=== PATIENT | female | born 1990 | race Caucasian/White ===

== ENCOUNTER 2018-10-20 13:15 | Outpatient (CLI) | payer MEDICAID, SELFPAY ==
[2018-10-20 13:41] VITALS: BMI 26.2
[2018-10-20] MEDS: CLARIFY ORDER NOTE (13:52)
[2018-10-20] MEDS: Lactated Ringers 1,000 ML 999 ML IV (13:53)
[2018-10-20 14:02] LABS: Absolute Lymphocyte Count 1.86 X10^3/ul (0.83-4.51); Absolute Neutrophil Count 4.5 X10^3/uL (2.0-7.7); Basophil# 0.02 X10^3/uL; Basophil% 0.3 % (0-1); Eosinophil# 0.19 X10^3/uL; Eosinophils% 2.7 % (0-5); Hematocrit 30.8 % (37-47); Hemoglobin 10.6 g/dl (12.0-15.0); Lymphocyte # 1.86 X10^3/ul (4.0); Lymphocyte % 26.1 % (19-41); Mean Corp Hgb Conc 34.4 g/gl (32-36); Mean Corpuscular Hgb 32.6 pg (27.0-32.0); Mean Corpuscular Volume 94.8 fL (81-99); Mean Platelet Vol. 9.6 fl (6.2-12.0); Monocyte# 0.56 X10^3/uL; Monocyte% 7.8 % (0-10); Neutrophil # 4.47 X10^3/uL (2.7-7.7); Neutrophil % 62.5 % (47-70); Platelet Count 182 K/mm3 (150-450); RBC Distribution Width CV 13.3 % (11.6-14.6); RBC Distribution Width SD 46.4 fl (35.1-43.9); Red Blood Count 3.25 M/mm3 (4.2-5.4); White Blood Count 7.1 K/mm3 (4.4-11.0)
[2018-10-20 14:05] LABS: POSITIVE COUNT NO; POSITIVE DIFFERENTIAL NO; POSITIVE MORPHOLOGY NO
[2018-10-20] MEDS: proCHLORPERazine 10 MG/2 ML Vial IV (14:15)
[2018-10-20 14:20] LABS: ALB/GLOB Ratio 0.8 RATIO (0.9-2.4); AST(SGOT) 15 U/L (15-37); Alanine Aminotransfer ALT/SGPT 16 U/L (13-56); Albumin, Serum 2.7 g/dL (3.2-5.0); Alkaline Phosphatase 76 U/L (45-117); Anion Gap 5 (5-15); BUN 7 mg/dL (7-18); BUN/Creat Ratio 14.1 RATIO (10-20); Chloride 107 mmol/L (98-107); EST Glomerular Filtration Rate 159 mL/min (>60); Est Glom Filt Rate - Afr Amer 192 mL/min (>60); Estimated Creatinine Clearance 133.67 ml/min; Globulin 3.4 g/dL (2.2-4.2); Glucose 93 mg/dL (74-106); Protein, Total 6.1 g/dL (6.4-8.2); Sodium Level 138 mmol/L (136-145)
--- NOTE | 2018-10-23 13:27 | OB.TRI.NOTE ---
History of Present Illness Date of Service: 10/20/18 Was patient seen by the physician?: Yes Reason For Visit: N/V Date of Service: 10/20/18 Final EMIGDIO: 12/03/18 Gestational age: 33w5d History of Present Illness: 28-year-old 4 para 3 female at 33+ gestational weeks presented to the office today complaining decreased movement. She states she's had a cold for about 3 days with some congestion. She was seen in urgent care yesterday for this. She denies a productive cough and she's had no fever. However she does complain that she is feeling weak and tired and has had persistent nausea and vomiting since late last evening. She states her last emesis with an hour ago. They're nonbloody. She denies any diarrhea or constipation. She denies any blood in her stools or dark tarry stools. Her urine was dark and concentrated when she left this is sampled today. She has decreased appetite. She denies any sick contacts. her is complicated to date by opioid abuse disorder and she is on Subutex maintenance. she is abused multiple substances in the past including IV injection of substances. She continues to smoke cigarettes daily.She is also had Trichomonas this and bacteria that's been treated. Her past medical history significant for asthma. obstetrical history: She's had 3 full-term vaginal deliveries. Allergies No Known Allergies Allergy (Verified 10/20/18 13:48) Laboratory Studies: Laboratory Tests 10/20/18 10/20/18 Range/Units 13:50 13:50 WBC 7.1 (4.4-11.0) K/mm3 RBC 3.25 L (4.2-5.4) M/mm3 Hgb 10.6 L (12.0-15.0) g/dl Hct 30.8 L (37-47) % MCV 94.8 (81-99) fL MCH 32.6 H (27.0-32.0) pg MCHC 34.4 (32-36) g/gl RDW 13.3 (11.6-14.6) % RDW Differential 46.4 H (35.1-43.9) fl Plt Count 182 (150-450) K/mm3 MPV 9.6 (6.2-12.0) fl Immature Gran % (Auto) 0.600 (0.0-0.9) % Neut % (Auto) 62.5 (47-70) % Lymph % (Auto) 26.1 (19-41) % [place] % (Auto) 7.8 (0-10) % Eos % (Auto) 2.7 (0-5) % Baso % (Auto) 0.3 (0-1) % Absolute Neuts (auto) 4.5 (2.0-7.7) X10^3/uL Absolute Lymphs (auto) 1.86 (0.83-4.51) X10^3/ul Total Counted Not Reportable Sodium 138 (136-145) mmol/L Potassium 4.0 (3.5-5.1) mmol/L Chloride 107 (98-107) mmol/L Carbon Dioxide 26.0 (21.0-32.0) mmol/L Anion Gap 5 (5-15) BUN 7 (7-18) mg/dL Creatinine 0.50 L (0.55-1.02) mg/dL Estim Creat Clear Calc 133.67 ml/min Est GFR (MDRD) Af Amer 192 (>60) mL/min Est GFR (MDRD) Non-Af 159 (>60) mL/min BUN/Creatinine Ratio 14.1 (10-20) RATIO Glucose 93 (74-106) mg/dL Calcium 8.0 L (8.5-10.1) mg/dL Total Bilirubin 0.20 (0.20-1.00) mg/dL AST 15 (15-37) U/L ALT 16 (13-56) U/L Alkaline Phosphatase 76 (45-117) U/L Total Protein 6.1 L (6.4-8.2) g/dL Albumin 2.7 L (3.2-5.0) g/dL Globulin 3.4 (2.2-4.2) g/dL Albumin/Globulin Ratio 0.8 L (0.9-2.4) RATIO Review of Systems Constitutional: Reports: Anorexia, Malaise, Weakness. Denies: Chills, Fever, Night Sweats Eyes: Denies: Blurred vision, Vision Change HEENT: Reports: Sinus Drainage. Denies: Ear Pain, Sore Throat Cardiovascular: Denies: Chest Pain, Edema Respiratory: Reports: Cough. Denies: Shortness of Breath, Wheezing Genitourinary: Denies: Dysuria Physical Exam General: Lethargic, - - awake, alert, appears tired Abdomen: Soft, Non Tender, Non-Distended, Gravid, Appropriate for Gestational Age Extremities:: No edema Estimated gestational size: Appropriate for gestational size NST - FHR Rate Baby A Baseline: normal Variability:: Moderate Accelerations:: 15 x 15 Decelerations:: None NST Reactive:: Yes, Appropriate for gestational age FHR Category:: Category I Uterine Activity:: no uterine contractions Impression/Plan 28-year-old 4 para 3 at 33-5/7 weeks gestation with complaint of nausea and vomiting with dehydration. Laboratory studies were reviewed. After IV fluids, patient had no further emesis. She was discharged home to be a bland diet for the next 24-48 hours, she should return if persistent nausea and vomiting again. This is likely based more than viral gastroenteritis that she's not had any diarrhea. she also complained of decreased movement. Nonstress test is reactive. She is on Subutex maintenance therapy, she will continue her follow-up with her physician regarding this. She is to follow-up in our office in 1 week or as needed. She is to do daily kick counts. She should call the office if she gets a fever, worsening of any of her symptoms or she has any other concerns. Patient is comfortable with this plan.
== END 2018-10-20 15:30 | disposition home or self-care (01) ==
LOC: WPOUT 13:29 → WP 13:30
PROVIDERS: Referring Provider Obstetrics & Gynecology; Visit Provider Obstetrics & Gynecology
DX: O21.2 Late vomiting of pregnancy (principal); O26.893 Other specified pregnancy related conditions, third trimester; E86.0 Dehydration; J45.909 Unspecified asthma, uncomplicated; O99.323 Drug use complicating pregnancy, third trimester; F11.10 Opioid abuse, uncomplicated; O99.333 Smoking (tobacco) complicating pregnancy, third trimester; F17.210 Nicotine dependence, cigarettes, uncomplicated; Z3A.33 33 weeks gestation of pregnancy
CPT/HCPCS: 96361; 96374; 36415; 59025; 59050; 80053; 85025; 99218; J7120; G0378

== ENCOUNTER 2018-11-04 21:30 | Outpatient (CLI) | payer MEDICAID, SELFPAY ==
[2018-11-04 21:52] VITALS: BMI 26.2
[2018-11-04 22:31] LABS: Bacteria 0 SEEN /hpf (None Seen); Mucous, Urine 0 SEEN /hpf (<or=2+); Red Blood Cells-Urine 0 SEEN /hpf (0-5)
[2018-11-04 22:40] LABS: Color, Urine Yellow (Yellow); Glucose, Dipstick Normal (Normal); Ketone-Dipstick 15 mg/dl (Negative); Leukocyte Esterase-Dipstick 25 /ul (Negative); Nitrite-Dipstick Negative (Negative); Occult Blood-Urine Negative /ul (Negative); Protein-Dipstick Negative (Negative); Specific Gravity, Urine 1.005 (1.002-1.030); Urine Bilirubin Dipstick Negative (Negative); Urine Clarity Clear (Clear); Urine Urobilinogen Normal (Normal)
[2018-11-04 22:51] LABS: Absolute Neutrophil Count 7.3 X10^3/uL (2.0-7.7); Basophil# 0.01 X10^3/uL; Basophil% 0.1 % (0-1); Eosinophil# 0.22 X10^3/uL; Hemoglobin 11.8 g/dl (12.0-15.0); Lymphocyte % 22.6 % (19-41); Mean Corp Hgb Conc 34.7 g/gl (32-36); Mean Corpuscular Hgb 32.7 pg (27.0-32.0); Mean Corpuscular Volume 94.2 fL (81-99); Mean Platelet Vol. 9.6 fl (6.2-12.0); Monocyte# 1.01 X10^3/uL; Monocyte% 9.1 % (0-10); Neutrophil # 7.25 X10^3/uL (2.7-7.7); Neutrophil % 65.6 % (47-70); POSITIVE COUNT NO; POSITIVE DIFFERENTIAL NO; POSITIVE MORPHOLOGY NO; Platelet Count 194 K/mm3 (150-450); RBC Distribution Width CV 13.3 % (11.6-14.6); RBC Distribution Width SD 45.6 fl (35.1-43.9); Red Blood Count 3.61 M/mm3 (4.2-5.4); White Blood Count 11.1 K/mm3 (4.4-11.0)
[2018-11-04] MEDS: Lactated Ringers 1,000 ML 999 ML IV (22:51)
[2018-11-04] MEDS: Ondansetron 4 MG/2 ML Vial IV (22:51)
[2018-11-04 22:56] LABS: Squamous Epithelial Cells - UA 5-10 SEEN /hpf (5-10); White Blood Cells 0-5 SEEN /hpf (0-5)
[2018-11-04 23:06] LABS: ALB/GLOB Ratio 0.8 RATIO (0.9-2.4); AST(SGOT) 15 U/L (15-37); Alanine Aminotransfer ALT/SGPT 15 U/L (13-56); Albumin, Serum 2.9 g/dL (3.2-5.0); Alkaline Phosphatase 93 U/L (45-117); Anion Gap 5 (5-15); BUN 8 mg/dL (7-18); BUN/Creat Ratio 17.1 RATIO (10-20); Calcium,Total 8.6 mg/dL (8.5-10.1); Chloride 108 mmol/L (98-107); Creatinine, Serum 0.47 mg/dL (0.55-1.02); EST Glomerular Filtration Rate 170 mL/min (>60); Est Glom Filt Rate - Afr Amer 205 mL/min (>60); Globulin 3.7 g/dL (2.2-4.2); Glucose 80 mg/dL (74-106); Potassium 3.7 mmol/L (3.5-5.1); Protein, Total 6.6 g/dL (6.4-8.2); Sodium Level 138 mmol/L (136-145)
[2018-11-04 23:33] VITALS: BP 96/51; PULSE 85; RESP 18; TEMP 36.1
[2018-11-04] MEDS: Acetaminophen 500 MG Tablet 1000 MG PO (23:42)
--- NOTE | 2018-11-09 12:15 | OB.TRI.PN_ITS ---
Progress Notes Date of Service: 11/04/18 Progress Note: 28 year old female at 35w6d gestational age presented to L&D with complaint of uterine contractions. No vaginal bleeding or LOF. O: NST reactive. 135, moderate variability, accels A: Abdominal pain P: 1) NST reactive 2) Irregular contractions, no cervical change or progression. D/C home. PTL precautions reviewed 3) Follow up in office as scheduled. Laboratory Studies: Laboratory Tests 11/04/18 11/04/18 11/04/18 Range/Units 22:40 22:40 22:25 WBC 11.1 H (4.4-11.0) K/mm3 RBC 3.61 L (4.2-5.4) M/mm3 Hgb 11.8 L (12.0-15.0) g/dl Hct 34.0 L (37-47) % MCV 94.2 (81-99) fL MCH 32.7 H (27.0-32.0) pg MCHC 34.7 (32-36) g/gl RDW 13.3 (11.6-14.6) % RDW Differential 45.6 H (35.1-43.9) fl Plt Count 194 (150-450) K/mm3 MPV 9.6 (6.2-12.0) fl Immature Gran % (Auto) 0.600 (0.0-0.9) % Neut % (Auto) 65.6 (47-70) % Lymph % (Auto) 22.6 (19-41) % [place] % (Auto) 9.1 (0-10) % Eos % (Auto) 2.0 (0-5) % Baso % (Auto) 0.1 (0-1) % Absolute Neuts (auto) 7.3 (2.0-7.7) X10^3/uL Absolute Lymphs (auto) 2.50 (0.83-4.51) X10^3/ul Total Counted Not Reportable Sodium 138 (136-145) mmol/L Potassium 3.7 (3.5-5.1) mmol/L Chloride 108 H (98-107) mmol/L Carbon Dioxide 25.0 (21.0-32.0) mmol/L Anion Gap 5 (5-15) BUN 8 (7-18) mg/dL Creatinine 0.47 L (0.55-1.02) mg/dL Estim Creat Clear Calc 142.20 ml/min Est GFR (MDRD) Af Amer 205 (>60) mL/min Est GFR (MDRD) Non-Af 170 (>60) mL/min BUN/Creatinine Ratio 17.1 (10-20) RATIO Glucose 80 (74-106) mg/dL Calcium 8.6 (8.5-10.1) mg/dL Total Bilirubin 0.20 (0.20-1.00) mg/dL AST 15 (15-37) U/L ALT 15 (13-56) U/L Alkaline Phosphatase 93 (45-117) U/L Total Protein 6.6 (6.4-8.2) g/dL Albumin 2.9 L (3.2-5.0) g/dL Globulin 3.7 (2.2-4.2) g/dL Albumin/Globulin Ratio 0.8 L (0.9-2.4) RATIO Urine Color Yellow (Yellow) Urine Clarity Clear (Clear) Urine pH 7.0 (5.0 - 8.0) Ur Specific [place] 1.005 (1.002-1.030) Urine Protein Negative (Negative) mg/dl Urine Glucose (UA) Normal (Normal) mg/dl Urine Ketones 15 H (Negative) mg/dl Urine Occult Blood Negative (Negative) /ul Urine Nitrite Negative (Negative) Urine Bilirubin Negative (Negative) mg/dL Urine Urobilinogen Normal (Normal) mg/dl Ur Leukocyte Esterase 25 H (Negative) /ul Urine RBC 0 SEEN (0-5) /hpf Urine WBC 0-5 SEEN (0-5) /hpf Ur Squamous Epith Cells 5-10 SEEN (5-10) /hpf Urine Bacteria 0 SEEN (None Seen) /hpf Urine Mucus 0 SEEN (<or=2+) /hpf
== END 2018-11-04 23:50 | disposition home or self-care (01) ==
LOC: WPOUT 21:51 → WP 21:52
PROVIDERS: Referring Provider Advanced Practice Midwife; Visit Provider Advanced Practice Midwife
DX: O26.893 Other specified pregnancy related conditions, third trimester (principal); R10.9 Unspecified abdominal pain; Z3A.35 35 weeks gestation of pregnancy
CPT/HCPCS: 96361; 96374; 36415; 59025; 59050; 80053; 81001; 85025; 87086; 87088; 99218; J7120; G0378; J2405

== ENCOUNTER 2018-11-26 06:45 | Inpatient (IN) | payer MEDICAID, SELFPAY ==
[2018-11-26 07:28] VITALS: BMI 27.5
[2018-11-26] MEDS: Lactated Ringers 1,000 ML 50 ML IV ×3 (07:55→14:34)
[2018-11-26] MEDS: Oxytocin 30 units/NS 500 ml 30 UNITS/500 ML IV.SOLN IV (08:22)
[2018-11-26 08:31] LABS: Absolute Lymphocyte Count 2.05 X10^3/uL (0.83-4.51); Absolute Neutrophil Count 5.2 X10^3/uL (2.0-7.7); Basophil# 0.02 X10^3/uL; Basophil% 0.2 % (0-1); Eosinophil# 0.26 X10^3/uL; Eosinophils% 3.1 % (0-5); Hemoglobin 12.3 g/dL (12.0-15.0); Lymphocyte # 2.05 X10^3/ul (4.0); Lymphocyte % 24.6 % (19-41); Mean Corp Hgb Conc 34.2 g/dL (32-36); Mean Corpuscular Hgb 32.7 pg (27.0-32.0); Mean Corpuscular Volume 95.7 fL (81-99); Mean Platelet Vol. 10.5 fl (6.2-12.0); Monocyte# 0.77 X10^3/uL; Monocyte% 9.2 % (0-10); NRBC Flagged by Analyzer 0 % (0-5); Neutrophil % 62.4 % (47-70); Platelet Count 174 K/mm3 (150-450); RBC Distribution Width CV 13.5 % (11.6-14.6); RBC Distribution Width SD 46.8 fl (35.1-43.9); Red Blood Count 3.76 M/mm3 (4.2-5.4); White Blood Count 8.3 K/mm3 (4.4-11.0)
--- NOTE | 2018-11-26 08:33 | PCM.HP.OB ---
History History of this : This is a 28 year-old, G [], P [], at weeks gestational age. Medical History: Medical History (Last Updated 11/26/18 @ 08:35 by Disha Fan) Asthma J45.909 Chlamydia A74.9 Polysubstance abuse F19.10 Allergies adhesive tape Allergy (Verified 11/04/18 22:00) Rash latex Allergy (Verified 11/04/18 21:58) Rash Home Medications: Home Medications Buprenorphine HCl/Naloxone HCl [Suboxone 8 mg-2 mg Sl Film] 8 mg PO DAILY 10/20/18 Docusate Sodium [Stool Softener] 100 mg PO DAILY 10/20/18 Ferrous Sulfate 325 mg PO DAILY 10/20/18 Pnv No.95/Ferrous Fum/Folic AC [ Caplet] 1 each PO DAILY 10/20/18 Smoking Status: Current every day smoker Substance Use Type: Heroin - on subutex Heart Tracin with mod variability, accels TOCO Analysis: Irregular History Past Pregnancies: Past Pregnancies Delivery Date Name GA/Weeks Outcome Route Weight Infant Gender Labor Length Anesthesia Delivery Location Provider FOB Labs: see [facility] H&P Physical Exam General: Alert, Oriented x3 Abdomen: Soft, Non Tender, Non-Distended, Gravid Neurological: Cranial nerves II-XII grossly intact STUDENT MINISTRIES DIRECTOR: Normal external genitalia Estimated gestational size: Appropriate for gestational size Cervix Dilation (cm): 3 Station: -1 Effacement (%): 60 Assessment/Plan This is a 28 year-old female at 39 weeks for induction Maternal substance abuse - on subutex Induction - on pitocin GBS negative GC/chlam & trich negative 11/03/18 Pain - plan for epidural Social work consult
[2018-11-26 08:38] LABS: Amphetamine Urine VISTA NEGATIVE (<1000 ng/mL); Barbiturate Urine VISTA NEGATIVE (< 200 ng/mL); Benzodiazepine Urine VISTA NEGATIVE (< 200 ng/mL); Cocaine Urine VISTA NEGATIVE (< 300 ng/mL); Ecstacy Urine VISTA NEGATIVE (< 500 ng/mL); Methadone Urine VISTA NEGATIVE (< 300 ng/mL); PCP Urine VISTA NEGATIVE (< 25 ng/mL); THC Urine VISTA NEGATIVE (< 50 ng/mL); Vista UDS pH Range 5
[2018-11-26] MEDS: fentaNYL-bupivacaine (epidural) 100 ML BAG EPIDURAL ×2 (10:20→14:53)
[2018-11-26 11:53] LABS: BUP Internal Control LINE = VALID (VALID); Buprenorphine Drug Screen Positive (<10 ng/mL)
--- NOTE | 2018-11-26 12:08 | PCM.PN.BLA ---
Progress Note S: Patient comfortable with epidural O: cvx - 3/70/-2 AROM clear fluid. IUPC placed fhts 125 with mod variability, accels tocos Q3 minutes A&P: continue pitocin induction
--- NOTE | 2018-11-26 16:30 | CASEMGMT ---
Social Work Labor and Delivery This telegraphic typewriter operator chief received verbal notification from nursing staff regarding patient/mother of baby (MOB) presentation to the hospital. This telegraphic typewriter operator chief had also received handoff report from [facility] Mike tension worker, prior to delivery, with handoff report of possible social issues for MOB, and concern whether MOB may be able to take baby to [facility] after (based on reports the hide worker received from [facility] staff). This telegraphic typewriter operator chief received call from Ita Hutchison, a nurse for [facility] and [facility] program. Per Anisa, MOB has had some compliance issues since coming to [facility] in September, with an example being that MOB left the house even after being told that could not have a pass to do so. MOB reportedly came back then and apologized, but this is a clear rule that MOB broke. MOB was given another chance however and allowed to continue to live at [facility] for the duration of . Concern voiced about whether MOB will be able to care for baby, and that MOB really needs to be able to care for baby independently at the [facility]. MOB has reportedly exhibited immaturity, irritability and uses words that can be mean. Per Anisa, MOB can return to [facility] but the concern is whether MOB care for baby on own. [facility] would like to be updated as able on how things are going for MOB and baby. Plan: See MOB tomorrow, 11-27-2018, for assessment. -JANNET Lee, SCIENTIFIC INFORMATICS PROJECT LEADER
[2018-11-26] MEDS: Oxytocin 30 units/NS 500 ml 30 UNITS/500 ML IV.SOLN 334 UNITS IV (18:39)
--- NOTE | 2018-11-26 18:58 | PCM.OPRPT ---
Vaginal Delivery Maternal Presentation: Active Labor Amniotic Membrane Rupture Type: Artificial Amniotic Fluid Description: Clear Final EMIGDIO: 12/03/18 Gestational age: 39 Weeks and 0 Days Date of Procedure: 11/26/18 Pre-Operative Diagnosis: Maternal substance abuse, on subutex Post-Operative Diagnosis: Same Surgery/ Procedure Performed: Spontaneous Vaginal Delivery Type of Anesthesia: Epidural Description of Procedure: Patient prepped & draped when c/c/+2. She pushed & delivered the head. head gently guided to allow delivery of anterior & posterior shoulders. No excess traction placed on head. Body delivered & placed on maternal abdomen. 3VC clamped & cut in delayed fashion. Placenta delivered with gentle traction and good uterine tone obtained. Presentation: MAXWELL Placental Delivery Description: Expressed Placenta Disposition: [facility] Cord Vessel Description: 3 Vessels Cord Entanglement: None Estimated Blood Loss: 350ml Infant A gender: Female (1 minute): 8 (5 minute): 9 Episiotomy Description: None Laceration: None Medications given after delivery: IV Pitocin Complications: None
[2018-11-26] MEDS: Oxytocin 30 units/NS 500 ml 30 UNITS/500 ML IV.SOLN 167 UNITS IV (19:10)
[2018-11-26] MEDS: Acetaminophen 500 MG Tablet 1000 MG PO (22:00)
[2018-11-26] MEDS: 0.9% Saline Lock 10 ML Syringe IV (22:01)
[2018-11-26] MEDS: Ondansetron 4 MG/2 ML Vial IV (22:01)
[2018-11-27 00:30] VITALS: BP 94/54; PULSE 62; RESP 16; TEMP 37.1
[2018-11-27] MEDS: Ibuprofen 600 MG Tablet PO ×4 (00:48→20:48)
[2018-11-27 04:00] VITALS: BP 109/49; PULSE 62; RESP 18; TEMP 36.8
[2018-11-27] MEDS: Acetaminophen 500 MG Tablet 1000 MG PO ×2 (06:55→23:29)
--- NOTE | 2018-11-27 07:10 | PN.OBGYN_ITS ---
Subjective: No complaints other than fatigue. - Physical Exam General: Alert, Oriented x3 Abdomen: Soft, Non Tender, Non-Distended, Gravid - ff mid & below umb Extremities: No Calf Tenderness Neurological: Cranial nerves II-XII grossly intact Vital Signs Temp Pulse Resp BP 98.3 F 62 18 109/49 L 11/27/18 04:00 11/27/18 04:00 11/27/18 04:00 11/27/18 04:00 Weight: 150 lb 5.684 oz Body Mass Index (BMI) 27.5 Intake and Output for Last 24 Hours 11/25/18 11/26/18 11/27/18 23:59 23:59 23:59 Intake Total 2398 / 2398 Output Total 500 / 500 Balance 2398 / 2398 -500 / -500 Laboratory Tests Past 24 Hrs 11/26/18 11/26/18 11/26/18 07:45 07:45 07:55 WBC 8.3 RBC 3.76 L Hgb 12.3 Hct 36.0 L MCV 95.7 MCH 32.7 H MCHC 34.2 RDW Std Deviation 46.8 H RDW Coeff of [place] 13.5 Plt Count 174 MPV 10.5 Immature Gran % (Auto) 0.500 Neut % (Auto) 62.4 Lymph % (Auto) 24.6 [place] % (Auto) 9.2 Eos % (Auto) 3.1 Baso % (Auto) 0.2 Absolute Neuts (auto) 5.2 Absolute Lymphs (auto) 2.05 Absolute Nucleated RBC 0.00 Nucleated RBC % 0 Urine Opiates Screen NEGATIVE Ur Buprenorphine Scrn Positive H Urine Methadone Screen NEGATIVE Ur Barbiturates Screen NEGATIVE Ur Phencyclidine Scrn NEGATIVE Ur Amphetamines Screen NEGATIVE U Methamphetamin-MDMA NEGATIVE U Benzodiazepines Scrn NEGATIVE Urine Cocaine Screen NEGATIVE U Cannabinoids Screen NEGATIVE Ur Drug Screen Comment Blood Type Antibody Screen Screen Baby's Blood Type Baby's DULCE 11/26/18 11/26/18 11/26/18 07:55 07:55 22:50 WBC RBC Hgb Hct MCV MCH MCHC RDW Std Deviation RDW Coeff of [place] Plt Count MPV Immature Gran % (Auto) Neut % (Auto) Lymph % (Auto) [place] % (Auto) Eos % (Auto) Baso % (Auto) Absolute Neuts (auto) Absolute Lymphs (auto) Absolute Nucleated RBC Nucleated RBC % Urine Opiates Screen Ur Buprenorphine Scrn Urine Methadone Screen Ur Barbiturates Screen Ur Phencyclidine Scrn Ur Amphetamines Screen U Methamphetamin-MDMA U Benzodiazepines Scrn Urine Cocaine Screen U Cannabinoids Screen Ur Drug Screen Comment Blood Type A NEGATIVE Antibody Screen TNP NEGATIVE Screen NEGATIVE Baby's Blood Type O POSITIVE Baby's DULCE NEGATIVE Medical Necessity - Tobacco Use Smoking Status: Current every day smoker Assessment/Plan PPD #1 Routine care Tobacco use - nicotine patch Substance abuse - on subutex PPBC - plan for nexplanon
[2018-11-27 08:07] VITALS: BP 104/48; PULSE 64; RESP 16; TEMP 37; O2SAT 99
--- NOTE | 2018-11-27 08:10 | NURSING ---
This RN entered room at approx 0745. Pt was on phone and stated They wake me up every two minutes for bullshit things here Pt then told person she was talking to that she hadn't slept all night, and someone has to come hold my baby. Rn then stated importance of pt sleeping. Pt states I am not laying her in that crib when she is shaking,- No jitteriness observed by this RN.- and I am not sending her to that [facility] nursery. This RN reviewed Baby safety and reminded pt she could not sleep with baby in the bed. Pt became more agitated, stated I can see how this day is going to go. Attempts made to calm pt without success. This rn sat down at bedside, talked in calm manner. Pt stated You're harassing me. Pt then put highway construction inspector light and yelling I want another fucking nurse, get her out of here. Ashley, automation/controls manager of special care nursery and multiple RN to room after hearing pt yelling. Attempting to calm pt. At this point this RN left room. Security notified.
[2018-11-27] MEDS: Docusate Sodium 100 MG Capsule PO (08:40)
[2018-11-27] MEDS: BUPRENORPHINE HCL 8 MG TAB.SUBL SL (08:41)
[2018-11-27] MEDS: Prenatal Vits Tablet 1 TABLET PO (08:41)
[2018-11-27 13:00] VITALS: BP 109/70; PULSE 73; RESP 16; TEMP 36.7; O2SAT 99
--- NOTE | 2018-11-27 13:00 | CASEMGMT ---
Social Work Assessment Labor and Delivery Unit Date of Referral: 11/26/2018 Time of Referral: 1200 Referred By: RENETTA Underwood Date of Intervention: 11/27/2018 Time of Intervention: 1300 Reason for Referral: maternal substance use; on Subutex; living at [facility]; non custody of older children. History obtained from: mother of baby (JES) Naty Briones, medical records; with MOB?s permission, MOB?s foster mother Lucinda Kyle present. Household composition: Currently living at [facility] treatment since September 14, 2018. MOB voices intent to return to this treatment facility with baby. Patient's parent/guardian status: MOB is 28 year old single female. MOB reports paternity is between 2 men and does not plan to involve possible fathers for at least a year, so that MOB can work on own recovery. JES now has 4 children. The oldest 3 have been legally adopted. Minor children include: Moo (Sandhya) Jeramie, age 8, adopted by Katerine Bobo. Yan (Felipe) Kyle, age 6, adopted by Bill Wright. [facility] Kyle, age 4, adopted by the Jose Luis. baby girl to be named Oneil Wright, born on [birth year]2018. Medical History: JES is G4, P3 to 4 after delivering Oneil. MOB with late care starting at 29 weeks gestation. MOB found out about at [facility] where MOB sought treatment in July 2018 for an overdose of heroin laced with fentanyl. JES then went to detox in September and started PNC once in residential treatment. First PNC appointment 09-21-2018. Medical record indicates MOB has history of asthma and hemorrhage. PNC record indicates first ultrasound identified as a twin and then later identified as a stafford . MOB plans to get Nexplanon arm implant for control. Baby Oneil born weighing 6 pounds 7 ounce. Apgars 8 and 9 at 1 and 5 minutes of life. Educational Status: Completed through the 11th grade and dropped out in August, 2 months before set to graduate. MOB reports to be able to read, write, and understand what is read. Financial Status: Food and medical through [facility]. Supplies: MOB reports to have pack-n-play, crib, car seat, clothing, diapers, wipes, and swaddler. MOB planning to breast feed baby. Childcare/Caregiver(s): MOB is planning to be primary caregiver and then look for day care when baby is 8 weeks old. Transportation: Relies on bus passes, Lucinda, cousin Paige, and staff from [facility]. Programs/Agencies Involved: [facility] for food and medical, [place], [facility] for counseling/MAT/residential treatment, and [facility]. [facility] and also used the [facility] program. Children Services/Legal Issues: No current legal issues discussed or reported. MOB reports past history with [facility] for older children. MOB reports the oldest 2 children went into care of family in 2012, when JES just kind of stopped coming around. In 2014 children services became involved at time of ?s (now named Twila) due to being positive for cocaine a . As a minor, JES was in foster care and lived with Lucinda on and off from the age of 15. Behavioral Health Issues: Mental Health History: MOB reports history of anxiety but reports it is ?normal anxiety? when this bond writer was describing signs and symptoms of mood and anxiety issues. MOB denies history of depression, anxiety, or bipolar disorder. Denies any history of suicidal ideation, plan, intent, or attempts; denies similarly regarding homicide and harm to others. Substance Use History: Chart indicates maternal history of alcohol use, up to a 1/5 of liquor a day prior to seeking detox in September 2018. Chart indicates MOB with use of heroin for only a few months, and that MOB used mostly because friends were using. MOB did use fentanyl at least once, in July when MOB overdosed. MOB states had to have 9 doses of Narcan, and that MOB did not know heroin was laced. MOB reports drug of choice has been cocaine. Chart indicated cocaine use has been for years, with MOB both smoking and using IV. MOB reports has used some marijuana during this but not much. Denies use of other illicit drugs. MOB reports sober date as 09.11.2018 when MOB went in for detox. MOB started on Subutex when in detox at [facility] from 09-11 to 09-14-2018. Family History: not discussed. Drug Screens: maternal screen on 09/11/2018 positive for cocaine and Negative on 11/26/2018 with the exception of Subutex. Baby?s urine also negative except for Subutex. Meconium is pending. Baby receiving ABI scoring and so far scores are ranging 1-3. Family/Social Stressors: Maternal substance use, active during but did decide to seek out treatment for the first time ever during this . Late care. MOB voices worry about whether will be given the chance to take baby back to [facility]. Support Systems: Lucinda, MOB?s foster mother who has also adopted 2 of MOB?s older children. Lucinda has identified that if for some reason MOB is not able to take baby home, then would be prepared to care for this baby too. Paige Wright is a cousin and a good support. MOB has counselor Chiquita at the [facility]. Depression/Shaken Baby/Safe Sleeping: MOB able to give appropriate responses on shaken baby. Educated to safe sleeping. Educated to depression and anxiety, risk factors present, and importance of MOB accepting help and support if needed. ASSESSMENT: MOB willing to meet with this bond writer and indicated that it is okay for Lucinda to be present. MOB talkative and open about all subjects, even spontaneously informing this bond writer in front of Lucinad that MOB was prostituting self for drugs during active phase of addiction. MOB was pleasant with this bond writer, maintained polite and respectful manner, did not cuss. MOB held good eye contact, tearful at times and cried openly at one point, apologizing and making statements that this bond writer will now think MOB to be ?crazy? because MOB had cried. MOB anxious and affect congruent to mood. MOB did show irritability at one point when topic discussed/broached about courtesy room availability, as evidenced by MOB staring off, facial features tensing and tone becoming more abrupt. MOB circumstantial at times and often turned focus on telling this bond writer how much MOB has done in treatment and that MOB is getting ready to move to transitional housing/sober living, that has just anther month and a half at the residential home; MOB reports to get along with everyone. MOB admits to having some difficulty at the beginning at [facility], that did walk off one time but came back and apologize for behaviors. MOB with limited insight and judgement regarding the topic of mood and anxiety issues, as MOB interjected that does not have this problem, that feeling good, not seeming to hear that MOB is at risk due to history and stressors, and wanting to focus on MOB's perception that MOB is feeling good, recovery is going good and that ready to take the baby home. MOB reports her children are her life, that really wants to be able to care for the as MOB does not plan to have anymore babies. MOB held the baby for the duration of social work visit. MOB was gentle with baby, had baby to breast a couple of times. Addressed with MOB, MOB?s outburst today with the RN earlier today. MOB voiced her perception as to why MOB reacted in such a way. Listened to MOB?s concerns, emotional support and supportive encouragement given. Discussed with MOB, as to MOB being the person to have control over own emotions and reactions but that staff is here to support MOB if knows what may be helpful. MOB voiced that should not have acted as did but is not going to apologize as did nothing wrong to the RN. This bond writer addressed with MOB need to call children services, which MOB voiced to understand but also hope that MOB will be allowed to keep the baby. Answered MOB?s questions as able. Observed Lucinda try to allow MOB to answer questions, but did interject when engaged by healthcare social worker or by MOB. Lucinda presented as supportive and calming presence to MOB, helped MOB with some reality orientation when MOB started to catastrophize thinking patterns. Lucinda also reframed some of the education that healthcare social worker discussed about courtesy rooms and MOB being able to stay based on availability. Lucinda supported this bond writer?s efforts to try to get MOB to voice plan for self should MOB become irritable again and need to cool off. Going to meetings discussed, remaining engaged with treatment at [facility]. MOB voiced that as long as baby is in the hospital, that will not be leaving the baby. MOB made inference that the baby could be hurt by someone if not around. Addressed with MOB that baby will at [facility] for a minimum of 7 days for ABI monitoring. MOB voices understanding and agreement. Broached that should ABI scores escalate then baby may be moved to [facility] for further care and treatment. Release to [facility] and [facility] signed today for continuity of care. PLAN: Social Work to follow, and plan to call [facility]. Collaborate with [facility] and [facility] as needed or indicated. MOB voices agreement with plan. -TIERA Lee, SURGICAL ELASTIC KNITTER HAND FRAME
--- NOTE | 2018-11-27 14:00 | CASEMGMT ---
Social Work Labor and Delivery Called [facility] ([facility]) and spoke with Milagro Pope. Referral given due to substance exposed . Brief maternal and infant histories provided including concerns received from [place], MOB?s other children being adopted out, MOB's actions and reactions at hospital with nursing today, risk factors present for this family. Also reported MOB entering treatment on own and of seemingly positive support system present from foster mother. [facility] to open case for investigation and agency will be making contact today or Friday. Received call from Anisa at [facility]. Updated that MOB had the baby and looking at a weekend discharge for MOB this weekend sometime. Discussed that MOB can be in a courtesy room, but that MOB did have an outburst today with nursing. Discussed that if MOB would continue to have such outbursts the the courtesy room would likely not be able to be offered. Discussed the matter for MOB?s Subutex. [facility] will dispense 2 days at a time to MOB, so MOB will have to be checking in with the [facility] on a regular basis. Anisa asked to be called by staff when MOB is to be discharged, just to ensure that all can be on the same page for continuity of care of MOB and baby. Met with MOB who was alone with baby. MOB holding the baby. Updated MOB that call to [facility] has been made. Updated that [facility] will be making contact with MOB either today or Friday but this play writer is not sure. Updated to conversation with Anisa at [facility], of expectation to get Subutex for 2 days at a time once MOB is discharged as a patient. Encouraged MOB to be in contact with [facility] too. MOB voices agreement to this plan. MOB pleasant and cooperative with this play writer. Plan: Continue to follow and assist, collaborate with community agencies for after care needs for MOB and baby. -JANNET Lee, MARKETING AUTOMATION ANALYST
--- NOTE | 2018-11-27 15:00 | CASEMGMT ---
Social Work Labor and Delivery Laisha Muller from [facility] ([facility]) to the unit to see mother of baby (MOB). Laisha's contact information is [phone] extension [phone]. This typewriter assembler met with MOB and [facility], as MOB voiced to this typewriter assembler preference for this typewriter assembler to be present and help MOB with answering questions and explaining self. This typewriter assembler just observed interview and interjected at the end when MOB became tearful due to not having an answer today about what [facility] is going to do. Reframed to MOB that [facility] has a job to do, and part of that is looking into all avenues and talking to care providers so that [facility] can make an informed decision about interventions to be taken with this family. Plan: Social Work to follow and assist, continue collaboration with [facility] and [facility] staff. [facility] plans to come back to see MOB on Friday, check on how things are going. -JANNET Lee, SPORTS PHOTOGRAPHER
[2018-11-27 16:16] VITALS: BP 126/81; PULSE 61; RESP 16; TEMP 36.6; O2SAT 99
--- NOTE | 2018-11-27 17:00 | CASEMGMT ---
Social Work Labor and Delivery Met with transitional studies instructor Dori Mcduffie and staffing mgr Corina Higgins for collaboration on plan for MOB and baby moving forward. Updated that talked to MOB this date about need for appropriate behaviors, about importance of self-care and what MOB can do to care for self if feeling frustrated. Discussed that MOB has voiced when feeling overwhelmed that likes to have space for a few minutes to calm down and breath, before having to continue talking. MOB also voiced liking to know what plans are, what to expect and to be part of the decision making process when able. Updated RN?s that [facility] when MOB goes to hotel status, as said agency will be dispensing Subutex 2 days at a time. Provided the RN?s contact information for Anisa, not to be given to MOB. RN?s discussed that MOB can be offered a courtesy room but if MOB acts out as did today then courtesy room will be removed as per discussion with unit management. This telegraphic typewriter operator suggested 2 staff be present for discussion with MOB when rules are presented, so there is no potnetial misunderstanding with MOB later on as to what MOB hears staff provide for education. This telegraphic typewriter operator met with MOB and updated that this telegraphic typewriter operator talked with nursing about MOB liking to have space to breath when feeling overwhelmed. Discussed with MOB about expectation for the courtesy room, explaining to MOB that it is of great importance that MOB use coping skills and stress management should MOB start to feel irritable, as another outburst like today will result in not being able to have a courtesy room, as such outbursts impact the unit as a whole and can create safety issues for others on the unit. MOB voiced understanding and expressed thanks fro being told of expectations. MOB voiced thanks for time social media editor has taken today. Plan: Social work to follow and assist as needed. Continue collaboration with [facility] and [facility] plans to see MOB and baby again on Friday12-01-2018 for updates. Baby to be monitored for ABI for 7 days, MOB will go to hotel status during that time and nursing staff will review rules more in depth at that time. -JANNET Lee, RENTAL BOATS CARETAKER
[2018-11-27 21:00] VITALS: BP 116/76; PULSE 62; RESP 16; TEMP 36.6
[2018-11-28 03:45] VITALS: BP 103/60; PULSE 87; RESP 18; TEMP 37.6
[2018-11-28] MEDS: Ibuprofen 600 MG Tablet PO ×2 (04:00→18:11)
[2018-11-28] MEDS: Acetaminophen 500 MG Tablet 1000 MG PO (08:41)
[2018-11-28 10:00] VITALS: BP 122/86; PULSE 76; RESP 16; TEMP 36.6
[2018-11-28] MEDS: BUPRENORPHINE HCL 8 MG TAB.SUBL SL (11:11)
[2018-11-28 12:47] VITALS: BP 130/71; PULSE 74; RESP 16; TEMP 36.6
--- NOTE | 2018-11-28 12:49 | PCM.PN.OB ---
Subjective: Doing well per patient and nursing staff. Ambulating and taking PO without difficulty. . Denies any headache, visual changes, chest pain, SOB, or other concerns. Baby ABI 4 this afternoon. Appropriate with infant care. Discharge to hotel status today. Requesting Nexplanon insertion. Objective: Reviewed risks, benefits, MOA, and insertion procedure of Nexplanon with patient. Right handed. No contraindications. Patient identified by name and date of . Left upper arm raised above head. Site cleansed and prepped with betadine. 2ml 1% Lidocaine instilled into upper arm at insertion site. Nexplanon inserted into left upper arm without difficulty. Patient tolerated well. Steri strip and pressure dressing applied. To remove pressure dressing in 24hr. - Physical Exam General: Alert, Oriented x3, Cooperative, - - Patient with flight of ideas from one topic to another but pleasant HEENT: Atraumatic, Normocephalic Neck: Trachea Midline Lungs: Clear to auscultation, Normal air movement, No rhonchi, No wheeze Cardiovascular: Regular rate, Regular Rhythm, No murmurs Abdomen: Bowel Sounds Present, - - Fundus firm 2 below U. Extremities: No edema, - - Roney's negative Psych/Mental Status: Normal Affect, Appropriate Vital Signs Temp Pulse Resp BP Pulse Ox 99.7 F H 87 18 103/60 99 11/28/18 03:45 11/28/18 03:45 11/28/18 03:45 11/28/18 03:45 11/27/18 16:16 Oxygen Delivery Method Room Air Weight: 150 lb 5.684 oz Body Mass Index (BMI) 27.5 Intake and Output for Last 24 Hours 11/26/18 11/27/18 11/28/18 23:59 23:59 23:59 Intake Total 2398 / 2398 Output Total 500 / 500 Balance 2398 / 2398 -500 / -500 Medical Necessity - Tobacco Use Smoking Status: Current every day smoker Assessment/Plan A:PPD #2 Nexplanon insertion, Left upper arm P: 1) Reviewed discharge instructions. Discharge to Hotel status as baby with ABI and requiring further stay. 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 They will bring medication to hospital. 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 3) Nexplanon inserted today, patient tolerated well. 4) To follow up in 2 weeks and 6 weeks . 5) Is not using Nicotine patch, advised smoking cessation 6) [facility]
[2018-11-28] MEDS: Etonogestrel 68 MG IMPLANT SQ (14:47)
[2018-11-28] MEDS: Prenatal Vits Tablet 1 TABLET PO (17:17)
[2018-11-28] MEDS: Montelukast 10 MG Tablet PO (17:17)
[2018-11-28 18:00] VITALS: BP 130/71; PULSE 74; RESP 16; TEMP 36.6
--- NOTE | 2018-11-29 17:41 | DCINST_ITS ---
Discharge Diet: No Restrictions Discharge Activity: Return to Normal Activity, May not drive while taking narcotic pain medications., May Shower, May Take a Tub Bath May resume sexual activity in: 4-6 weeks Additional Activity Instructions:: Nothing in the vagina for 4-6 weeks. You may return to work/school in 6 weeks. Call your doctor if your incision/area has: Continuous Slow Oozing, Sudden Increased Bleeding, Increased Pain/ Swelling, Increased Redness, Foul Smelling Discharge Call your doctor if you observe: Fever of 101 or Higher, Inability to urinate, Inability to have a bowel movement, Using more than one pad per hour, Shortness of breath, Chest pain, Increased palpitations (irregular heartbeat), Calf discomfort Instructions: After a Vaginal , at Home Additional Instructions: If you experience any of the following, contact your healthcare provider. * Bleeding that soaks a pad every hour for 2 hours * Fever 100.4 or higher * Unrelieved incision or abdominal pain * Swelling, redness, discharge or bleeding from your incision or episiotomy site * Your incision begins to separate * Problems urinating (including inability to urinate or burning while urinating). * Visual changes * Severe headache * Flu-like symptoms * Pain or redness in one of both of your breasts * Pain, warmth, tenderness or swelling in your legs, especially the calf area * Frequent nausea and vomiting * Symptoms of depression or anxiety If you experience any of the following, call 911 or go to the nearest Emergency Room. * Chest pain * Problems breathing * Seizure activity * Partial or complete paralysis of a body part, slurred speech, weakness or drooping of the face, or a sudden inability to walk or hold your balance Allergies/Adverse Reactions: Allergies adhesive tape Allergy (Verified 11/04/18 22:00) Rash latex Allergy (Verified 11/04/18 21:58) Rash Medications to take at Discharge Buprenorphine HCl/Naloxone HCl [Suboxone 8 mg-2 mg Sl Film] 8 mg PO DAILY 10/20/18 Ferrous Sulfate 325 mg PO DAILY 10/20/18 Pnv No.95/Ferrous Fum/Folic AC [ Caplet] 1 each PO DAILY 10/20/18 Buprenorphine HCl 8 mg SL DAILY tab.subl 11/28/18 Ibuprofen [Motrin] 600 mg PO Q6H PRN PRN tab 07/20/19 Montelukast [Singulair] 10 mg PO DAILY@1700 tab 11/28/18 Please Follow Up With: Disha Fan When: Call to make an appointment with your doctor in 2 weeks and 6 weeks. Primary Care Physician: Care Physician,No Primary [Primary Care Provider] - Test Results: Test results from this visit will be discussed in further detail at your follow- up appointment, if applicable.
== END 2018-11-28 19:00 | disposition home or self-care (01) | DRG 560 ==
PROVIDERS: Admitting Provider Obstetrics & Gynecology; Referring Provider Obstetrics & Gynecology; Visit Provider Obstetrics & Gynecology
DX: O99.324 Drug use complicating childbirth (principal); F19.10 Other psychoactive substance abuse, uncomplicated; O99.334 Smoking (tobacco) complicating childbirth; Z3A.39 39 weeks gestation of pregnancy; Z37.0 Single live birth
CPT/HCPCS: 59050; 80307; 85025; 85461; 86850; 86900; 90384; 99218; J7120; A4216; G0378; J2405; J2790

== ENCOUNTER 2019-01-26 15:22 | Emergency (ER) | payer MEDICAID, SELFPAY ==
[2018-12-18 13:52] VITALS: BMI 27.5
[2019-01-26] VITALS (11 sets, daily range): BP systolic 98–143; BP diastolic 63–84; PULSE 62–121; RESP 16–23; TEMP 36.9; O2SAT 95–100; BMI 27.4
--- NOTE | 2019-01-26 15:39 | ED.VIS.HA ---
History of Present Illness Chief Complaint: Headache Informant: Patient Onset: Today Context: Sudden, Activity - sleeping; woke her up Timing: Continuous - and pain Quality: Negative for: Similar Prior Headaches Current Severity: Severe Maximum Severity: Severe Worsened by: light Relieved by: nothing Associated Symptoms: Nausea, Vomiting, Blurred Vision, Photophobia. Negative for: Fever, Numbness Injury: - - denies any injury or recent neck strain Narrative: Patient states she woke up this past evening/night with a severe occipital headache that is now global. She is never had a headache like this before. She delivered a baby about 8 weeks ago she states was uncomplicated. She denies having any preeclampsia or other issues with blood pressure this . She denies any recent head injury. She states she is having pain all over, and has had a cough that has become productive, started 5 days ago, now with green sputum, when she woke up with a headache she also woke up short of breath. No chest pain except for soreness related to lots of coughing, she states she cannot stop coughing now. She denies any fevers that she knows of. No focal neurologic symptoms in her arms or legs. No neck stiffness or pain. No sore throat or earache. States she feels off balance but denies any spinning. - Past Medical History (1) Anxiety Status: Chronic Past Medical History - Allergies and Home Meds Allergies/Adverse Reactions: Allergies adhesive tape Allergy (Verified 12/18/18 13:43) Rash latex Allergy (Verified 12/18/18 13:43) Rash Primary Care Physician: Jacklyn Polk MD [Primary Care Provider] - 3-5 Days if not improving Smoking Status: Current every day smoker Drugs: None Review of Systems General: Denies: Chills, Fever, Sweats Eyes: Reports: Blurred Vision - bilaterally. Denies: Diplopia ENT: Denies: Bilateral ear pain, Rhinorrhea, Sore throat Cardiovascular: Reports: Chest pain - Soreness from coughing. Denies: Palpitations Respiratory: Reports: Dyspnea, Cough, Sputum Gastrointestinal: Reports: Nausea, Vomiting. Denies: Abdominal pain, Diarrhea, Melena, Hematochezia Genitourinary: Denies: Dysuria, Hematuria, Frequency Musculoskeletal: Reports: Myalgias. Denies: Neck pain, Back pain Skin: Denies: Rash, Wounds Neurological: Reports: Headache. Denies: Weakness, Parasthesia, Numbness Psych: Reports: Anxiety. Denies: Suicidal thoughts Physical Exam Vital Signs/Narrative: Vital Signs Temp Pulse Resp BP Pulse Ox 01/26/19 15:22 98.5 F 121 H 18 143/63 H 100 Inital Vital Signs reviewed: Yes General: Well nourished, Well developed Head: NC, AT Eyes: Perrl - Pupils are approximately 3 mm and equal, EOMI, - - Significantly photophobic, which does limit the details of the exam. In general, patient cooperativeness is limited. ENT: Moist mucous membranes, TM's clear, Nasal congestion - While crying. Clear.. Negative for: Sinus tenderness Neck: Supple, No Lymphadenopathy, Nontender, No Meningismus Cardiovascular: Regular rate, Regular rhythm, No murmurs, Normal S1, Normal S2, Tachycardia Respiratory: No distress, CTA bilaterally Abdomen: Soft, Nontender, Nondistended, Normal bowel sounds Back: Nontender, Normal Inspection Extremities: Nontender, No edema Skin: Normal color, No rash, No Trauma Neuro: Alert, Oriented x3, Cranial nerves II-XII grossly intact, Normal Strength, Normal Sensation, Normal DTR Psychological: Tearful - NIH Stroke Scale 1a Level of Consciousness: 0 1b LOC Questions (Score 2 if aphasic/stupor): 0 1c LOC Commands (Only score 1st attempt): 0 2 Best Gaze (If aphasic, use reflexive mvmts.): 0 3 Visual: 0 4 Facial Palsy: 0 5 Motor Arm Right (UN = amputation/fusion): 0 5 Motor Arm Left: 0 6 Motor Leg Right: 0 6 Motor Leg Left: 0 7 Limb ataxia (Only + if out of proportion): UN - Patient refuses 8 Sensory (Aphasia/stupor=0 or 1, coma=2): 0 9 Best Language: 0 10 Dysarthria (mute, coma=2, intubated=UN): 0 11 Extinction and Inattention (only scored if +): 0 - Refuses to participate in this part of the exam Total Score: 0 Diagnostic/Tx/Re-eval Impressions Brain CT 01/26/19 15:55 IMPRESSION: Normal unenhanced CT scan of the brain. Electronically Signed: Mac Banerjee DO at 16:27 EDT Tel , Service support , Chest X-Ray 01/26/19 15:56 IMPRESSION: Normal x-ray examination of the chest. Electronically Signed: Mac Banerjee DO at 16:28 EDT Tel , Service support , 01/26/19 15:55 Brain/Head without Contrast [CT] Stat 01/26/19 15:56 Chest PA and Lateral [RAD] Stat Laboratory Results 01/26/19 01/26/19 15:45 15:45 WBC 15.9 H RBC 3.95 L Hgb 12.0 Hct 35.4 L MCV 89.6 MCH 30.4 MCHC 33.9 RDW Std Deviation 37.4 RDW Coeff of Lambert 11.6 Plt Count 221 MPV 9.6 Immature Gran % (Auto) 0.600 Neut % (Auto) 76.2 H Lymph % (Auto) 9.2 L Callaway % (Auto) 6.5 Eos % (Auto) 7.2 H Baso % (Auto) 0.3 Absolute Neuts (auto) 12.1 H Absolute Lymphs (auto) 1.47 Nucleated RBC % 0 Sodium 138 Potassium 3.9 Chloride 107 Carbon Dioxide 25.0 Anion Gap 6 BUN 15 Creatinine 0.86 Estim Creat Clear Calc 77.71 Est GFR (MDRD) Af Amer 102 Est GFR (MDRD) Non-Af 84 BUN/Creatinine Ratio 17.5 Glucose 110 H Calcium 8.8 Total Bilirubin 0.50 AST 10 L ALT 16 Alkaline Phosphatase 70 Total Protein 7.3 Albumin 3.6 Globulin 3.7 Albumin/Globulin Ratio 1.0 - EKG Initial EKG Interpretation: Sinus Rhythm, No Acute Injury Pattern - normal EKG Prior: No Prior - Medical Decision Making Work-up is unremarkable except for a nonspecific leukocytosis. Because of the patient's respiratory complaints, although her lungs are clear and her oxygen levels are normal I obtained a chest x-ray, which is normal. This is consistent with viral illness, she is not objectively dyspneic, or subjectively dyspneic at this time. Her headache was treated initially with Reglan prior to the CT results, although she appeared less anxious and in no distress, she said her headache was no better so I treated her with another dose of Reglan in addition to Toradol after the CT returned negative for any bleed or acute problem. On multiple reevaluation she was sleeping comfortably, she would arise and turn her head without any difficulty, saying that she still had a headache but she was obviously feeling improved compared to before. She tolerated oral fluids. She was additionally given IV dihydroergotamine, which she states helped a lot. I feel she is stable for discharge home with a ride. She has blood pressures that are under control and does not meet any criteria for preeclampsia especially 8 weeks out from delivery. ED Disposition - Plan for ED Patient: Disposition: Home or Assisted Living Diagnosis: Cephalgia, URI (upper respiratory infection) Instructions: HEADACHE, Unspecified, URI, Viral, No Abx (Adult) Prescriptions: Metoclopramide [Reglan] 10 mg PO Q6H PRN #10 tab PRN Reason: nausea/headache Prescription Printed Referrals: Jacklyn Polk MD [Primary Care Provider] - 3-5 Days if not improving
[2019-01-26] MEDS: 0.9% Normal Saline 1,000 ML 999 ML IV (15:44)
[2019-01-26] MEDS: Metoclopramide 10 MG/2 ML Vial 5 MG IV ×2 (15:45→17:02)
--- NOTE | 2019-01-26 15:55 | CT_ITS ---
STUDY: CT BRAIN WITHOUT CONTRAST REASON FOR EXAM: Female, 28 years old. Nausea and vomiting since last evening RADIATION DOSAGE (If Supplied By Facility): CTDIvol = ( 44.99 ) mGy, DLP = ( 779.24 ) mGycm TECHNIQUE: Transaxial CT imaging of the brain was performed without administration of intravenous contrast material. Individualized dose optimization techniques were used for this CT. COMPARISON: No relevant priors. FINDINGS: Normal soft tissue structures. Normal calvarium. Normal size ventricles and extra-axial spaces for the patient's age. Normal white matter tracts of the cerebral hemispheres. Normal basal ganglia and thalami. Normal brainstem. Normal cerebellum. There is no intracranial hemorrhage. There are no findings of an acute ischemic infarction. Normal visualized paranasal sinuses. CT/Brain/Head without Contrast IMPRESSION: Normal unenhanced CT scan of the brain. Electronically Signed: Mac Banerjee DO at 16:27 EDT Tel , Service support ,
--- NOTE | 2019-01-26 15:56 | RAD_ITS ---
STUDY: X-RAY CHEST REASON FOR EXAM: Female, 28 years old. Cough and dizziness TECHNIQUE: PA and lateral views of the chest. COMPARISON: None. FINDINGS: The lungs are clear and expanded. There is no demonstrated pleural abnormality. Normal size heart. Normal mediastinum and pearl. Normal visualized pulmonary arteries. Normal visualized aortic arch and descending thoracic aorta. Normal visualized thoracic spine. Normal visualized ribs, clavicles, and shoulders. There is no demonstrated abnormality of the visualized soft tissue structures of the upper abdomen. RAD/Chest PA and Lateral IMPRESSION: Normal x-ray examination of the chest. Electronically Signed: Mac Banerjee DO at 16:28 EDT Tel , Service support ,
[2019-01-26 16:05] LABS: Absolute Lymphocyte Count 1.47 X10^3/uL (0.83-4.51); Absolute Neutrophil Count 12.1 X10^3/uL (2.0-7.7); Basophil# 0.05 X10^3/uL; Basophil% 0.3 % (0-1); Eosinophil# 1.14 X10^3/uL; Eosinophils% 7.2 % (0-5); Hematocrit 35.4 % (37-47); Lymphocyte # 1.47 X10^3/ul (4.0); Lymphocyte % 9.2 % (19-41); Mean Corp Hgb Conc 33.9 g/dL (32-36); Mean Corpuscular Hgb 30.4 pg (27.0-32.0); Mean Corpuscular Volume 89.6 fL (81-99); Mean Platelet Vol. 9.6 fl (6.2-12.0); Monocyte# 1.03 X10^3/uL; Monocyte% 6.5 % (0-10); NRBC Flagged by Analyzer 0 % (0-5); Neutrophil # 12.12 X10^3/uL (2.7-7.7); Neutrophil % 76.2 % (47-70); Platelet Count 221 K/mm3 (150-450); RBC Distribution Width CV 11.6 % (11.6-14.6); RBC Distribution Width SD 37.4 fl (35.1-43.9); Red Blood Count 3.95 M/mm3 (4.2-5.4); White Blood Count 15.9 K/mm3 (4.4-11.0)
[2019-01-26 16:19] LABS: AST(SGOT) 10 U/L (15-37); Alanine Aminotransfer ALT/SGPT 16 U/L (13-56); Albumin, Serum 3.6 g/dL (3.2-5.0); Alkaline Phosphatase 70 U/L (45-117); Anion Gap 6 (5-15); BUN 15 mg/dL (7-18); BUN/Creat Ratio 17.5 RATIO (10-20); Calcium,Total 8.8 mg/dL (8.5-10.1); Chloride 107 mmol/L (98-107); Creatinine, Serum 0.86 mg/dL (0.55-1.02); EST Glomerular Filtration Rate 84 mL/min (>60); Est Glom Filt Rate - Afr Amer 102 mL/min (>60); Estimated Creatinine Clearance 77.71 ml/min; Globulin 3.7 g/dL (2.2-4.2); Glucose 110 mg/dL (74-106); Potassium 3.9 mmol/L (3.5-5.1); Protein, Total 7.3 g/dL (6.4-8.2); Sodium Level 138 mmol/L (136-145)
[2019-01-26] MEDS: Ketorolac 30 MG/ML Syringe IV (17:02)
--- NOTE | 2019-01-26 17:03 | ED.RN ---
pt breathing even and unlabored. resting w eyes closed. responds to gental touch. sleeps through voiced and mild nise in room
[2019-01-26] MEDS: Dihydroergotamine 1 MG/ML Ampul IV (20:33)
--- NOTE | 2019-01-26 22:27 | NURSING ---
pt calling for a ride
== END 2019-01-26 22:28 | disposition home or self-care (01) ==
PROVIDERS: Emergency Provider Emergency Medicine; Family Provider Internal Medicine; PCP Internal Medicine
DX: R51 Headache (principal); J06.9 Acute upper respiratory infection, unspecified; F17.200 Nicotine dependence, unspecified, uncomplicated
CPT/HCPCS: 70450; 71046; 80053; 85025; 96361; 96374; 96375; 96376; 99283; J7030; A4216; J1110

== ENCOUNTER 2019-08-30 12:18 | Emergency (ER) | payer OTHER, SELFPAY ==
[2019-06-24 14:56] VITALS: BMI 25.9
[2019-08-30 12:20] VITALS: BP 131/91; PULSE 82; RESP 17; TEMP 36.7; O2SAT 99; BMI 23.6
--- NOTE | 2019-08-30 12:32 | ED.VIS.GEN ---
History of Present Illness Chief Complaint: Substance Abuse Informant: Patient Narrative: Presents with withdrawal symptoms she has not had her Suboxone in the past 5 days. She has some nausea, anxiety and decreased p.o. intake. She feels like she cannot go to work this afternoon and she really wants to and needs to be at work. She did not realize that she had a canceled appointment for her Suboxone due to coronavirus and now it is over the phone appointments, she can get in to see her Suboxone prescriber virtually either tomorrow or the next day. She does not want admission or any other changes she just wants to feel better so she can be able to go to work today. Past Medical History - Allergies and Home Meds Allergies/Adverse Reactions: Allergies adhesive tape Allergy (Verified 08/30/19 12:19) Rash latex Allergy (Verified 08/30/19 12:19) Rash Primary Care Physician: Jacklyn Polk MD [Primary Care Provider] - Past Medical History: - - Opiate addiction Smoking Status: Current every day smoker Review of Systems All systems negative except as indicated General: Denies: Fever Eyes: Denies: Visual changes - bilaterally ENT: Denies: Sore throat Cardiovascular: Denies: Chest pain Respiratory: Denies: Dyspnea Gastrointestinal: Reports: Nausea. Denies: Vomiting Musculoskeletal: Denies: Myalgias, Arthralgias Neurological: Denies: Weakness Psych: Reports: Anxiety. Denies: Suicidal thoughts Endocrine: Denies: Polyuria, Polydipsia Physical Exam Vital Signs/Narrative: Vital Signs Temp Pulse Resp BP Pulse Ox 08/30/19 12:20 98.1 F 82 17 131/91 H 99 General: Well nourished, Well developed, - - Slightly anxious appearing Head: Normocephalic Eyes: Perrl, EOMI ENT: - - Mildly dry mucous membranes Neck: Supple Cardiovascular: Regular rate, Regular rhythm Respiratory: No distress Abdomen: Soft, Nontender Back: Nontender Extremities: Nontender, No edema. Negative for: Tenderness Skin: Normal color Neurological: Alert, Normal Strength, Normal Sensation Diagnostic/Tx/Re-eval - Medical Decision Making Patient will be given clonidine, Phenergan and Vistaril. She requested IV fluids which will be given otherwise I will discharge her with reassurance and antiemetics she is to call her addiction doctor tomorrow. ED Disposition - Plan for ED Patient: Disposition: Home or Assisted Living Diagnosis: Acute drug withdrawal syndrome Instructions: ED Withdrawal Narcotic Prescriptions: proMETHazine tablet [Phenergan tablet] 50 mg PO Q4H PRN PRN #15 tab PRN Reason: Nausea Transmission Status: Pending to [facility] hydrOXYzine pamoate capsule [Vistaril] 50 mg PO TID PRN PRN #30 cap PRN Reason: Anxiety Transmission Status: Pending to [facility] Referrals: Jacklyn Polk MD [Primary Care Provider] - 3-5 Days
[2019-08-30] MEDS: 0.9% Normal Saline 1,000 ML 1000 ML IV (13:20)
[2019-08-30] MEDS: proMETHazine 25 MG/ML Syringe 12.5 MG IV (13:21)
[2019-08-30] MEDS: hydrOXYzine 50 MG/ML Vial IM (13:22)
[2019-08-30] MEDS: cloNIDine HCl 0.1 MG Tablet 0.2 MG PO (13:24)
== END 2019-08-30 14:27 | disposition home or self-care (01) ==
LOC: ED 14:15
PROVIDERS: Emergency Provider Emergency Medicine; PCP Internal Medicine
DX: F11.23 Opioid dependence with withdrawal (principal); F17.200 Nicotine dependence, unspecified, uncomplicated
CPT/HCPCS: 96361; 96372; 96374; 99283; J7030; A4216

== ENCOUNTER 2019-10-11 21:38 | Emergency (ER) | payer OTHER, SELFPAY ==
[2019-10-11 21:39] VITALS: BP 123/81; PULSE 88; RESP 16; TEMP 36.7; O2SAT 96; BMI 24.8
[2019-10-11 22:34] LABS: Absolute Lymphocyte Count 1.43 X10^3/uL (0.83-4.51); Absolute Neutrophil Count 7.5 X10^3/uL (2.0-7.7); Basophil# 0.05 X10^3/uL; Basophil% 0.5 % (0-1); Hematocrit 41.7 % (37-47); Hemoglobin 13.7 g/dL (12.0-15.0); Lymphocyte # 1.43 X10^3/ul (4.0); Lymphocyte % 14.9 % (19-41); Mean Corp Hgb Conc 32.9 g/dL (32-36); Mean Corpuscular Hgb 30.6 pg (27.0-32.0); Mean Corpuscular Volume 93.3 fL (81-99); Mean Platelet Vol. 10.2 fl (6.2-12.0); Monocyte# 0.52 X10^3/uL; Monocyte% 5.4 % (0-10); NRBC Flagged by Analyzer 0 % (0-5); Neutrophil # 7.49 X10^3/uL (2.7-7.7); Platelet Count 272 K/mm3 (150-450); RBC Distribution Width CV 12.3 % (11.6-14.6); RBC Distribution Width SD 42.9 fl (35.1-43.9); Red Blood Count 4.47 M/mm3 (4.2-5.4); White Blood Count 9.6 K/mm3 (4.4-11.0)
[2019-10-11 22:35] LABS: Bacteria 0 SEEN /hpf (None Seen); Mucous, Urine 0 SEEN /hpf (<or=2+); Red Blood Cells-Urine 0 SEEN /hpf (0-5)
[2019-10-11 22:38] LABS: Color, Urine Yellow (Yellow); Glucose, Dipstick Normal (Normal); Ketone-Dipstick 5 mg/dl (Negative); Leukocyte Esterase-Dipstick 100 /ul (Negative); Nitrite-Dipstick Negative (Negative); Occult Blood-Urine 25 /ul (Negative); Protein-Dipstick 15 mg/dl (Negative); Urine Bilirubin Dipstick Negative (Negative); Urine Clarity Turbid (Clear); Urine Urobilinogen 1 mg/dl (Normal)
[2019-10-11 22:44] LABS: Anion Gap 6 (5-15); BUN 11 mg/dL (7-18); Calcium,Total 8.9 mg/dL (8.5-10.1); Chloride 109 mmol/L (98-107); Creatinine, Serum 0.69 mg/dL (0.55-1.02); EST Glomerular Filtration Rate 108 mL/min (>60); Est Glom Filt Rate - Afr Amer 131 mL/min (>60); Glucose 117 mg/dL (74-106); Potassium 3.7 mmol/L (3.5-5.1); Sodium Level 141 mmol/L (136-145)
[2019-10-11 22:52] LABS: Squamous Epithelial Cells - UA 10-25 SEEN /hpf (5-10); White Blood Cells 5-10 SEEN /hpf (0-5)
[2019-10-11 22:54] LABS: Amorphous Sediment 4+
[2019-10-11 23:00] LABS: Internal QC Validated? YES +Cl - CLEAR BKGD
[2019-10-11 23:01] LABS: Pregnancy, Urine Positive Negative
--- NOTE | 2019-10-11 23:01 | US_ITS ---
STUDY: FIRST TRIMESTER OBSTETRICAL ULTRASOUND REASON FOR EXAM: Female, 29 years old bilateral pelvic pain with burning x2 days. No LMP 5 para 4 LMP: TECHNIQUE: Transvaginal TECHNICAL QUALITY: Adequate. PRIOR ULTRASOUND: None. FINDINGS: There is visualization of a single gestational sac in a normal intrauterine position. The mean sac diameter (MSD) measures 0.68 cm, indicating an estimated gestational age (EGA) of 5 weeks, 2 days. The gestational sac shape is within normal limits. There is a visualized yolk sac. The yolk sac measures 0.4 cm. The placenta is non-visualized. There is visualization of an embryo measuring 0.24 cm with cardiac activity 104 bpm, consistent with a gestational age of 5 weeks 6 days.. The estimated gestation age (EGA) by US is 5 weeks, 2 days. The estimated date of delivery (EMIGDIO) by US is 06/08/2020. The uterus measures 8.5 x 7 x 5 cm. There is no demonstrated uterine fibroid. The cervix is closed. The right ovary measures 4 x 2.7 x 2 cm. There is a 2 cm right ovarian cyst. There is no visualized right adnexal mass or complex lesion. The left ovary measures 2.3 x 1.7 x 0.9 cm. There is no left ovarian cyst. There is no visualized left adnexal mass or complex lesion. There is minimal fluid in the cul de sac. There is color flow to both ovaries. US/Transvaginal w/Preg US IMPRESSION: Early intrauterine 5 weeks 4 day gestation with an EMIGDIO of 06/08/2020. No adnexal masses, large pelvic fluid or ovarian torsion. Electronically Signed: Rosa Burks MD at 23:57 EDT , Service support ,
[2019-10-11 23:42] LABS: hCG Titer Quant., Serum 3386 mIU/mL (1-3)
[2019-10-12 00:11] VITALS: RESP 16
--- NOTE | 2019-10-12 00:41 | ED.VIS.GEN ---
History of Present Illness Chief Complaint: General Illness Detail of Chief Complaint: Pelvic pain, possibly Informant: Patient Onset: Days Context: Gradual Onset Current Severity: Mild Maximum Severity: Moderate Narrative: Patient complains of pelvic pain and dysuria. She took a home test a couple days ago that was positive. She stopped taking her Suboxone 5 days ago because she did not want to take it if she was . She feels like she is going through withdrawal. She does report having a fever of 103 last weekend. She denies vomiting or diarrhea. - Past Medical History (1) Asthma Status: Chronic (2) Anxiety Status: Chronic (3) Migraine Status: Chronic Past Medical History - Allergies and Home Meds Allergies/Adverse Reactions: Allergies adhesive tape Allergy (Verified 10/11/19 21:43) Rash latex Allergy (Verified 10/11/19 21:43) Rash Primary Care Physician: Disha Fan MD [STAFF PHYSICIAN] - As soon as possible Prior records reviewed: Yes Smoking Status: Current every day smoker Review of Systems General: Reports: Fever. Denies: Chills Eyes: Denies: Visual changes - bilaterally ENT: Denies: Bilateral ear pain Cardiovascular: Denies: Chest pain Respiratory: Denies: Dyspnea, Cough Gastrointestinal: Reports: Abdominal pain. Denies: Nausea, Vomiting, Diarrhea Genitourinary: Reports: Dysuria, Frequency Musculoskeletal: Denies: Back pain, Extremity Pain Skin: Denies: Rash Hematologic: Denies: Easy bruising, Easy bleeding Allergy: Denies: Uticaria Physical Exam Vital Signs/Narrative: Vital Signs Temp Pulse Resp BP Pulse Ox 10/12/19 00:11 16 10/11/19 21:39 98.1 F 88 16 123/81 H 96 Inital Vital Signs reviewed: Yes General: Well nourished, Well developed Head: Normocephalic ENT: Moist mucous membranes Neck: Supple Cardiovascular: Regular rate, Regular rhythm Respiratory: No distress, CTA bilaterally Abdomen: Soft, Normal bowel sounds, Tender - Mild suprapubic tenderness.. Negative for: Guarding, Rebound tenderness Extremities: Nontender Skin: Normal color Neurological: Alert, Oriented x3 Psychological: Normal affect Diagnostic/Tx/Re-eval Impressions Obstetrics Ultrasound 10/11/19 23:01 IMPRESSION: Early intrauterine 5 weeks 4 day gestation with an EMIGDIO of 06/08/2020. No adnexal masses, large pelvic fluid or ovarian torsion. Electronically Signed: Rosa Burks MD at 23:57 EDT , Service support , 10/11/19 23:01 Transvaginal w/Preg US [US] Stat Laboratory Results 10/11/19 10/11/19 10/11/19 21:45 21:45 22:01 WBC 9.6 RBC 4.47 Hgb 13.7 Hct 41.7 MCV 93.3 MCH 30.6 MCHC 32.9 RDW Std Deviation 42.9 RDW Coeff of Lambert 12.3 Plt Count 272 MPV 10.2 Immature Gran % (Auto) 0.200 Neut % (Auto) 78.0 H Lymph % (Auto) 14.9 L Turner % (Auto) 5.4 Eos % (Auto) 1.0 Baso % (Auto) 0.5 Absolute Neuts (auto) 7.5 Absolute Lymphs (auto) 1.43 Nucleated RBC % 0 Sodium Potassium Chloride Carbon Dioxide Anion Gap BUN Creatinine Estim Creat Clear Calc Est GFR (MDRD) Af Amer Est GFR (MDRD) Non-Af BUN/Creatinine Ratio Glucose Calcium HCG, Quant Urine Color Yellow Urine Clarity Turbid Urine pH 5.0 Ur Specific Carlotta 1.030 Urine Protein 15 H Urine Glucose (UA) Normal Urine Ketones 5 H Urine Occult Blood 25 H Urine Nitrite Negative Urine Bilirubin Negative Urine Urobilinogen 1 H Ur Leukocyte Esterase 100 H Urine RBC 0 SEEN Urine WBC 5-10 SEEN Ur Squamous Epith Cells 10-25 SEEN Amorphous Sediment 4+ Urine Bacteria 0 SEEN Urine Mucus 0 SEEN Urine Test Positive H Blood Type 10/11/19 10/11/19 10/11/19 22:01 22:01 23:10 WBC RBC Hgb Hct MCV MCH MCHC RDW Std Deviation RDW Coeff of Lambert Plt Count MPV Immature Gran % (Auto) Neut % (Auto) Lymph % (Auto) Turner % (Auto) Eos % (Auto) Baso % (Auto) Absolute Neuts (auto) Absolute Lymphs (auto) Nucleated RBC % Sodium 141 Potassium 3.7 Chloride 109 H Carbon Dioxide 26.0 Anion Gap 6 BUN 11 Creatinine 0.69 Estim Creat Clear Calc 96.00 Est GFR (MDRD) Af Amer 131 Est GFR (MDRD) Non-Af 108 BUN/Creatinine Ratio 16.0 Glucose 117 H Calcium 8.9 HCG, Quant 3386 H Urine Color Urine Clarity Urine pH Ur Specific Carlotta Urine Protein Urine Glucose (UA) Urine Ketones Urine Occult Blood Urine Nitrite Urine Bilirubin Urine Urobilinogen Ur Leukocyte Esterase Urine RBC Urine WBC Ur Squamous Epith Cells Amorphous Sediment Urine Bacteria Urine Mucus Urine Test Blood Type A NEGATIVE - Medical Decision Making Test results are discussed with the patient. She feels like she is withdrawing from her Suboxone, but is not showing any outward signs. She was eating snacks while she was here. She was advised that she can take Tylenol as needed for pain. Urine was sent for a culture but did not show obvious signs of urinary infection. She will follow-up with Dr. Anita Fan, her [employer]. ED Disposition - Plan for ED Patient: Disposition: Home or Assisted Living Diagnosis: Pelvic pain, Instructions: ED ECTOPIC RULE OUT Referrals: Disha Fan MD [STAFF PHYSICIAN] - As soon as possible
[2019-10-12 00:50] VITALS: BP 118/66; PULSE 84; RESP 17; O2SAT 98
== END 2019-10-12 00:51 | disposition home or self-care (01) ==
PROVIDERS: Emergency Provider Emergency Medicine; PCP Internal Medicine
DX: O26.891 Other specified pregnancy related conditions, first trimester (principal); R10.2 Pelvic and perineal pain; O99.331 Smoking (tobacco) complicating pregnancy, first trimester; F17.200 Nicotine dependence, unspecified, uncomplicated; Z3A.01 Less than 8 weeks gestation of pregnancy
CPT/HCPCS: 76817; 80048; 81001; 81025; 84702; 85025; 86900; 86901; 87086; 87088; 87186; 99284; A4216

== ENCOUNTER 2019-11-04 14:20 | Emergency (ER) | payer OTHER, SELFPAY ==
[2019-11-04 14:21] VITALS: BP 119/93; PULSE 94; RESP 16; TEMP 36.6; O2SAT 100; BMI 25.6
[2019-11-04 15:50] LABS: Bacteria 0 SEEN /hpf (None Seen); Mucous, Urine 0 SEEN /hpf (<or=2+)
[2019-11-04 15:55] LABS: Color, Urine Yellow (Yellow); Glucose, Dipstick Normal (Normal); Ketone-Dipstick Negative (Negative); Leukocyte Esterase-Dipstick Negative /ul (Negative); Nitrite-Dipstick Negative (Negative); Occult Blood-Urine Negative /ul (Negative); Protein-Dipstick Negative (Negative); Specific Gravity, Urine 1.015 (1.002-1.030); Urine Bilirubin Dipstick Negative (Negative); Urine Clarity Sl. Cloudy (Clear); Urine Urobilinogen Normal (Normal)
[2019-11-04 15:57] LABS: Absolute Lymphocyte Count 2.26 X10^3/uL (0.83-4.51); Absolute Neutrophil Count 7.9 X10^3/uL (2.0-7.7); Basophil# 0.03 X10^3/uL; Basophil% 0.3 % (0-1); Eosinophil# 0.14 X10^3/uL; Eosinophils% 1.3 % (0-5); Hematocrit 38.5 % (37-47); Hemoglobin 13.2 g/dL (12.0-15.0); Lymphocyte # 2.26 X10^3/ul (4.0); Lymphocyte % 20.3 % (19-41); Mean Corp Hgb Conc 34.3 g/dL (32-36); Mean Corpuscular Hgb 31.8 pg (27.0-32.0); Mean Corpuscular Volume 92.8 fL (81-99); Mean Platelet Vol. 9.7 fl (6.2-12.0); Monocyte% 7.2 % (0-10); NRBC Flagged by Analyzer 0 % (0-5); Neutrophil # 7.88 X10^3/uL (2.7-7.7); Neutrophil % 70.5 % (47-70); Platelet Count 265 K/mm3 (150-450); RBC Distribution Width CV 12.3 % (11.6-14.6); RBC Distribution Width SD 41.5 fl (35.1-43.9); Red Blood Count 4.15 M/mm3 (4.2-5.4); White Blood Count 11.2 K/mm3 (4.4-11.0)
[2019-11-04] MEDS: Ondansetron 4 MG/2 ML Vial IV (16:03)
[2019-11-04] MEDS: 0.9% Normal Saline 1,000 ML 1000 ML IV (16:03)
[2019-11-04 16:08] LABS: Anion Gap 8 (5-15); BUN 7 mg/dL (7-18); BUN/Creat Ratio 14.1 RATIO (10-20); Calcium,Total 8.9 mg/dL (8.5-10.1); Chloride 107 mmol/L (98-107); EST Glomerular Filtration Rate 157 mL/min (>60); Est Glom Filt Rate - Afr Amer 191 mL/min (>60); Estimated Creatinine Clearance 132.49 ml/min; Glucose 80 mg/dL (74-106); Potassium 3.7 mmol/L (3.5-5.1); Sodium Level 140 mmol/L (136-145)
[2019-11-04 16:13] LABS: Squamous Epithelial Cells - UA 0-5 SEEN /hpf (5-10)
[2019-11-04 16:14] LABS: Amorphous Sediment 2+; White Blood Cells 0-5 SEEN /hpf (0-5)
--- NOTE | 2019-11-04 16:15 | RAD_ITS ---
STUDY: X-RAY CHEST REASON FOR EXAM: Female, 29 years old. Congestion. Shortness of breath. TECHNIQUE: Frontal view of the chest COMPARISON: 01/26/2019 FINDINGS: The lungs are clear. There are no pleural effusions. There is no pneumothorax. The heart is normal in size. The visualized osseous structures are within normal limits. RAD/Chest 1 View (Portable) IMPRESSION: No acute thoracic pathology. Electronically Signed: Fransisco Cooper, at 16:41 EDT Tel , Service support ,
[2019-11-04 16:16] LABS: Red Blood Cells-Urine 0 SEEN /hpf (0-5)
--- NOTE | 2019-11-04 16:55 | ED.VISSUMM ---
- ER Visit Summary Date of Service: 11/04/19 Chief Complaint: Cough History of Present Illness: The patient is a [address] Polk and Dr. Fan. She is a G5, P4 at 9 weeks of . States that she was exposed to a coworker last week who had coronavirus. She reports that she is had a cough for the past week as well. She denies any fever. She has had chills. She reports she has had mild shortness of breath. She has not been wheezing. Her cough is nonproductive. She reports that she is been nauseated and vomited 8 times today. She reports that she had diarrhea 5 times a day for the past week. She complains of diffuse myalgias and a headache that is 6 out of 10 in severity. Physical Examination: Vitals: Stable. Afebrile. General: Well-nourished and well-developed. Head: Normocephalic atraumatic. Neck: Supple, no lymphadenopathy. No JVD. Nontender. Cardiovascular: Regular rate and rhythm. No murmurs. Respiratory: No respiratory distress. Clear to auscultation bilaterally. Abdominal: Soft, nontender, nondistended, normal bowel sounds. No guarding, rebound, or peritoneal signs. Back: Nontender. Extremities: Nontender, no edema. Skin: Normal color, no rash. Neurologic: Alert and oriented ?3. Cranial nerves II through XII are intact. Normal strength and sensation. Psych: Normal affect. Test Results: CBC shows a white count of 11.2 and 7 neutrophils 71. Chem-7 shows a creatinine 0.5. UA is normal. Chest x-ray shows no acute disease. Emergency Department Course and Treatment: A COVID test was sent. It is still pending. The patient is resting comfortably does not hypoxic. We were unable to obtain heart tones. Treatment Plan: Discussed the patient that she may have COVID. She is instructed to quarantine herself for the next week. She was instructed on symptomatic care. Follow-up with her primary care physician in 10 to 14 days if not improving. Follow-up with Dr. Fan as previously scheduled. Return to the emergency department for any worsening symptoms. Disposition: To home in improved and stable condition. Impression: 1. URI. 2. Vomiting/diarrhea. 3. Possible COVID-19 infection. 4. First trimester . This note was generated with [employer] dictation software. It may contain incorrect words, spelling, and punctuation that were not noted in review of the chart prior to signing ED Disposition - Plan for ED Patient: Disposition: Home or Assisted Living Instructions: ED Upper Resp Infec No Abx Tx Prescriptions: Ondansetron [Zofran Odt] 4 mg PO Q8H PRN PRN #10 tab PRN Reason: Nausea Prescription Printed Referrals: Jacklyn Polk MD [Primary Care Provider] - 10-14 Days if not better
[2019-11-04 17:07] VITALS: BP 124/71; PULSE 100; RESP 16; TEMP 36.3; O2SAT 99
== END 2019-11-04 17:08 | disposition home or self-care (01) ==
LOC: ED 15:45
PROVIDERS: Emergency Provider Emergency Medicine; PCP Internal Medicine
DX: O99.511 Diseases of the respiratory system complicating pregnancy, first trimester (principal); J06.9 Acute upper respiratory infection, unspecified; O21.9 Vomiting of pregnancy, unspecified; O99.89 Other specified diseases and conditions complicating pregnancy, childbirth and the puerperium; R19.7 Diarrhea, unspecified; O99.331 Smoking (tobacco) complicating pregnancy, first trimester; Z3A.09 9 weeks gestation of pregnancy; Z20.828 Contact with and (suspected) exposure to other viral communicable diseases
CPT/HCPCS: 71045; 80048; 81001; 85025; 87635; 96361; 96374; 99284; J7030; J2405; U0003

== ENCOUNTER 2019-12-30 10:27 | Emergency (ER) | payer MEDICAID, SELFPAY ==
[2019-12-30 10:28] VITALS: BP 121/77; PULSE 121; PULSE 125; RESP 22; RESP 24; TEMP 36.2; O2SAT 97; O2SAT 98; BMI 25.3
[2019-12-30 10:33] VITALS: BP 121/77; PULSE 112; RESP 22; TEMP 36.2; O2SAT 96
--- NOTE | 2019-12-30 10:54 | CT_ITS ---
STUDY: CTA CHEST REASON FOR EXAM: Female, 29 years old. COUGH/SOB X 1 WK, PT 17 WKS , ABD SHIELDED RADIATION DOSAGE (If Supplied By Facility): CTDIvol = ( 10.33 ) mGy, DLP = ( 288.12 ) mGycm TECHNIQUE: The examination was performed with the intravenous administration of 100ml isovue 370. Post-processing of the angiographic images was performed, with multiplanar reformation and 3D reconstruction. Individualized dose optimization techniques were used for this CT. COMPARISON: None. FINDINGS: Normal enhancement of the main pulmonary artery and right and left pulmonary arteries. Normal enhancement of the bilateral peripheral pulmonary arteries. There is no demonstrated pulmonary embolism. Normal thoracic aorta and visualized great vessels. There is no demonstrated aortic dissection. Normal heart and pericardium. Normal mediastinum. Normal hilar regions. Normal visualized trachea and bronchi. The lungs are well expanded. Normal pulmonary parenchyma. Normal pleura. Normal chest wall structures. Normal osseous structures. Normal visualized upper abdomen. CT/CTA Chest W/WO Contrast IMPRESSION: Normal CTA chest examination, without a demonstrated pulmonary embolism or arterial dissection. Electronically Signed: Luis Munoz, at 13:11 EDT Tel , Service support ,
--- NOTE | 2019-12-30 10:55 | EKG12_ITS ---
Test Reason : Blood Pressure : / mmHG Vent. Rate : 082 BPM Atrial Rate : 082 BPM P-R Int : 144 ms QRS Dur : 086 ms QT Int : 346 ms P-R-T Axes : 060 083 017 degrees QTc Int : 404 ms Normal sinus rhythm Septal infarct , age undetermined Abnormal ECG Confirmed by YESENIA GAMA, INÉS ([id number]), rewrite editor ZOIE ANNE ([id number]) on 01/07/2020 11:13:44 A M Referred By: GANESH Confirmed By:BONI PATTERSON MD
--- NOTE | 2019-12-30 10:57 | NURSING ---
NO OLD EKGS
[2019-12-30 11:41] VITALS: PULSE 88; RESP 20
[2019-12-30] MEDS: Albuterol 2.5 MG/3 ML VIAL.NEB. INHALATION (11:41)
--- NOTE | 2019-12-30 11:55 | ED.DCSUM_ITS ---
- ER Visit Summary Date of Service: 12/30/19 Chief Complaint: Cough, shortness of breath History of Present Illness: The patient is a 29 F presenting with cough, shortness of breath. Patient states this started approximately 2 weeks ago. She has had a productive cough. She denies fever. She has a history of asthma but states she has not been wheezing. She is 17 weeks . She is G5, P4. She denies any vaginal bleeding or abdominal pain. She did recently have a car ride to [place]. No other PE/DVT risk factors. Physical Examination: Vitals are stable. Patient is afebrile. Alert no acute distress. HEENT exam is unremarkable. TM normal bilaterally Neck is supple. Lungs are clear and equal bilaterally. No wheezing Heart is regular rate and rhythm. Abdomen is soft nontender nondistended. Extremities are unremarkable. Skin is warm and dry. Remainder of exam is unremarkable. Emergency Department Course and Treatment: EKG is sinus rhythm rate of 82 with no acute ischemic changes. CTA chest was obtained and shows Normal CTA chest examination, without a demonstrated pulmonary embolism or arterial dissection. 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 Her CTA results came back normal. I called her and discussed this over the phone with her. 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 Advised return to ED for any worsening complaints. Disposition: Discharge home Impression: Cough This note was generated with [employer] dictation software. It may contain incorrect words, spelling, and punctuation that were not noted in review of the chart prior to signing ED Disposition - Plan for ED Patient: Referrals: Jacklyn Polk MD [Primary Care Provider] -
--- NOTE | 2019-12-30 12:48 | ED.RN ---
PT STATES SHE HAS TO GO PICK A CHILD UP AND NEEDS TO LEAVE. DR. ADKINS AWARE. DR. ADKINS DISCUSSED WITH PATIENT. PATIENT LEFT PRIOR TO NURSE ENTERING ROOM.
== END 2019-12-30 12:55 | disposition home or self-care (01) ==
LOC: ED 11:21
PROVIDERS: Emergency Provider Emergency Medicine; PCP Internal Medicine
DX: O99.512 Diseases of the respiratory system complicating pregnancy, second trimester (principal); R05 Cough; O99.332 Smoking (tobacco) complicating pregnancy, second trimester; Z3A.17 17 weeks gestation of pregnancy
CPT/HCPCS: 71275; 93005; 94640; 99283; Q9967; A4216

== ENCOUNTER 2020-05-07 13:03 | Emergency (ER) | payer MEDICAID, SELFPAY ==
[2020-04-25 16:00] VITALS: BMI 29.0
[2020-05-07 13:05] VITALS: BP 111/81; PULSE 114; RESP 20; TEMP 36.4; O2SAT 98; BMI 32.2
--- NOTE | 2020-05-07 13:30 | ED.DCSUM_ITS ---
History of Present Illness Chief Complaint: Shortness of Breath Informant: Patient Narrative: 29-year-old female currently 35 weeks gestation presenting with fatigue, myalgias, cough, mild shortness of breath. She states this is about day 8 or day 9 of her symptoms. She has not been tested for Covid recently. Patient is unsure if she had a fever. She denies change in taste or smell. Patient was to see her CONTENT PRODUCER today however given her symptoms they sent her to the urgent care. Urgent care sent her to the emergency room because they said they could not help her. It sounds like the concern was her heart rate being a little bit elevated. She denies chest pain except for a painful cough. She also has sneezing. She states she has a history of asthma but has not been wheezing. - Past Medical History (1) Anxiety Status: Chronic (2) Asthma Status: Chronic (3) Migraine Status: Chronic Past Medical History - Allergies and Home Meds Allergies/Adverse Reactions: Allergies adhesive tape Allergy (Verified 05/07/20 13:08) Rash latex Allergy (Verified 05/07/20 13:08) Rash Primary Care Physician: Jacklyn Polk MD [Primary Care Provider] - Prior records reviewed: Yes Past Medical History: - - Reviewed in problem list Lives: Spouse/ Significant Other Smoking Status: Light Smoker (<10/day) Alcohol: None Drugs: None Review of Systems General: Reports: Chills, Fever, Malaise. Denies: Sweats Eyes: Denies: Visual changes - bilaterally, Diplopia ENT: Reports: Rhinorrhea, Sore throat Cardiovascular: Denies: Chest pain, Palpitations Respiratory: Reports: Dyspnea, Cough, Dyspnea on exertion. Denies: Sputum Gastrointestinal: Denies: Abdominal pain, Nausea, Vomiting Genitourinary: Reports: - - No vaginal discharge, loss of blood or fluid.. Denies: Dysuria, Hematuria Musculoskeletal: Reports: Myalgias. Denies: Arthralgias, Neck pain Skin: Denies: Rash, Abscess Neurological: Denies: Headache, Weakness, Parasthesia Physical Exam Vital Signs/Narrative: Vital Signs Temp Pulse Resp BP Pulse Ox 05/07/20 13:05 97.6 F L 114 H 20 H 111/81 H 98 General: Well nourished, No Acute Distress Head: Normocephalic, Atraumatic Eyes: Perrl, EOMI ENT: Moist mucous membranes, Nasal congestion Cardiovascular: Regular rhythm, Tachycardia. Negative for: No murmurs Respiratory: No distress, CTA bilaterally. Negative for: Chest nontender, Wheezing, Diminished Abdomen: Nontender, - - Gravid Extremities: Nontender, No edema. Negative for: Calf Tenderness Skin: Normal color, No rash. Negative for: Cyanosis Neurological: Alert, Oriented x3 Psychological: Normal affect, Normal Mood Diagnostic/Tx/Re-eval - Medical Decision Making 29-year-old female presenting at 35 weeks gestation with concern for Covid?19. Patient has painful cough, and myalgias, fatigue. Patient was offered chest x- ray and Covid?19 test. We also did discuss differential of possibility of blood clot given she may have Covid?19 as well as she is 35 weeks in gestation. Patient was offered lab work with the possibility of needing a CTA given possibility of PE. She declines this as she is concerned for doing this in . She request just the Covid?19 testing. Patient will be tested, but given that she does not need to be admitted she will have the PCR send out. She was given strict return precautions if she has any worsening of shortness of breath or having chest pain that is not just a painful cough. Today she is slightly tachycardic however she is not having what sounds like cardiac chest pain. Her lungs are clear to auscultation. She is not tachypneic. Patient was given quarantine information for home. Impression: 1. Upper respiratory tract infection 2. Tachycardia ED Disposition - Plan for ED Patient: Disposition: Home or Assisted Living Instructions: Coronavirus Disease 2019 (COVID-19): Overview, Coronavirus Disease 2019 (COVID-19): Caring for Yourself or Others, Preventing the Spread of Infection Understanding Isolation Procedures Referrals: Jacklyn Polk MD [Primary Care Provider] -
[2020-05-07 13:47] VITALS: BP 111/81; PULSE 114; RESP 20; TEMP 36.4; O2SAT 98
[2020-05-07 13:51] VITALS: O2SAT 96
== END 2020-05-07 13:51 | disposition home or self-care (01) ==
LOC: ED 13:43
PROVIDERS: Emergency Provider Student in an Organized Health Care Education/Training Program; PCP Internal Medicine
DX: O99.513 Diseases of the respiratory system complicating pregnancy, third trimester (principal); J06.9 Acute upper respiratory infection, unspecified; R00.0 Tachycardia, unspecified; O99.333 Smoking (tobacco) complicating pregnancy, third trimester; F17.200 Nicotine dependence, unspecified, uncomplicated; Z3A.35 35 weeks gestation of pregnancy
CPT/HCPCS: 87635; 99282; U0003

== ENCOUNTER → 2020-05-30 09:24 | Outpatient (CLI) | payer MEDICAID, SELFPAY ==
[2020-05-07 13:05] VITALS: BMI 32.2
== END ==
PROVIDERS: PCP Internal Medicine; Referring Provider Obstetrics & Gynecology; Visit Provider Obstetrics & Gynecology
DX: Z03.818 Encounter for observation for suspected exposure to other biological agents ruled out (principal)
CPT/HCPCS: 87635; C9803; U0003

== ENCOUNTER 2020-05-31 12:10 | Inpatient (IN) | payer MEDICAID, SELFPAY ==
[2020-05-31] VITALS (30 sets, daily range): BP systolic 86–127; BP diastolic 42–72; PULSE 61–229; RESP 16; TEMP 36.4–37.2; O2SAT 82–100; BMI 33.5
[2020-05-31] MEDS: Lactated Ringers 1,000 ML 200 ML IV (12:25)
[2020-05-31 12:29] LABS: ROM Internal Control Test YES-OK TO RESULT pt. (Internal QC); ROM Patient Test Negative (Negative)
[2020-05-31 12:40] LABS: Amphetamine Urine VISTA NEGATIVE (<1000 ng/mL); Barbiturate Urine VISTA NEGATIVE (< 200 ng/mL); Benzodiazepine Urine VISTA NEGATIVE (< 200 ng/mL); Cocaine Urine VISTA NEGATIVE (< 300 ng/mL); Ecstacy Urine VISTA NEGATIVE (< 500 ng/mL); Methadone Urine VISTA NEGATIVE (< 300 ng/mL); PCP Urine VISTA NEGATIVE (< 25 ng/mL); THC Urine VISTA NEGATIVE (< 50 ng/mL); Vista UDS pH Range 5
[2020-05-31] MEDS: Lactated Ringers 500 ML 999 ML IV (12:43)
[2020-05-31 12:51] LABS: Absolute Lymphocyte Count 2.15 X10^3/uL (0.83-4.51); Absolute Neutrophil Count 9.4 X10^3/uL (2.0-7.7); Basophil# 0.06 X10^3/uL; Basophil% 0.5 % (0-1); Eosinophil# 0.27 X10^3/uL; Eosinophils% 2.1 % (0-5); Hematocrit 35.3 % (37-47); Hemoglobin 12.6 g/dL (12.0-15.0); Lymphocyte # 2.15 X10^3/ul (4.0); Lymphocyte % 16.6 % (19-41); Mean Corp Hgb Conc 35.7 g/dL (32-36); Mean Corpuscular Hgb 33.9 pg (27.0-32.0); Mean Corpuscular Volume 94.9 fL (81-99); Monocyte# 0.94 X10^3/uL; Monocyte% 7.2 % (0-10); NRBC Flagged by Analyzer 0 % (0-5); Neutrophil # 9.36 X10^3/uL (2.7-7.7); Neutrophil % 72.1 % (47-70); Platelet Count 241 K/mm3 (150-450); RBC Distribution Width CV 13.3 % (11.6-14.6); RBC Distribution Width SD 46.5 fl (35.1-43.9); Red Blood Count 3.72 M/mm3 (4.2-5.4)
[2020-05-31 12:56] LABS: BUP Internal Control LINE = VALID (VALID); Buprenorphine Drug Screen Negative (<10 ng/mL)
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
[2020-05-31 13:41] LABS: Alcohol, Blood (Medical)-Serum < 3.0 mg/dL
[2020-05-31] MEDS: fentaNYL-bupivacaine (epidural) 100 ML BAG EPIDURAL (14:08)
[2020-05-31] MEDS: Oxytocin 30 units/NS 500 ml 30 UNITS/500 ML IV.SOLN 334 UNITS IV (15:03)
--- NOTE | 2020-05-31 15:09 | PCM.OPRPT ---
Problem List (1) Thin meconium stained amniotic fluid Status: Acute (2) Vaginal delivery Status: Acute Vaginal Delivery Maternal Presentation: Active Labor Amniotic Membrane Rupture Type: Artificial Amniotic Fluid Description: Moderate meconium Final EMIGDIO: 06/09/20 Gestational age: 38 Weeks and 5 Days Date of Procedure: 05/31/20 Pre-Operative Diagnosis: Active Labor Post-Operative Diagnosis: Vaginal Delivery, Meconium Stained fluid Surgery/ Procedure Performed: Spontaneous Vaginal Delivery Type of Anesthesia: Epidural Description of Procedure: Progressed to complete. Epidural for pain management and comfortable. and respiratory called to delivery for meconium stained fluid. of viable male infant over intact perineum with time 1458. APGARS 6,9,9. Infant head delivered and patient with limited pushing effort. Head flat and pushing efforts resumed and infant shoulder forthcoming. Delivered and placed on maternal abdomen. Mouth and nares suctioned. Cord clamped and cut, no respiratory effort and poor tone. taken to warm with awaiting nursery staff and corporate representative. PPV initiated. Pitocin started for active 3rd stage management. Placenta delivered with expression, intact, 3 vessel cord. Perineum inspected and intact. Fundus firm. Vaginal sweep completed by me. EBL 500ml. Mom and baby stable. notified of delivery. Presentation: Vertex Placental Delivery Description: Spontaneous Placenta Disposition: [facility] Cord Vessel Description: 3 Vessels Cord Gases drawn per routine: ABG, VBG Cord Entanglement: None Estimated Blood Loss: 500 ml Infant A gender: Male (1 minute): 6 (5 minute): 9 - 10 minutes-9 Episiotomy Description: None Laceration: None Medications given after delivery: IV Pitocin
[2020-05-31] MEDS: 0.9% Saline Lock 10 ML Syringe IV (17:42)
--- NOTE | 2020-05-31 19:15 | NURSING ---
nursing and joel mccord voices concerns about mom caring for baby due to difficulty with coping mechanisms. Pt voices and showed several times during placement of epidural and delivery that her anxiety kicks in when multiple things are happening around her. Joel mccord ask nursing to make a note to Propeller Engineer about pt coping mechanism when it comes to caring for her baby after discharge and at home.
[2020-05-31] MEDS: Acetaminophen 500 MG Tablet 1000 MG PO (19:41)
[2020-05-31] MEDS: Prenatal Vits Tablet 1 TABLET PO (22:22)
[2020-05-31] MEDS: lamoTRIgine 100 MG Tablet 50 MG PO (22:22)
[2020-05-31] MEDS: Citalopram 10 MG Tablet PO (22:23)
[2020-05-31] MEDS: Loratadine 10 MG Tablet PO (22:42)
[2020-05-31] MEDS: Ibuprofen 600 MG Tablet PO (22:42)
[2020-06-01 00:15] VITALS: BP 110/64; PULSE 62; RESP 16; TEMP 36.6; O2SAT 96
[2020-06-01 05:15] VITALS: BP 114/61; PULSE 84; RESP 16; TEMP 36.1; O2SAT 96
[2020-06-01 05:35] LABS: Hematocrit 33.9 % (37-47); Hemoglobin 11.8 g/dL (12.0-15.0); Mean Corp Hgb Conc 34.8 g/dL (32-36); Mean Corpuscular Hgb 33.7 pg (27.0-32.0); Mean Corpuscular Volume 96.9 fL (81-99); Mean Platelet Vol. 10.1 fl (6.2-12.0); Platelet Count 233 K/mm3 (150-450); RBC Distribution Width CV 13.1 % (11.6-14.6); RBC Distribution Width SD 45.7 fl (35.1-43.9); White Blood Count 14.8 K/mm3 (4.4-11.0)
[2020-06-01] MEDS: Acetaminophen 500 MG Tablet 1000 MG PO ×2 (06:27→20:49)
[2020-06-01 08:50] VITALS: BP 128/83; PULSE 68; RESP 18; TEMP 36.1; O2SAT 98
[2020-06-01] MEDS: Ibuprofen 600 MG Tablet PO ×2 (09:01→17:27)
--- NOTE | 2020-06-01 09:01 | PN.OBGYN_ITS ---
Patient Problems: Active and Suspected Problems (Last Reviewed 04/25/20 @ 16:00 by Sheila Hood) Drug use affecting (Acute) Active labor at term (Acute) Positive GBS test (Acute) Chlamydia infection affecting (Acute) Anemia affecting (Acute) History of asthma (Acute) History of pre-eclampsia (Acute) History of hemorrhage (Acute) Tobacco use during (Acute) Thin meconium stained amniotic fluid (Acute) Vaginal delivery (Acute) Subjective: Patient is anxious abort social work visit today - Physical Exam Vitals/I&O's: Vital Signs Temp Pulse Resp BP Pulse Ox 96.9 F L 68 18 128/83 H 98 06/01/20 08:50 06/01/20 08:50 06/01/20 08:50 06/01/20 08:50 06/01/20 08:50 Oxygen Delivery Method Room Air Weight: 183 lb 3.266 oz Body Mass Index (BMI) 33.5 Intake and Output for Last 24 Hours 05/30/20 05/31/20 06/01/20 23:59 23:59 23:59 Intake Total 2095.95 / 2095.95 Output Total 850 / 850 Balance 1245.95 / 1245.95 General: Alert, Oriented x3 Abdomen: Soft - ff mid & below umb, Non Tender, Non-Distended Extremities: No Calf Tenderness Neurological: Cranial nerves II-XII grossly intact Microbiology Past 72 Hours 05/31/20 13:05 Mucosa - Nose SARS-CoV-2 Antigen (Rapid) - Final Laboratory Results 05/31/20 11:55: Urine Opiates Screen NEGATIVE, Urine Methadone Screen NEGATIVE, Ur Barbiturates Screen NEGATIVE, Ur Phencyclidine Scrn NEGATIVE, Ur Amphetamines Screen NEGATIVE, U Methamphetamin-MDMA NEGATIVE, U Benzodiazepines Scrn NEGATIVE, Urine Cocaine Screen NEGATIVE, U Cannabinoids Screen NEGATIVE, Ur Drug Screen Comment 05/31/20 11:55: Vag Amniotic Fld Detect Negative 05/31/20 11:55: Miscellaneous Test Pending 05/31/20 11:55: Ur Buprenorphine Scrn Negative, Ur Drug Screen Comment 05/31/20 12:25: Ethyl Alcohol < 3.0 05/31/20 12:25: WBC 13.0 H, RBC 3.72 L, Hgb 12.6, Hct 35.3 L, MCV 94.9, MCH 33.9 H, MCHC 35.7, RDW Std Deviation 46.5 H, RDW Coeff of Lambert 13.3, Plt Count 241, MPV 10.0, Immature Gran % (Auto) 1.500 H, Neut % (Auto) 72.1 H, Lymph % (Auto) 16.6 L, [place] % (Auto) 7.2, Eos % (Auto) 2.1, Baso % (Auto) 0.5, Absolute Neuts (auto) 9.4 H, Absolute Lymphs (auto) 2.15, Nucleated RBC % 0 05/31/20 12:25: Blood Type A NEGATIVE, Antibody Screen NEGATIVE 05/31/20 18:48: Screen NEGATIVE, Baby's Blood Type O POSITIVE, Baby's DULCE NEGATIVE 06/01/20 05:20: WBC 14.8 H, RBC 3.50 L, Hgb 11.8 L, Hct 33.9 L, MCV 96.9, MCH 33.7 H, MCHC 34.8, RDW Std Deviation 45.7 H, RDW Coeff of Lambert 13.1, Plt Count 233, MPV 10.1 Current Medications Acetaminophen (Acetaminophen 500 Mg Tablet) 1,000 mg PO Q8H PRN PRN PRN Reason: Pain Score 1-10 Last Admin: 06/01/20 06:27 Dose: 1,000 mg Documented by: Bisacodyl (Bisacodyl 10 Mg Suppository) 10 mg RECTAL UD PRN PRN Reason: If no BM Citalopram Hydrobromide (Citalopram 10 Mg Tablet) 10 mg PO QHS [facility] Last Admin: 05/31/20 22:23 Dose: 10 mg Documented by: Dibucaine (Dibucaine 30 Gm Tube) 1 applic TOPICAL TID PRN PRN; Protocol PRN Reason: Discomfort Hydrocortisone (Hydrocortisone 2.5% Crm) 1 applic TOPICAL TID PRN PRN; Protocol PRN Reason: Discomfort Ibuprofen (Ibuprofen 600 Mg Tablet) 600 mg PO Q6H PRN PRN PRN Reason: Pain Score 1-10 Last Admin: 05/31/20 22:42 Dose: 600 mg Documented by: Lamotrigine ([facility] 100 Mg Tablet) [facility] Last Admin: 05/31/20 22:22 Dose: 50 mg Documented by: Loratadine (Loratadine 10 Mg Tablet) 10 mg PO QHS [facility] Last Admin: 05/31/20 22:42 Dose: 10 mg Documented by: Methylergonovine Maleate (Methylergonovine 0.2 Mg/Ml Ampul) 0.2 mg IM X1 PRN PRN Reason: Excess bleeding/uterine atony Ondansetron HCl (Ondansetron 4 Mg/2 Ml Vial) 4 mg IV Q4H PRN PRN PRN Reason: Nausea Multivit/Folic Acid/Iron ( Vits Tablet) 1 tablet PO QHS [facility] Last Admin: 05/31/20 22:22 Dose: 1 tablet Documented by: Senna/Docusate Sodium (Senna/Docusate Sodium 1 Tablet) 1 - 2 tablet PO DAILY PRN PRN PRN Reason: Constipation Simethicone (Simethicone 80 Mg Tablet) 80 mg PO PCHS PRN PRN Reason: Indigestion/Stomach pain Sodium Chloride (0.9% Saline Lock 10 Ml Syringe) 5 - 15 ml IV UD PRN PRN Reason: SALINE FLUSH Last Admin: 05/31/20 17:42 Dose: 10 ml Documented by: Medical Necessity - Tobacco Use Smoking Status: Current every day smoker Assessment/Plan All Active Problems (Last Reviewed 04/25/20 @ 16:00 by Sheila Hood) Drug use affecting (Acute) Active labor at term (Acute) Positive GBS test (Acute) Chlamydia infection affecting (Acute) Anemia affecting (Acute) History of asthma (Acute) History of pre-eclampsia (Acute) History of hemorrhage (Acute) Tobacco use during (Acute) Thin meconium stained amniotic fluid (Acute) Vaginal delivery (Acute) Upper respiratory infection (Acute) PPD#1 Routine care H/o drug use - social work consult today Mood - continue celexa
--- NOTE | 2020-06-01 11:24 | NURSING ---
At 0740, this RN and Ana RN, received report. Pt was holding baby. At 0850, this RN and Ana RN entered room for assessment and informed pt of importance of assessment for her and her baby including the ABI score. Pt states, Are you fucking kidding me right now. I just got him to sleep and I haven't slept all night. Now I will have to feed him again and do the whole thing over. This RN apologized and reiterated importance of assessment and wanted to support her, understanding that she was tired. Pt then jumped out of bed and grabbed the baby from the crib and carried that baby to the bathroom to flush the toilet, stating I didn't even want to flush the toilet because I didn't want to wake him. Pt then returned to bed while holding the appropriately swaddled baby. Dr. Fan then entered the room to also assess the pt. Patient became tearful while talking to Dr. Fan and asked when the social insurance adviser would be in to talk with her because she wanted her support person present to support her. We discussed that we would make sure her support person was there while social insurance adviser talking with her. Emotional support given by physician and RNs. Pt then appeared to relax and remained tearful. Pt rambling about how she was trying to be honest this time around because she wasn't honest last time and she was here forever and ended up relapsing last time but tried not to this time. Pt stating multiple times, I just don't want to lose my baby this time. Pt states, this is my last one. Pt encouraged to breastfeed baby. Pt put baby to breast while this RN in room. Pt looking at baby and smiling. Edith shoddy mill worker informed of pt request for a support person prior to visit, Edith agreeable. Informed pt of plan, pt then stated, No, it's ok if Edith talked to me without my support person, because I know her. I just want my support when CSB is here. At 1045 this RN and Ana entered room. Pt had called and requested nurses to take baby for a brief time while she left the unit. Pt was holding baby at that time. Pt states, I just don't want to put him down. Pt states her support person has a sick child at this time and requesting a different support person, [id number], since she will be here for 5-7 days and I don't think I can do it with little sleep. Pt informed that the hospital is not allowing support person changes at this time due to Covid but that this RN would talk with management regarding the situation. Dominique Coker, assistant merchandise manager, informed of situation and pt request. Instructed to talk with Edith shoddy mill worker. Edith informed of situation and pt request. Edith states she will talk with pt and informed RN. At 1120 this RN and Ana RN in room after pt called and states she had returned to room and ready for her baby. Informed pt of plan with Edith to talk with her regarding support situation. Pt verbalized understanding. Pt smiling and talking to baby when RNs returned baby to pt. Informed that baby did not cry and remained quiet alert while in nursery in crib. This RN encouraged pt to rest while baby is quiet in the crib. Pt agreeable to plan.
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
[2020-06-01 14:00] VITALS: BP 113/75; PULSE 84; RESP 18; TEMP 36.2; O2SAT 98
--- NOTE | 2020-06-01 14:45 | CASEMGMT ---
Social Work Labor and Delivery Unit Called [facility] ([facility]) and spoke with Laisha Muller in the intake department, , extension [phone]. Referral for substance exposed in utero, maternal and drug screen results as well as mother of baby (MOB) endorsement of substance use in . Brief maternal and infant histories provided, including other risk factors such as maternal mental health history. Coarse of hospital stay thus far for MOB and baby reviewed as well. [facility] to call this typewriter ribbon winder on 06.02.2020 with status of referral. Spoke with MOB again who wanted this typewriter ribbon winder to speak with disaster recovery manager Surekha Reid through [facility]. MOB handed this typewriter ribbon winder a phone and Surekha reported that working on arranging an alternate support person to come and be with MOB. Surekha asked for a release to [facility] be signed and faxed to said agency. Provided Surekha with this typewriter ribbon winder's number to call with information. MOB signed releases to [facility] and to [facility]. Faxed release to [facility] at [phone]. Plan: Continue to follow and assist as needs arise. Support to MOB as indicated. Collaboration with [facility] on safe disposition for baby. -JANNET Lee, PARTS ROOM CLERK
[2020-06-01 17:20] VITALS: BP 121/61; PULSE 62; RESP 18; TEMP 36.2; O2SAT 96
[2020-06-01 20:10] VITALS: BP 128/72; PULSE 65; RESP 16; TEMP 36.4; O2SAT 95
[2020-06-01] MEDS: Prenatal Vits Tablet 1 TABLET PO (22:26)
[2020-06-01] MEDS: lamoTRIgine 100 MG Tablet 50 MG PO (22:27)
[2020-06-01] MEDS: Loratadine 10 MG Tablet PO (22:27)
[2020-06-01] MEDS: Citalopram 10 MG Tablet PO (22:27)
[2020-06-02 02:30] VITALS: BP 100/57; PULSE 69; RESP 18; TEMP 36.3; O2SAT 97
[2020-06-02] MEDS: Ibuprofen 600 MG Tablet PO (03:17)
--- NOTE | 2020-06-02 07:24 | NURSING ---
Patient required frequent reassurance by this RN throughout the night, especially when feeding her formula. At one point in the night, patient was tearful and said that she feels like she's given up because she gave her formula. Provider reassurance to mother. Vanessa, support person, present throughout the night. Vanessa was helpful and encouraged Naty to sleep. Patient went outside multiple times to smoke.
--- NOTE | 2020-06-02 08:24 | PCM.PN.OB ---
Patient Problems: Active and Suspected Problems (Last Reviewed 04/25/20 @ 16:00 by Sheila Hood) Drug use affecting (Acute) Active labor at term (Acute) Positive GBS test (Acute) Chlamydia infection affecting (Acute) Anemia affecting (Acute) History of asthma (Acute) History of pre-eclampsia (Acute) History of hemorrhage (Acute) Tobacco use during (Acute) Thin meconium stained amniotic fluid (Acute) Vaginal delivery (Acute) Subjective: Patient seen at bedside. Skin to skin with . Feeling good. Breast feeding but upset because had to give infant bottle last night due to him crying. Lochia normal. Ambulating and voiding without difficulty. Pain controlled. Infant ABI scoring last night was 9 but 3 this AM. Patient seen by social work and is awaiting CSB. - Physical Exam Vitals/I&O's: Vital Signs Temp Pulse Resp BP Pulse Ox 97.4 F L 69 18 100/57 L 97 06/02/20 02:30 06/02/20 02:30 06/02/20 02:30 06/02/20 02:30 06/02/20 02:30 Oxygen Delivery Method Room Air Weight: 183 lb 3.266 oz Body Mass Index (BMI) 33.5 Intake and Output for Last 24 Hours 05/31/20 06/01/20 06/02/20 23:59 23:59 23:59 Intake Total 2095.95 / 2095.95 Output Total 850 / 850 Balance 1245.95 / 1245.95 General: Alert, Oriented x3, Cooperative, No apparent distress HEENT: Normocephalic Lungs: Normal air movement Cardiovascular: Regular rate Abdomen: Soft, Non Tender Extremities: Capillary Refill Less than 3 Seconds Neurological: Cranial nerves II-XII grossly intact Psych/Mental Status: Normal Affect, Appropriate Microbiology Past 72 Hours 05/31/20 13:05 Mucosa - Nose SARS-CoV-2 Antigen (Rapid) - Final Current Medications Acetaminophen (Acetaminophen 500 Mg Tablet) 1,000 mg PO Q8H PRN PRN PRN Reason: Pain Score 1-10 Last Admin: 06/01/20 20:49 Dose: 1,000 mg Documented by: Bisacodyl (Bisacodyl 10 Mg Suppository) 10 mg RECTAL UD PRN PRN Reason: If no BM Citalopram Hydrobromide ([facility] 10 Mg Tablet) [facility] Last Admin: 06/01/20 22:27 Dose: 10 mg Documented by: Dibucaine (Dibucaine 30 Gm Tube) 1 applic TOPICAL TID PRN PRN; Protocol PRN Reason: Discomfort Hydrocortisone (Hydrocortisone 2.5% Crm) 1 applic TOPICAL TID PRN PRN; Protocol PRN Reason: Discomfort Ibuprofen (Ibuprofen 600 Mg Tablet) 600 mg PO Q6H PRN PRN PRN Reason: Pain Score 1-10 Last Admin: 06/02/20 03:17 Dose: 600 mg Documented by: Lamotrigine (Lamotrigine 100 Mg Tablet) [facility] Last Admin: 06/01/20 22:27 Dose: 50 mg Documented by: Loratadine (Loratadine 10 Mg Tablet) [facility] Last Admin: 06/01/20 22:27 Dose: 10 mg Documented by: Methylergonovine Maleate (Methylergonovine 0.2 Mg/Ml Ampul) 0.2 mg IM X1 PRN PRN Reason: Excess bleeding/uterine atony Ondansetron HCl (Ondansetron 4 Mg/2 Ml Vial) 4 mg IV Q4H PRN PRN PRN Reason: Nausea Multivit/Folic Acid/Iron ( Vits Tablet) [facility] Last Admin: 06/01/20 22:26 Dose: 1 tablet Documented by: Senna/Docusate Sodium (Senna/Docusate Sodium 1 Tablet) 1 - 2 tablet PO DAILY PRN PRN PRN Reason: Constipation Simethicone (Simethicone 80 Mg Tablet) 80 mg PO HS PRN PRN Reason: Indigestion/Stomach pain Sodium Chloride (0.9% Saline Lock 10 Ml Syringe) 5 - 15 ml IV UD PRN PRN Reason: SALINE FLUSH Last Admin: 05/31/20 17:42 Dose: 10 ml Documented by: Medical Necessity - Tobacco Use Smoking Status: Current every day smoker Assessment/Plan All Active Problems (Last Reviewed 04/25/20 @ 16:00 by Sheila Hood) Drug use affecting (Acute) Active labor at term (Acute) Positive GBS test (Acute) Chlamydia infection affecting (Acute) Anemia affecting (Acute) History of asthma (Acute) History of pre-eclampsia (Acute) History of hemorrhage (Acute) Tobacco use during (Acute) Thin meconium stained amniotic fluid (Acute) Vaginal delivery (Acute) Upper respiratory infection (Acute) PPD #2 intact Routine care support Discharge home/ hotel status while infant ABI Patient to follow up in office
--- NOTE | 2020-06-02 08:29 | DCINST_ITS ---
Discharge Diet: No Restrictions May resume sexual activity in: 6-8 weeks Weight Bearing Status: Weight bearing as tolerated Additional Instructions: If you experience any of the following, contact your healthcare provider. * Bleeding that soaks a pad every hour for 2 hours * Fever 100.4 or higher * Unrelieved incision or abdominal pain * Swelling, redness, discharge or bleeding from your incision or episiotomy site * Your incision begins to separate * Problems urinating (including inability to urinate or burning while urinating). * Visual changes * Severe headache * Flu-like symptoms * Pain or redness in one of both of your breasts * Pain, warmth, tenderness or swelling in your legs, especially the calf area * Frequent nausea and vomiting * Symptoms of depression or anxiety If you experience any of the following, call 911 or go to the nearest Emergency Room. * Chest pain * Problems breathing * Seizure activity * Partial or complete paralysis of a body part, slurred speech, weakness or drooping of the face, or a sudden inability to walk or hold your balance Allergies/Adverse Reactions: Allergies adhesive tape Allergy (Mild, Verified 05/31/20 11:49) Rash latex Allergy (Mild, Verified 05/31/20 11:49) Rash shellfish derived Allergy (Verified 05/31/20 11:50) Anaphylaxis Medications to take at Discharge albuterol sulfate 90 mcg/actuation aerosol inhaler 1 - 2 puff INHALATION Q6H PRN #8.5 g 03/01/20 cetirizine 10 mg tablet 10 mg PO DAILY PRN #90 tab 03/01/20 famotidine 20 mg tablet 20 mg PO DAILY PRN #30 tab 04/25/20 hydrocortisone 2.5 % topical cream 1 applic TOPICAL BID PRN #30 g 04/25/20 Citalopram [Celexa] 10 mg PO DAILY 05/31/20 Lamictal 100 mg PO DAILY 05/31/20 When: 2 weeks virtual visit/ 6 weeks in office Primary Care Physician: Jacklyn Polk MD [Primary Care Provider] - Test Results: Test results from this visit will be discussed in further detail at your follow- up appointment, if applicable. Proposed Discharge Date: 06/02/20
[2020-06-02 08:30] VITALS: BP 114/78; PULSE 72; RESP 18; TEMP 36.3; O2SAT 96
[2020-06-02] MEDS: Acetaminophen 500 MG Tablet 1000 MG PO (08:41)
[2020-06-02 16:30] VITALS: BP 115/70; PULSE 65; RESP 16; TEMP 36.4
== END 2020-06-02 17:10 | disposition home or self-care (01) | DRG 560 ==
LOC: WPOUT 12:15 → WP 12:15
PROVIDERS: Admitting Provider Advanced Practice Midwife; PCP Internal Medicine; Referring Provider Advanced Practice Midwife; Visit Provider Advanced Practice Midwife
DX: O77.0 Labor and delivery complicated by meconium in amniotic fluid (principal); O98.82 Other maternal infectious and parasitic diseases complicating childbirth; B95.1 Streptococcus, group B, as the cause of diseases classified elsewhere; O99.334 Smoking (tobacco) complicating childbirth; F17.200 Nicotine dependence, unspecified, uncomplicated; O99.02 Anemia complicating childbirth; D64.9 Anemia, unspecified; F19.90 Other psychoactive substance use, unspecified, uncomplicated; O99.324 Drug use complicating childbirth; Z3A.38 38 weeks gestation of pregnancy; Z37.0 Single live birth
CPT/HCPCS: 59025; 59050; 80307; 82077; 84112; 85025; 85027; 85461; 86850; 86900; 86901; 87426; 87635; 90384; 99218; C9803; J7120; A4216; G0378; J2790; U0003

== ENCOUNTER 2020-08-03 06:02 | Day surgery (SDC) | payer MEDICAID, SELFPAY ==
[2020-05-31 11:39] VITALS: BMI 33.5
--- NOTE | 2020-07-31 13:38 | HP.PCM_ITS ---
- Problem List (1) Request for sterilization Status: Acute History and Physical Date of Admission: 08/03/20 DATE OF SERVICE: July 26, 2020 ? PROBLEM:?desires sterilization ? DIAGNOSIS:?desires sterilization ? SUBJECTIVE:?Patient is multiparous. She states she is 100% certain that she does not desire more children in the future.? ? PAST SURGICAL HISTORY:? PAST SURGICAL HISTORYExpand by Default History reviewed. No pertinent surgical history. ? PAST MEDICAL HISTORY:? PAST MEDICAL HISTORYExpand by Default PAST MEDICAL HISTORY Diagnosis Date ? Anemia ? ? Asthma ? ? Chlamydia 12/2019 ? Drug use affecting 09/21/2018 ? 03/17/20-Denies any use since 02/21 and in Outpatient treatment through [facility]. States she wants to remain sober. Corina Conteh APRN.CNM ?Pt with history of polysubstance abuse, does not have custody of her other children Most recently tested positive for subutex, cocaine 02/22 and did admit then to use on 02/21 Now in [facility] Aware she will have CSB case with this baby State ? History of hemorrhage, currently 09/21/2018 ? 01/04/20-No hemabate at delivery, history of asthma. Corina Conteh APRN.ALANNA ? History of pre-eclampsia in prior , currently ? ? Polysubstance abuse (HCC) ? ? hemorrhage ? ? Rh negative state in antepartum period ? ? Smoker ? ? SOCIAL HISTORY:? SOCIAL HISTORYExpand by Default Social History ? Tobacco Use ? Smoking status: Current Every Day Smoker ? ? Packs/day: 0.50 ? ? Types: Cigarettes ? Smokeless tobacco: Never Used Substance Use Topics ? Alcohol use: Not Currently ? ? Comment: sober since 09/11/2018 ? Drug use: Not Currently ? ? Types: Marijuana, Cocaine, Heroin, IV ? ALLERGIESExpand by Default ALLERGIES Allergen Reactions ? Shellfish Derived ?? Swelling, Shortness of Breath ? Latex ? Other: See Comments ? ? Mother has told patient she gets red and puffy when she is exposed to Latex ? ? Seasonal Allergies ? Other: See Comments ? Tylenol [Acetaminop* Rash, Shortness of Breath ? Current Outpatient Medications on File Prior to Visit l Medication Sig ? gabapentin (NEURONTIN) 300 mg capsule Take by mouth twice daily. Patient unsure of dosing ? Lactobacillus acidophilus (FLORAJEN) 460 mg (20 billion cell) cap Take 1 capsule by mouth once daily. ? medroxyPROGESTERone (DEPO-PROVERA) 150 mg/mL Inject 1 mL intramuscularly every 12 weeks. ? fluticasone (FLONASE) 50 mcg/actuation nasal spray use 2 (TWO) sprays IN EACH NOSTRIL DAILY ? hydrocortisone 2.5 % cream Apply to affected area twice daily. ? Food Supplement, Lactose-Free (ENSURE CLEAR) liqd Take 237 mL by mouth three times daily with meals. ? lamotrigine (LAMICTAL ORAL) Take by mouth. ? citalopram hydrobromide (CELEXA) 10 mg tablet Take 10 mg by mouth once daily. ? Jldspmks-Yf-Fwu-Fe-FA ( VITAMIN) tab Take 1 tablet by mouth once daily. ? MEDICATION, NON-DATABASE HAIR GLOW (hair vitamin) Current Facility-Administered Medications on File Prior to Visit Medication ? albuterol HFA 90 mcg/actuation 2 Puff (PROVENTIL HFA, VENTOLIN HFA) ? OBJECTIVE: ? VITALS:? BP 100/66 ? Pulse 64 ? Resp 16 ? Ht 5' 2 (1.575 m) ? Wt 178 lb 3.2 oz (80.8 kg) ? LMP ?(LMP Unknown) ? BMI 32.59 kg/m? ? HEENT: ?Normocephalic, atraumatic, Mucus membranes moist without lesions. ? NECK: ???Soft and Supple. ?No adenopathy , thyromegaly or bruits. ? SKIN: No lesions. ? CHEST: Clear to auscultation. ?No wheezes or rales. ?Good air exchange. ? HEART: Regular rate and rhythm ?No S3 or S4. ?No gallops or rubs. ? BACK: Nontender with no CVA tenderness. ? ABDOMEN: Soft, non-tender, non-distended, no masses, no hepatosplenomegaly. ? LOWER EXTREMITIES: There was no pitting edema, no palpable cords and no skin changes. ? ? ? ASSESSMENT:?Request for sterilization ? PLAN:?Discussed laparoscopic bilateral salpingectomy. She understands this is permanent and irreversible, and there is risk of regret. She is 100% certain that she desires permanent sterilization. She understands all other options for control.?The rationale for the proposed surgery was discussed in addition to risks, benefits, and alternatives. ?General pre- and post-operative care was reviewed. ?Questions were answered. ?After discussion, the patient indicated a desire to proceed with the planned surgery. ? Neelima Jacobsen,?DO
[2020-08-03] VITALS (7 sets, daily range): BP systolic 103–114; BP diastolic 71–103; PULSE 64–80; RESP 14–16; TEMP 36.3–36.5; O2SAT 96–100; BMI 32.5
--- NOTE | 2020-08-03 | FALS_PTH ---
PATIENT: JOSI REVELES LOC: [facility] [place] U#:[id number] AGE/SX: 29/F ROOM: RE08/03/[address]: Dr. Neelima Jacobsen DO : 1990 BED: DIS: 08/03/2020 SPEC #: [id number] RECD: 08/03/20 10:50 STATUS: CONNIE REQ #: [id number] JULIET: 08/03/20 00:[address]: Neelima aJcobsen DEPT: SURGICAL PATHOLOGY RECD BY: Benny Nam ENTERED: 08/03/20 10:50 SP TYPE: FALL TUBES OTHR DR: Dr. Jacklyn Polk MD Tissues: Fallopian tube Procedures: Surgery Specimen Level II Surgery Specimen Level IV HEADER OPERATION: Laparoscopic salpingectomy PRE-OP DIAGNOSIS: Sterilization TISSUE SUBMITTED: Bilateral fallopian tubes MICROSCOPIC DIAGNOSIS Right and left fallopian tubes, bilateral salpingectomies: Complete segments of fallopian tubes. Benign paratubal cyst. AM:garrett 08/04/2020 MICROSCOPIC DESCRIPTION Slides are reviewed. GROSS DESCRIPTION Received in fixative is one container labeled with the patient's name and designated bilateral fallopian tubes. The specimen consists of bilateral fallopian tubes including fimbrial ends measuring 8.5 cm in length and 0.4 cm in diameter and 6 cm in length and 0.4 cm in diameter. A detached fragment of cyst is also noted measuring 0.7 x 0.5 x 0.2 cm. The fallopian tubes are not identified as right or left. Sections reveal unremarkable cut surfaces. Respiratory Supervisor sections are submitted in two cassettes with each cassette containing one fallopian tube. Cassette 1 also contains the detached cyst. / SJ:garrett 08/03/20 TC:5 CPT: 43969, 54205
[2020-08-03 06:32] LABS: Internal QC Validated? YES +Cl - CLEAR BKGD; Pregnancy, Urine Negative Negative
[2020-08-03 06:54] LABS: Hematocrit 41.7 % (37-47); Hemoglobin 14.3 g/dL (12.0-15.0); Mean Corp Hgb Conc 34.3 g/dL (32-36); Mean Corpuscular Hgb 32.3 pg (27.0-32.0); Mean Corpuscular Volume 94.1 fL (81-99); Mean Platelet Vol. 9.4 fl (6.2-12.0); Platelet Count 292 K/mm3 (150-450); RBC Distribution Width CV 11.6 % (11.6-14.6); RBC Distribution Width SD 39.5 fl (35.1-43.9); Red Blood Count 4.43 M/mm3 (4.2-5.4)
[2020-08-03] MEDS: Lactated Ringers 1,000 ML 100 ML IV (07:03)
--- NOTE | 2020-08-03 07:27 | OP.PCM_ITS ---
Problem List (1) Request for sterilization Status: Acute Report of Operation Date of Procedure: 08/03/20 Pre-Operative Diagnosis: Desires sterilization, multiparous patient Post-Operative Diagnosis: As above Surgery/Procedure Performed:: Laparoscopic bilateral salpingectomy Description of Surgical Findings:: Normal appearing pelvis. Normal uterus, bilateral tubes, bilateral ovaries. M oderate descent of uterus and cervix. 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 She assisted with holding the camera and assisting with the salpingectomy. She also assisted with closure of the port sites. Type of Anesthesia:: General Special Medications: None Specimen's removed: Bilateral fallopian tubes Drains: None Estimated Blood Loss (mL): < 50 cc Fluids Replaced: 600 cc Description of Procedure: Start time: 727 Stop time: 818 She was taken to the operating room where general anesthesia was induced. She was prepped and draped in dorsal lithotomy position using yellowfin stirrups. A weighted speculum was placed in the vagina to expose the cervix. The anterior lip of the cervix was grasped with a single-tooth tenaculum. A Rain cannula was placed in the cervix for uterine manipulation. Gloves were changed and attention was turned to the abdominal portion of the procedure. Local was infiltrated at all port sites. An incision was made infraumbilically to accommodate a 5 mm port, and this was placed using direct visualization with the laparoscope. Once confirmed intraperitoneal, CO2 insufflation was initiated. The pelvis was inspected and findings were noted as above. A left lateral 5 mm port was placed. A right lateral 5 mm port was placed. The right fallopian tube was elevated out of the pelvis and followed out to the fimbriated end. Using the LigaSure device the mesosalpinx was serially clamped, cauterized, and cut until I reached the level of the cornua of the uterus. At the cornua of the uterus the fallopian tube was transected. The right fallopian tube was removed from the pelvis and sent to pathology for review. The same was performed on the left side to remove the left fallopian tube in its entirety. The fallopian tube was also sent to pathology for review. Good hemostasis was noted. All ports were removed. Using 4-0 Monocryl the port sites were closed and glue was placed over the port sites. From below all instruments were removed from the vagina and a vaginal sweep was performed. Instrument, sponge, needle counts were correct. Patient was taken recovery in stable condition. Grafts/Implants Used: None - Complications None - Admit VTE Documentation VTE Present on Admission: No VTE Mechan Device Prophylaxis: SCD's VTE Pharm Prophylaxis ordered?: No
--- NOTE | 2020-08-03 07:28 | PCM.DC ---
- Discharge Diagnoses Current Active Problems: Current Active and Chronic Problems (Last Reviewed 04/25/20 @ 16:00 by Sheila Hood) Request for sterilization (Acute) You will use the following diet at home:: No restrictions Your food should be the consistency of: Regular Discharge Activity: May Drive - once you feel strong enough to slam on a brake and turn a steering wheel sharply, May Shower May shower in (days): 1 May resume sexual activity in: 1 week - nothing in the vagina for 1 week Weight Bearing Status: Weight bearing as tolerated Lifting Restrictions: Nothing greater than 20 lbs for 2 weeks Call your doctor if your incision/area has: Sudden Increased Bleeding, Increased Pain/ Swelling, Increased Redness, Foul Smelling Discharge, Swelling at the incision site Call your doctor if you observe: Fever of 101 or Higher, Inability to urinate, Inability to have a bowel movement, Using more than one pad per hour, Shortness of breath, Dizziness, Fainting spells, Swelling in the ankles, Chest pain, Increased palpitations (irregular heartbeat), Calf discomfort, Uncontrolled pain Suture Line Care: Avoid Pulling/Pushing, Avoid Pinching/Bending Cleanse incision/area with: Soap & Water Allergies/Adverse Reactions: Allergies adhesive tape Allergy (Mild, Verified 08/03/20 06:38) Rash latex Allergy (Mild, Verified 08/03/20 06:38) Rash shellfish derived Allergy (Verified 08/03/20 06:38) Anaphylaxis Medications to take at Discharge cetirizine 10 mg tablet 10 mg PO DAILY PRN #90 tab 03/01/20 hydrocortisone 2.5 % topical cream 1 applic TOPICAL BID PRN #30 g 04/25/20 Citalopram [Celexa] 10 mg PO DAILY 05/31/20 Albuterol Sulfate [Albuterol Sulfate HFA] 1 - 2 puff INHALATION Q6H PRN 07/27/20 Gabapentin [Neurontin] 300 mg PO BIDCM 07/27/20 Vraylar 1.5 mg PO DAILY 08/03/20 Orders to be completed after discharge: Type & Screen - PAT ONLY Time Frame: 08/03/20, Facility: [facility], Location: Laboratory Primary Care Physician: Jacklyn Polk MD [Primary Care Provider] - Test Results: Test results from this visit will be discussed in further detail at your follow-up appointment, if applicable. Please Follow Up With: Neelima Jacobsen DO When: 1 week
[2020-08-03] MEDS: Bupivacaine Mpf 0.5% 30 ML VIAL (07:50)
== END 2020-08-03 10:00 | disposition home or self-care (01) ==
LOC: SDC 06:04 → AC 06:04
PROVIDERS: PCP Internal Medicine; Referring Provider Obstetrics & Gynecology; Visit Provider Obstetrics & Gynecology
PROC: (CPT 58661; principal; 2020-08-03 07:15)
DX: Z30.2 Encounter for sterilization (principal); N83.8 Other noninflammatory disorders of ovary, fallopian tube and broad ligament; J45.909 Unspecified asthma, uncomplicated; F17.210 Nicotine dependence, cigarettes, uncomplicated; K21.9 Gastro-esophageal reflux disease without esophagitis; D64.9 Anemia, unspecified; F41.9 Anxiety disorder, unspecified; F43.10 Post-traumatic stress disorder, unspecified; Z79.51 Long term (current) use of inhaled steroids; Z79.899 Other long term (current) drug therapy; Z20.822 Contact with and (suspected) exposure to COVID-19
CPT/HCPCS: 00840; 58661; 81025; 85027; 86850; 86870; 86900; 86901; 87426; 88302; 88305; C9803; J7120; J2405

== ENCOUNTER 2021-09-12 15:01 | Emergency (ER) | payer MEDICAID, SELFPAY ==
[2021-09-12 15:02] VITALS: BP 105/81; PULSE 122; RESP 20; TEMP 36.4; O2SAT 95; BMI 27.8
--- NOTE | 2021-09-12 15:08 | EKG12_ITS ---
Test Reason : OD Blood Pressure : / mmHG Vent. Rate : 109 BPM Atrial Rate : 109 BPM P-R Int : 136 ms QRS Dur : 086 ms QT Int : 312 ms P-R-T Axes : 036 077 053 degrees QTc Int : 420 ms Sinus tachycardia Septal infarct , age undetermined Abnormal ECG Confirmed by YESENIA GAMA, INÉS ([id number]), dictionary editor ZOIE ANNE ([id number]) on 09/14/2021 8:15:12 AM Referred By: GUICHO Confirmed By:BONI PATTERSON MD
--- NOTE | 2021-09-12 15:08 | EX.ED.DYSGE1 ---
HPI History of Present Illness Chief Complaint: Overdose Informant: patient and EMS Onset/Context/Timing Onset: Today (JPTA) Narrative Narrative: Patient is amnestic to all events. According to EMS, a bystander in her home found her unconscious in the shower with a needle half in her arm. They dragged her out of the shower, and eventually called EMS, they gave her Narcan 2 mg and she woke up immediately. She states she is having a lot of pain in her left rib cage and upper back, and it hurts to breathe. She states she did not do any drugs and I do not want to go to detention. She provides very little details and history saying that she does not remember. She is demanding water to drink. EMS states that according to what they saw and heard from bystanders, she may have aspirated. Details of this are unknown. [facility] Medical History Asthma Astigmatism Chlamydia Diarrhea H/O chronic bronchitis History of alcohol abuse History of drug abuse Migraines Polysubstance abuse Post viral syndrome Suspected COVID-19 virus infection URI (upper respiratory infection) Home Medications cetirizine 10 mg tablet 10 mg PO DAILY PRN #90 tab 03/01/20 [Rx Last Taken 05/30/20 21:00] citalopram 10 mg PO DAILY 05/31/20 [History Last Taken Unknown] gabapentin 300 mg PO BIDCM 07/27/20 [History Last Taken Unknown] Vraylar 1.5 mg PO DAILY 08/03/20 [History Last Taken Unknown] hydrocortisone 2.5 % topical cream 1 applic TOPICAL BID PRN #30 g 08/17/20 [Rx Last Taken Unknown] montelukast 10 mg tablet 10 mg PO QHS #90 tablet 08/17/20 [Rx Last Taken Unknown] omeprazole 20 mg capsule,delayed release 20 mg PO DAILY #90 cap 08/17/20 [Rx Last Taken Unknown] albuterol sulfate 90 mcg/actuation aerosol inhaler 2 puff INHALATION Q6H PRN #8.5 g 12/13/20 [Rx Last Taken Unknown] ibuprofen 800 mg tablet 800 mg PO TID PRN #60 tab 12/13/20 [Rx Last Taken Unknown] fluticasone 100 mcg-salmeterol 50 mcg/dose blistr powdr for inhalation 1 inh INHALATION BID #60 ea 01/25/21 [Rx Last Taken Unknown] Allergy/AdvReac Type Severity Reaction Status Date / Time adhesive tape Allergy Mild Rash Verified 09/12/21 15:14 latex Allergy Mild Rash Verified 09/12/21 15:14 shellfish derived Allergy Anaphylaxis Verified 09/12/21 15:14 Family History (Updated 05/31/20 @ 12:28 by Zahraacrow Nathan) Father Colon cancer Alcoholism Depression Asthma Seizures Grandmother Cervical cancer Diabetes Surgical History History of tubal ligation No history of previous surgery Social History number of children: 4 Smoking Status: Current every day smoker tobacco type: cigarettes alcohol intake: never substance use type: does not use seatbelt use: always do you feel safe at home: Yes ROS ROS ED Constitutional Constitutional ED: Denies chills or fever(s) Eyes Eyes: Denies change in vision or diplopia ENT ENT ED: Denies rhinorrhea or sore throat Cardiovascular Cardiovascular: Denies chest pain or palpitations Respiratory/Chest Respiratory/Chest: Reports cough; Denies dyspnea Gastrointestinal Gastrointestinal: Denies abdominal pain, diarrhea, nausea or vomiting Genitourinary Genitourinary ED: Denies dysuria or hematuria Musculoskeletal Musculoskeletal: Denies back pain or neck pain Integumentary Denies abscess or rash Neurologic Neurologic: Denies headache(s), paresthesias or weakness Psychiatric Psychiatric: Denies anxiety or suicidal thoughts EXAM Physical Exam Const Vital Signs: 09/12/21 15:02 09/12/21 15:38 09/12/21 15:48 Temperature 97.5 F L Temperature Source Temporal Pulse Rate 122 H 128 H Respiratory Rate 20 H 28 H Blood Pressure 105/81 H 119/107 H Blood Pressure Mean 89 111 Pulse Ox 95 92 95 Oxygen Delivery Method Room Air Room Air Room Air 09/12/21 16:13 09/12/21 17:10 Temperature Temperature Source Pulse Rate Respiratory Rate Blood Pressure Blood Pressure Mean Pulse Ox 94 91 Oxygen Delivery Method Room Air Room Air Positive well nourished and well developed General Appearance ED: well developed and NAD HEENT Reports moist mucous membranes HEENT Narrative: Swollen contused lower lip, no lacerations including mucosal surface. Tongue normal. No trismus. No facial tenderness or signs of trauma otherwise. normocephalic and atraumatic Eyes PERRL and EOMs intact bilaterally Neck full ROM and supple Chest Wall inspection of chest normal Chest Narrative: Tender throughout the left posterior lateral rib cage, no crepitance, obvious signs of trauma, or flail. Symmetric chest rise with breathing. Resp normal respiratory effort and clear to auscultation bilaterally Resp Narrative: Equal breath sounds present bilaterally. Limited exam because patient will not stop talking during the exam and moving around. Cardio regular rate, regular rhythm and no murmurs GI non-tender and non-distended Auscultation: normoactive bowel sounds Palpation: soft Back/Spine no CVA tenderness General Back: other FROM Extremity normal to inspection General Extremety ED: Negative for edema, pulses abnormal or tenderness General Extremity: Negative for edema or pulses abnormal Neuro oriented x3, CN's II-XII intact bilaterally and no sensory deficits noted Sensorium / Orientation: awake and alert Motor Exam: strength 5/5 throughout Psych Appearance: grossly normal Activity / Motor Behavior: psychomotor agitation and avoids eye contact Mood & Affect: anxious and tearful Skin no rashes or lesions noted and no wounds MDM MDM MDM Narrative Medical decision making narrative: In order to try to calm the patient down to facilitate examining her, I allowed her to have some sips of water. She started coughing immediately because she was choking it. At this point, I took the water away from her and said that I am not sure if it safe, and she became very upset and yelling at us. Obtained left rib series with a PA chest, 4 views of my interpretation negative for anything acute. Radiology in agreement. Patient settled down, she remained stable, she did have a wet sounding nonproductive cough without any dyspnea, her oxygen saturations were anywhere between 90-95% on room air. She did not become dyspneic. She was monitored for about 2.5 hours. She wanted to go home. We discussed the possibility of aspiration, and the fact that she could get worse later if she indeed aspirated. She understands this and refuses to stay longer and wants to go home, states she will return if she gets dyspneic. She is tired, but did not have any lapses in her level of consciousness over the past 2.5 hours, and in my opinion she is unlikely to require Narcan again tonight unless she overdoses again. She is currently living with a man who came to pick her up and is clinically sober. Radiography Diagnostic Testing: Clinical Impression(s) from Imaging Studies Ribs w/Chest X-Ray 09/12/21 15:30 IMPRESSION: RIBS: Normal x-ray examination of the ribs. CHEST: Normal x-ray examination of the chest. Electronically Signed: Miller Farr MD at 15:45 EDT , Rhythm Strip Rhythm Strip: Sinus Tach Rate: 115 Ectopy: None EKG Initial EKG: Attestation: I personally reviewed and interpreted this EKG as follows: Interpretation: No Acute Injury Pattern and Sinus Tachycardia (Anterior Q waves; otherwise normal EKG) Prior EKG tracings: available for review Prior: Unchanged Discharge Plan Triage Chief Complaint: Overdose ED Provider: Alistair Roberson Dx/Rx/DC Orders Clinical Impression: Contusion of rib on left side, Opiate overdose Instructions: ED Overdose, Opiate Prescriptions: No Action omeprazole 20 mg capsule,delayed release(DR/EC) 20 mg PO DAILY Qty: 90 RF: 1 montelukast [Singulair] 10 mg tablet 10 mg PO QHS Qty: 90 RF: 1 hydrocortisone 2.5 % cream 1 applic TOPICAL BID PRN (Reason: rash) Qty: 30 RF: 0 ibuprofen 800 mg tablet 800 mg PO TID PRN (Reason: Pain Score 6-10) Qty: 60 RF: 1 albuterol sulfate 90 mcg/actuation HFA aerosol inhaler 2 puff INHALATION Q6H PRN (Reason: Asthma) Qty: 8.5 RF: 1 fluticasone propion-salmeterol [Advair Diskus] 100-50 mcg/dose blister with device 1 inh inhalation BID Qty: 60 RF: 1 citalopram 10 MG tablet 10 mg PO DAILY RF: 0 gabapentin 300 MG capsule 300 mg PO BIDCM RF: 0 Vraylar 1.5 mg PO DAILY RF: 0 cetirizine [Zyrtec] 10 mg tablet 10 mg PO DAILY PRN (Reason: allergy symptoms) Qty: 90 RF: 1 Primary Care Provider: Jacklyn Polk Referrals: Jacklyn Polk MD [Primary Care Provider] - [facility] [STAFF PHYSICIAN] - As soon as possible (for help with addiction) Disposition Disposition: Home, Self Care
--- NOTE | 2021-09-12 15:30 | RAD_ITS ---
STUDY: X-RAY - UNILATERAL RIBS ( LEFT ) WITH CHEST REASON FOR EXAM: Female, 31 years old. Pain/injury left ribcage; cough after ?aspiration TECHNIQUE - RIBS: 4 view(s) of the ribs. TECHNIQUE - CHEST: Single PA view of the chest. COMPARISON: Comparison is made with prior chest radiograph dated 11/04/2019. FINDINGS - RIBS: Normal visualized ribs without a demonstrated fracture. FINDINGS - CHEST: The lungs are clear and expanded. There is no demonstrated pleural abnormality. Normal size heart. Normal mediastinum and pearl. Normal visualized pulmonary arteries. Normal visualized aortic arch and descending thoracic aorta. Normal visualized thoracic spine. Normal visualized ribs, clavicles, and shoulders. There is no demonstrated abnormality of the visualized soft tissue structures of the upper abdomen. RAD/Ribs Uni Min 3V w/PA Chest IMPRESSION: RIBS: Normal x-ray examination of the ribs. CHEST: Normal x-ray examination of the chest. Electronically Signed: Miller Farr MD at 15:45 EDT ,
[2021-09-12 15:38] VITALS: BP 119/107; PULSE 128; RESP 28; O2SAT 92
[2021-09-12 15:48] VITALS: O2SAT 95
--- NOTE | 2021-09-12 15:49 | ED.RN ---
Pt. ripped off all monitoring after being told she cannot have anything to drink due to possible aspiration. HRO at bedside and pt. yelling I am not going to intermediate my whole body hurts I feel fine I do not need to be here. Pt. tearful about not knowing where her child is. Dr. Roberson approved sips of water and pt. is agreeabe to sit back down to be monitored. Pt. currently at 93% room air.
[2021-09-12 16:13] VITALS: O2SAT 94
[2021-09-12 17:10] VITALS: O2SAT 91
[2021-09-12 17:36] VITALS: RESP 16; O2SAT 94
== END 2021-09-12 17:37 | disposition home or self-care (01) ==
PROVIDERS: Emergency Provider Emergency Medicine; PCP Internal Medicine; Visit Provider Emergency Medicine
DX: T40.2X4A Poisoning by other opioids, undetermined, initial encounter (principal); S20.212A Contusion of left front wall of thorax, initial encounter; X58.XXXA Exposure to other specified factors, initial encounter; Y93.9 Activity, unspecified; Y99.9 Unspecified external cause status; Y92.008 Other place in unspecified non-institutional (private) residence as the place of occurrence of the external cause; J45.909 Unspecified asthma, uncomplicated; Z79.899 Other long term (current) drug therapy; F17.210 Nicotine dependence, cigarettes, uncomplicated
CPT/HCPCS: 71101; 93005; 99285

== ENCOUNTER 2021-09-22 17:42 | Emergency (ER) | payer MEDICAID, SELFPAY ==
[2021-09-22 17:43] VITALS: BP 132/84; PULSE 120; RESP 18; TEMP 36.1; O2SAT 93; BMI 29.2
--- NOTE | 2021-09-22 17:52 | CT_ITS ---
STUDY: CT PELVIS WITH CONTRAST REASON FOR EXAM: Female, 31 years old. left buttock pain, swelling, left hip pain RADIATION DOSAGE (If Supplied By Facility): CTDIvol = ( 28.21 ) mGy, DLP = ( 873.48 ) mGycm TECHNIQUE: Transaxial imaging of the pelvis was performed without oral contrast. IV 75mL Isovue-300 was administered intravenously. Individualized dose optimization techniques were used for this CT. COMPARISON: None. FINDINGS: Normal urinary bladder. Normal visualized small intestine. Normal visualized colon. There is no pelvic fluid. There is no pelvic lymphadenopathy or mass lesion. Normal visualized pelvic arteries. Soft tissue edema of the lateral left hip subcutaneous fat. Localized edema of the left gluteus muscles evident on image 28 of series 2 without discrete focal fluid collection. Pelvic ring and proximal femurs are intact, normally aligned. The sacrum is unremarkable without evidence of sacral fracture. CT/Pelvis WITH IV Contrast IMPRESSION: 1. Localized edema of the left gluteus muscles and adjacent subcutaneous fat. Possibly sequela of previous injury/contusion or myositis. No focal fluid collection. Electronically Signed: Javi Mayes MD ([place]) at 18:51 EDT Reading Location ID and State: [facility] / [place] , Service support ,
--- NOTE | 2021-09-22 17:54 | ED.VIS.LOWEX ---
HPI History of Present Illness Chief Complaint: Lower Extremity Injury Detail of Chief Complaint: Pain left buttock and hip x1 week Informant: patient Narrative Narrative: Patient presents to the emergency department complaint of pain in her left buttock and left hip that started out a week ago. Patient states that she overdosed on car fentanyl 1 week ago and was seen in the emergency department. Since that time she has had pain in her left hip and left buttock. Pain worse with movement. No other trauma known. She is had no fevers. [facility] Medical History Asthma Astigmatism Chlamydia Diarrhea H/O chronic bronchitis History of alcohol abuse History of drug abuse Migraines Polysubstance abuse Post viral syndrome Suspected COVID-19 virus infection URI (upper respiratory infection) Home Medications cetirizine 10 mg tablet 10 mg PO DAILY PRN #90 tab 03/01/20 [Rx Last Taken 05/30/20 21:00] citalopram 10 mg PO DAILY 05/31/20 [History Last Taken Unknown] gabapentin 300 mg PO BIDCM 07/27/20 [History Last Taken Unknown] Vraylar 1.5 mg PO DAILY 08/03/20 [History Last Taken Unknown] hydrocortisone 2.5 % topical cream 1 applic TOPICAL BID PRN #30 g 08/17/20 [Rx Last Taken Unknown] montelukast 10 mg tablet 10 mg PO QHS #90 tablet 08/17/20 [Rx Last Taken Unknown] omeprazole 20 mg capsule,delayed release 20 mg PO DAILY #90 cap 08/17/20 [Rx Last Taken Unknown] albuterol sulfate 90 mcg/actuation aerosol inhaler 2 puff INHALATION Q6H PRN #8.5 g 12/13/20 [Rx Last Taken Unknown] ibuprofen 800 mg tablet 800 mg PO TID PRN #60 tab 12/13/20 [Rx Last Taken Unknown] fluticasone 100 mcg-salmeterol 50 mcg/dose blistr powdr for inhalation 1 inh INHALATION BID #60 ea 01/25/21 [Rx Last Taken Unknown] ibuprofen 600 mg PO Q8H PRN #30 tab 09/22/21 [Rx Last Taken Unknown] Allergy/AdvReac Type Severity Reaction Status Date / Time adhesive tape Allergy Mild Rash Verified 09/22/21 17:46 latex Allergy Mild Rash Verified 09/22/21 17:46 shellfish derived Allergy Anaphylaxis Verified 09/22/21 17:46 Family History (Updated 05/31/20 @ 12:28 by Zahraa Nathan) Father Colon cancer Alcoholism Depression Asthma Seizures Grandmother Cervical cancer Diabetes Surgical History History of tubal ligation No history of previous surgery Social History number of children: 4 Smoking Status: Current every day smoker tobacco type: cigarettes alcohol intake: never substance use type: does not use seatbelt use: always do you feel safe at home: Yes ROS ROS ED Constitutional Constitutional ED: Reports systems reviewed and no addt'l complaints, except as documented; Denies body ache(s), change in weight or chills Eyes Eyes: Denies acute decrease in peripheral vision, change in vision, double vision or loss of vision ENT ENT ED: Reports none; Denies ear pain, lip swelling, loss taste/smell, neck pain, otalgia or sore throat Cardiovascular Cardiovascular: Reports none; Denies abdominal pain, chest pain with activity, leg edema, lightheadedness, palpitations, rapid heart rate or syncope Respiratory/Chest Respiratory/Chest: Reports none; Denies change in mental status, dry cough, dyspnea, hemoptysis, shortness of breath at rest or shortness of breath with exertion Gastrointestinal Gastrointestinal: Reports none; Denies abdominal pain, change in stool character, diarrhea, hematemesis, hematochezia, melena, rectal bleeding or vomiting Genitourinary Genitourinary ED: Reports none; Denies abdominal discomfort, anuria, dysuria, genital pain or polyuria Musculoskeletal Musculoskeletal: Reports none and other Details: Left hip pain, swelling left buttock ; Denies arthralgias, back pain, difficulty walking, extremity pain, muscle weakness or myalgias Integumentary Reports none; Denies abscess or rash Neurologic Neurologic: Reports none; Denies abnormal gait, confusion, focal weakness, frequent falls, headache(s), loss of vision, numbness, paresthesias, radicular pain, vertigo or weakness Psychiatric Psychiatric: Reports systems reviewed and no addt'l complaints, except as documented and none; Denies behavioral changes, confusion, difficulty concentrating, hallucinations, suicidal ideation, tactile hallucinations or visual hallucinations Endocrine Endocrinology: Denies none, cold intolerance, excessive sweating, fatigue or heat intolerance Hematologic/Lymphatic Hematologic/Lymphatic: Reports none; Denies anemia, easy bleeding or easy bruising Allergic/Immunologic Allergic/Immunologic ED: Denies as per HPI, none, lip swelling, mouth swelling, throat swelling, tongue swelling or hives EXAM Physical Exam Const Vital Signs: 09/22/21 17:43 Temperature 97 F L Temperature Source Temporal Pulse Rate 120 H Respiratory Rate 18 Blood Pressure 132/84 H Blood Pressure Mean 100 Pulse Ox 93 Oxygen Delivery Method Room Air Positive well nourished and well developed General Appearance ED: well developed and NAD HEENT Reports TM's clear and moist mucous membranes normocephalic and atraumatic; Negative for trauma or tenderness Tympanic Membrane ED: Yes TM's clear Eyes PERRL and EOMs intact bilaterally General Eye ED: Negative for pale conjunctiva or scleral icterus Neck no lymphadenopathy, supple and no JVD General: Negative for tenderness Chest Wall inspection of chest normal and palpation of chest normal Chest: Negative for tenderness Resp normal respiratory effort and clear to auscultation bilaterally Effort and Inspection: Negative for respiratory distress or pain with movement Auscultation: Negative for rhonchi, wheezes or diminished lung sounds Cardio regular rate, regular rhythm, S1 normal heart sound, S2 normal heart sound and no murmurs Peripheral Pulses: pulses 2+ throughout GI normal to inspection, nondistended, normoactive bowel sounds, soft to palpation, non-tender, non-distended and no masses Back/Spine no CVA tenderness and no thoracic nor lumbar tenderness Extremity normal to inspection Extremity Narrative: Patient with tenderness palpation over the left gluteus haroon and left hip. There are some mild fullness over the left buttock compared to the right. There is no erythema or cellulitic changes. There is no ecchymosis or bruising noted. She is neurovascular intact distally. General Extremety ED: Negative for edema General Extremity: Negative for edema Neuro oriented x3, CN's II-XII intact bilaterally, no sensory deficits noted and gait normal Sensorium / Orientation: awake, alert, oriented to person, oriented to place and oriented to time Motor Exam: strength 5/5 throughout and strength abnormal Psych mental status grossly normal Skin no rashes or lesions noted and no wounds MDM MDM MDM Narrative Medical decision making narrative: Line established on arrival. Lab work-up unremarkable other than slightly elevated CPK of 282. CT scan of the pelvis with IV contrast obtained showed localized edema of the left gluteus muscles and adjacent subcutaneous fat possibly sequela of prior injury/contusion or myositis. There is no focal fluid collection. At this point discussed case with orthopedic surgeon on-call Dr. Hernandez. He would be happy to see patient in follow-up as an outpatient. I did advise her to return if fever, increased pain, redness, swelling, or condition should worsen anyway. I will write her prescription for ibuprofen. Lab Data Attestation: I reviewed the patient's lab results. Labs: Laboratory Results - last 24 hr 09/22/21 09/22/21 18:05 18:05 WBC 8.1 RBC 4.36 Hgb 13.3 Hct 40.2 MCV 92.2 MCH 30.5 MCHC 33.1 RDW Std Deviation 41.5 RDW Coeff of Lambert 12.2 Plt Count 281 MPV 9.9 Immature Gran % (Auto) 0.400 Neut % (Auto) 56.7 Lymph % (Auto) 29.0 [place] % (Auto) 7.5 Eos % (Auto) 5.7 H Baso % (Auto) 0.7 Absolute Neuts (auto) 4.6 Absolute Lymphs (auto) 2.35 Nucleated RBC % 0 Sodium 139 Potassium 4.8 Chloride 107 Carbon Dioxide 26.0 Anion Gap 6 BUN 16 Creatinine 0.90 Estim Creat Clear Calc 72.29 Est GFR (MDRD) Af Amer 95 Est GFR (MDRD) Non-Af 78 BUN/Creatinine Ratio 17.8 Glucose 93 Calcium 8.8 Total Creatine Kinase 282 H Radiography Diagnostic Testing: Clinical Impression(s) from Imaging Studies Pelvis CT 09/22/21 17:52 IMPRESSION: 1. Localized edema of the left gluteus muscles and adjacent subcutaneous fat. Possibly sequela of previous injury/contusion or myositis. No focal fluid collection. Electronically Signed: Javi Mayes MD ([place]) at 18:51 EDT , Discharge Plan Triage Chief Complaint: Lower Extremity Injury ED Provider: Ungur,Remus Dx/Rx/DC Orders Clinical Impression: Contusion of soft tissue Instructions: ED Soft Tissue Contusion, ED Myositis Prescriptions: New ibuprofen 600 mg tablet 600 mg PO Q8H PRN (Reason: pain) Qty: 30 RF: 0 No Action omeprazole 20 mg capsule,delayed release(DR/EC) 20 mg PO DAILY Qty: 90 RF: 1 montelukast [Singulair] 10 mg tablet 10 mg PO QHS Qty: 90 RF: 1 hydrocortisone 2.5 % cream 1 applic TOPICAL BID PRN (Reason: rash) Qty: 30 RF: 0 ibuprofen 800 mg tablet 800 mg PO TID PRN (Reason: Pain Score 6-10) Qty: 60 RF: 1 albuterol sulfate 90 mcg/actuation HFA aerosol inhaler 2 puff INHALATION Q6H PRN (Reason: Asthma) Qty: 8.5 RF: 1 fluticasone propion-salmeterol [Advair Diskus] 100-50 mcg/dose blister with device 1 inh inhalation BID Qty: 60 RF: 1 citalopram 10 MG tablet 10 mg PO DAILY RF: 0 gabapentin 300 MG capsule 300 mg PO BIDCM RF: 0 Vraylar 1.5 mg PO DAILY RF: 0 cetirizine [Zyrtec] 10 mg tablet 10 mg PO DAILY PRN (Reason: allergy symptoms) Qty: 90 RF: 1 Primary Care Provider: Jacklyn Polk Referrals: Jacklyn Polk MD [Primary Care Provider] - Fransisco Hernandez MD [STAFF PHYSICIAN] - 1-2 Weeks
[2021-09-22 18:15] LABS: Absolute Lymphocyte Count 2.35 X10^3/uL (0.83-4.51); Absolute Neutrophil Count 4.6 X10^3/uL (2.0-7.7); Basophil# 0.06 X10^3/uL; Basophil% 0.7 % (0-1); Eosinophil# 0.46 X10^3/uL; Eosinophils% 5.7 % (0-5); Hematocrit 40.2 % (37-47); Hemoglobin 13.3 g/dL (12.0-15.0); Lymphocyte # 2.35 X10^3/ul (0.83-4.51); Mean Corp Hgb Conc 33.1 g/dL (32-36); Mean Corpuscular Hgb 30.5 pg (27.0-32.0); Mean Corpuscular Volume 92.2 fL (81-99); Mean Platelet Vol. 9.9 fl (6.2-12.0); Monocyte# 0.61 X10^3/uL; Monocyte% 7.5 % (0-10); NRBC Flagged by Analyzer 0 % (0-5); Neutrophil # 4.59 X10^3/uL (2.7-7.7); Neutrophil % 56.7 % (47-70); Platelet Count 281 K/mm3 (150-450); RBC Distribution Width CV 12.2 % (11.6-14.6); RBC Distribution Width SD 41.5 fl (35.1-43.9); Red Blood Count 4.36 M/mm3 (4.2-5.4); White Blood Count 8.1 K/mm3 (4.4-11.0)
[2021-09-22 19:01] LABS: Anion Gap 6 (5-15); BUN 16 mg/dL (7-18); BUN/Creat Ratio 17.8 RATIO (10-20); CPK Total, Creatine Kinase 282 U/L (26-192); Calcium,Total 8.8 mg/dL (8.5-10.1); Chloride 107 mmol/L (98-107); EST Glomerular Filtration Rate 78 mL/min (>60); Est Glom Filt Rate - Afr Amer 95 mL/min (>60); Estimated Creatinine Clearance 72.29 ml/min; Glucose 93 mg/dL (74-106); Potassium 4.8 mmol/L (3.5-5.1); Sodium Level 139 mmol/L (136-145)
== END 2021-09-22 19:23 | disposition home or self-care (01) ==
PROVIDERS: Emergency Provider Emergency Medicine; PCP Internal Medicine; Visit Provider Emergency Medicine
DX: T14.8XXA Other injury of unspecified body region, initial encounter (principal); M25.552 Pain in left hip; J45.909 Unspecified asthma, uncomplicated; Z79.51 Long term (current) use of inhaled steroids; F17.210 Nicotine dependence, cigarettes, uncomplicated; X58.XXXA Exposure to other specified factors, initial encounter; Y93.9 Activity, unspecified; Y99.9 Unspecified external cause status; Y92.9 Unspecified place or not applicable
CPT/HCPCS: 72193; 80048; 82550; 85025; 99283; Q9967; A4216

== ENCOUNTER 2022-04-18 13:32 | Emergency (ER) | payer MEDICAID, SELFPAY ==
[2022-04-18] VITALS (8 sets, daily range): BP systolic 112–129; BP diastolic 39–89; PULSE 102–149; RESP 18–95; TEMP 36.4–36.9; O2SAT 91–97; BMI 18.3
--- NOTE | 2022-04-18 14:15 | ED.RN ---
PT WAS SOUND ASLEEP IN THE WAITING ROOM WITH CALM EVEN BREATHING AND NO DISTRESS NOTED.
--- NOTE | 2022-04-18 15:06 | ED.VIS.DYS ---
HPI History of Present Illness Chief Complaint: Shortness of Breath Narrative Narrative: 31-year-old female presenting with fever, chills, body aches, Cough. She also states she feels short of breath. She has a history of asthma and feels like she is wheezing. Patient states that initially her symptoms were nausea and vomiting. This had resolved. Patient denies chest pain. No urinary symptoms. No concern for . Patient does report that she overdosed earlier and had to be Narcan, but she states she had been sick prior to this. [facility] Medical History Asthma Astigmatism Chlamydia Diarrhea H/O chronic bronchitis History of alcohol abuse History of drug abuse Migraines Polysubstance abuse Post viral syndrome Suspected COVID-19 virus infection URI (upper respiratory infection) Home Medications cetirizine 10 mg tablet (Zyrtec) 10 mg PO DAILY PRN allergy symptoms #90 tabs 03/01/20 [Rx Last Taken 05/30/20 21:00] gabapentin 300 mg capsule 300 mg PO BIDCM 07/27/20 [History Last Taken Unknown] hydrocortisone 2.5 % topical cream 1 applic topical BID PRN rash #30 grams 08/17/20 [Rx Last Taken Unknown] montelukast 10 mg tablet (Singulair) 10 mg PO QHS #90 tabs 08/17/20 [Rx Last Taken Unknown] fluticasone 100 mcg-salmeterol 50 mcg/dose blistr powdr for inhalation (Advair Diskus) 1 inh inhalation BID #60 ea 01/25/21 [Rx Last Taken Unknown] ibuprofen 600 mg tablet 600 mg PO Q8H PRN pain #30 tabs 09/22/21 [Rx Last Taken Unknown] albuterol sulfate 90 mcg/actuation aerosol inhaler 2 puff inhalation Q6H PRN Asthma #8.5 grams 04/16/22 [Rx Last Taken Unknown] cariprazine 1.5 mg capsule (Vraylar) 1.5 mg PO DAILY 04/18/22 [History Last Taken Unknown] citalopram 20 mg tablet 20 mg PO DAILY 04/18/22 [History Last Taken Unknown] naloxone 4 mg/actuation nasal spray intranasal 04/18/22 [History Last Taken Unknown] quetiapine 200 mg tablet 200 mg PO DAILY 04/18/22 [History Last Taken Unknown] Allergy/AdvReac Type Severity Reaction Status Date / Time adhesive tape Allergy Mild Rash Verified 04/18/22 13:35 latex Allergy Mild Rash Verified 04/18/22 13:35 shellfish derived Allergy Anaphylaxis Verified 04/18/22 13:35 Family History Father Colon cancer Alcoholism Depression Asthma Seizures Grandmother Cervical cancer Diabetes Surgical History History of tubal ligation No history of previous surgery Social History number of children: 4 Smoking Status: Current every day smoker tobacco type: cigarettes alcohol intake: never substance use type: does not use seatbelt use: always do you feel safe at home: Yes ROS ROS ED Constitutional Constitutional ED: Reports chills and fever(s) Eyes Eyes: Denies change in vision or diplopia ENT ENT ED: Reports rhinorrhea Cardiovascular Cardiovascular: Denies chest pain or palpitations Respiratory/Chest Respiratory/Chest: Reports cough, dyspnea and dyspnea on exertion Gastrointestinal Gastrointestinal: Reports nausea and vomiting; Denies abdominal pain Genitourinary Genitourinary ED: Denies dysuria or hematuria Musculoskeletal Musculoskeletal: Reports myalgias Integumentary Denies abscess or Abrasions Neurologic Neurologic: Reports headache(s); Denies paresthesias or weakness Psychiatric Psychiatric: Denies anxiety or depression EXAM Physical Exam Const Vital Signs: 04/18/22 13:33 04/18/22 13:34 04/18/22 14:46 Temperature 97.5 F L 97.5 F L Temperature Source Temporal Temporal Pulse Rate 149 H 149 H Respiratory Rate 24 H 24 H Respiratory Effort Short of Breath Respiratory Depth Normal Respiratory Pattern Tachypnea Blood Pressure 129/39 H 129/39 H Blood Pressure Mean 69 69 Pulse Ox 97 97 Oxygen Delivery Method Room Air Room Air Room Air 04/18/22 15:17 04/18/22 15:17 04/18/22 15:17 Temperature Temperature Source Pulse Rate 121 H Respiratory Rate 18 19 H Respiratory Effort Respiratory Depth Respiratory Pattern Blood Pressure Blood Pressure Mean Pulse Ox 91 91 Oxygen Delivery Method Room Air Room Air Positive well nourished General Appearance ED: NAD; Negative for pallor HEENT Reports moist mucous membranes atraumatic Eyes PERRL and EOMs intact bilaterally Resp Resp Narrative: Slightly tachypneic no accessory muscle use. Auscultation: wheezes expiratory wheezes Cardio regular rate Rate: tachycardic GI Palpation: soft Neuro oriented x3 and CN's II-XII intact bilaterally Sensorium / Orientation: alert Motor Exam: strength 5/5 throughout Psych mental status grossly normal Skin General Skin Exam: Negative for jaundice or pallor MDM MDM MDM Narrative Medical decision making narrative: Patient seen and evaluated on arrival. He was initially documented that she had a pulse ox of 97% on room air. It was later documented it was 91%. When I was evaluating the patient she was wheezing and was given breathing treatments and prednisone. She did not want any testing for viral sources. She wanted to be treated for her symptoms. I did obtain a chest x-ray which on my interpretation does not show an infiltrate. Again patient was given Narcan earlier for overdose and I suspect her pulse ox is dropping from this. I had her ambulated and she maintained sats at 97 to 98% while ambulating. When she starts to fall asleep this goes down. She is refusing Narcan and is alert and oriented. I did offer her blood work given her abnormal vital signs but she does not want this. Given the patient's symptoms I will treat her as a pneumonia. She is given Levaquin with first dose in the ER. She is given Zofran for home and a burst of prednisone for her asthma exacerbation. Impression: 1.community-acquired pneumonia 2. Asthma exacerbation 3. Tachycardia Lab Data Attestation: I reviewed the patient's lab results. Radiography Diagnostic Testing: Clinical Impression(s) from Imaging Studies Chest X-Ray 04/18/22 15:21 IMPRESSION: Mild degree of increased markings in the medial aspect of the right lung base. Electronically Signed: Miller Farr MD at 15:38 EST , Discharge Plan Triage Chief Complaint: Shortness of Breath ED Provider: Corbin Mcgraw Dx/Rx/DC Orders Prescriptions: No Action montelukast [Singulair] 10 mg tablet 10 mg PO QHS Qty: 90 1RF hydrocortisone 2.5 % cream 1 applic TOPICAL BID PRN (Reason: rash) Qty: 30 0RF fluticasone propion-salmeterol [Advair Diskus] 100-50 mcg/dose blister with device 1 inh inhalation BID Qty: 60 1RF gabapentin 300 MG capsule 300 mg PO BIDCM ibuprofen 600 mg tablet 600 mg PO Q8H PRN (Reason: pain) Qty: 30 0RF quetiapine 200 mg tablet 200 mg PO DAILY citalopram 20 mg tablet 20 mg PO DAILY Label Comments: TAKE 1 TABLET BY MOUTH EVERY DAY Vraylar 1.5 mg capsule 1.5 mg PO DAILY naloxone 4 mg/actuation spray,non-aerosol INTRANASAL cetirizine [Zyrtec] 10 mg tablet 10 mg PO DAILY PRN (Reason: allergy symptoms) Qty: 90 1RF albuterol sulfate 90 mcg/actuation HFA aerosol inhaler 2 puff INHALATION Q6H PRN (Reason: Asthma) Qty: 8.5 0RF Primary Care Provider: Jacklyn Polk Referrals: Jacklyn Polk MD [Primary Care Provider] -
[2022-04-18] MEDS: Ipratropium/Albuterol Sulfate 3 ML AMPUL.NEB INHALATION (15:15)
[2022-04-18] MEDS: Albuterol 2.5 MG/3 ML VIAL.NEB. INHALATION (15:15)
--- NOTE | 2022-04-18 15:21 | RAD_ITS ---
STUDY: X-RAY CHEST REASON FOR EXAM: Female, 31 years old. Cough TECHNIQUE: Single AP portable view of the chest. COMPARISON: Comparison is made with prior study of 09/12/2021. FINDINGS: Mild degree of increased interstitial markings in the right medial lung base. There is no demonstrated pleural abnormality. Normal size heart. Normal mediastinum and pearl. Normal visualized pulmonary arteries. Normal visualized aortic arch and descending thoracic aorta. Normal visualized thoracic spine. Normal visualized ribs, clavicles, and shoulders. There is no demonstrated abnormality of the visualized soft tissue structures of the upper abdomen. RAD/Chest 1 View (Portable) IMPRESSION: Mild degree of increased markings in the medial aspect of the right lung base. Electronically Signed: Miller Farr MD at 15:38 EST ,
[2022-04-18] MEDS: predniSONE 20 MG Tablet 60 MG PO (15:44)
[2022-04-18] MEDS: Acetaminophen 500 MG Tablet 1000 MG PO (15:44)
[2022-04-18] MEDS: levoFLOXacin 750 MG Tablet PO (16:10)
== END 2022-04-18 16:13 | disposition home or self-care (01) ==
PROVIDERS: Emergency Provider Student in an Organized Health Care Education/Training Program; PCP Internal Medicine; Visit Provider Student in an Organized Health Care Education/Training Program
DX: J18.9 Pneumonia, unspecified organism (principal); J45.901 Unspecified asthma with (acute) exacerbation; R06.02 Shortness of breath; R51.9 Headache, unspecified
CPT/HCPCS: G0463; 71045; 94640; 99251; 99283

== ENCOUNTER 2023-07-14 20:30 | Emergency (ER) | payer MEDICAID, SELFPAY ==
[2023-07-14 20:32] VITALS: BP 140/94; PULSE 106; RESP 18; TEMP 36.9; O2SAT 97
--- NOTE | 2023-07-14 20:42 | EDS_ITS ---
HPI History of Present Illness Chief Complaint: Overdose [facility] Medical History Asthma Astigmatism Chlamydia Diarrhea H/O chronic bronchitis History of alcohol abuse History of drug abuse Migraines Polysubstance abuse Post viral syndrome Suspected COVID-19 virus infection URI (upper respiratory infection) Home Medications cetirizine 10 mg tablet (Zyrtec) 10 mg PO DAILY PRN allergy symptoms #90 tabs 03/01/20 [Rx Last Taken 05/30/20 21:00] gabapentin 300 mg capsule 300 mg PO BIDCM 07/27/20 [History Last Taken Unknown] hydrocortisone 2.5 % topical cream 1 applic topical BID PRN rash #30 grams 08/17/20 [Rx Last Taken Unknown] montelukast 10 mg tablet (Singulair) 10 mg PO QHS #90 tabs 08/17/20 [Rx Last Taken Unknown] fluticasone 100 mcg-salmeterol 50 mcg/dose blistr powdr for inhalation (Advair Diskus) 1 inh inhalation BID #60 ea 01/25/21 [Rx Last Taken Unknown] ibuprofen 600 mg tablet 600 mg PO Q8H PRN pain #30 tabs 09/22/21 [Rx Last Taken Unknown] albuterol sulfate 90 mcg/actuation aerosol inhaler 2 puff inhalation Q6H PRN Asthma #8.5 grams 04/16/22 [Rx Last Taken Unknown] albuterol sulfate 90 mcg/actuation aerosol inhaler (Ventolin HFA) 1 - 2 puff inhalation Q4H PRN PRN Wheezing #6.7 grams 04/18/22 [Rx Last Taken Unknown] cariprazine 1.5 mg capsule (Vraylar) 1.5 mg PO DAILY 04/18/22 [History Last Taken Unknown] citalopram 20 mg tablet 20 mg PO DAILY 04/18/22 [History Last Taken Unknown] levofloxacin 750 mg tablet 750 mg PO DAILY #4 tabs 04/18/22 [Rx Last Taken Unknown] naloxone 4 mg/actuation nasal spray intranasal 04/18/22 [History Last Taken Unknown] ondansetron 4 mg disintegrating tablet 4 mg PO Q8H PRN nausea and vomiting #14 tabs 04/18/22 [Rx Last Taken Unknown] prednisone 50 mg tablet 50 mg PO DAILY #5 tabs 04/18/22 [Rx Last Taken Unknown] quetiapine 200 mg tablet 200 mg PO DAILY 04/18/22 [History Last Taken Unknown] Allergy/AdvReac Type Severity Reaction Status Date / Time adhesive tape Allergy Mild Rash Verified 04/18/22 13:35 latex Allergy Mild Rash Verified 04/18/22 13:35 shellfish derived Allergy Anaphylaxis Verified 04/18/22 13:35 Family History Father Colon cancer Alcoholism Depression Asthma Seizures Grandmother Cervical cancer Diabetes Surgical History History of tubal ligation No history of previous surgery Social History number of children: 4 Smoking Status: Current every day smoker tobacco type: cigarettes alcohol intake: never substance use type: does not use seatbelt use: always do you feel safe at home: Yes EXAM Physical Exam Const Vital Signs: 07/14/23 20:32 Temperature 98.4 F Temperature Source Temporal Pulse Rate 106 H Respiratory Rate 18 Blood Pressure 140/94 H Blood Pressure Mean 109 Pulse Ox 97 Oxygen Delivery Method Room Air MDM MDM MDM Narrative Medical decision making narrative: HISTORY OF PRESENT ILLNESS: 32-year-old female presents with concern for opiate overdose. Per police patient was [place] . Per the patient she is not overdose she has not hide she states she does use fentanyl she smokes snorts and injects it at times. States he last used this afternoon approximately 3 PM but did not overdose this evening. She vehemently denies being overdose. She has no complaints. She presented because she the option to come to the hospital or go directly to group home. She states she does not want to go to group home. REVIEW OF SYSTEMS: Pertinent positives: None Pertinent negatives: Chest pain, shortness of breath, headache, back pain, fever PHYSICAL EXAM: Nursing triage notes reviewed, Vital signs reviewed Constitutional: please see mdm HENT: MMM Eyes: Pupils equal round and reactive to light, Extraocular muscles intact Neck: No stridor, no JVD, full neck ROM Lungs: Clear to auscultation, No wheezing or rales. No increased work of breathing, no conversational dyspnea, no accessory muscle use, no nasal flaring. No respiratory distress noted Heart: Regular rate and rhythm, No murmurs, No rubs and No gallops, 2+ distal pulses (radial, femoral, posterior tibial) in all extremities Abdomen: Soft, there is no tenderness, rigidity, rebound or guarding, no obvious peritoneal signs, no palpable pulsatile abdominal masses, no auscultated abdominal bruit : No CVAT Extremities: No edema Neuro: No focal neurological deficits, cranial nerves II through XII intact, 5/5 strength in all extremities. Intact sensation to light touch in all extremities, 2+ reflexes bilateral patella tendons. Normal gait. No ataxia. Skin: No rash or lesions noted MEDICAL DECISION MAKING: Chief Complaint: Drug intoxication External records reviewed: Last ED visit 2021 for pneumonia Factors affecting care: Polysubstance use MDM Narrative: [ Patient was hemodynamically stable, afebrile, nontoxic-appearing. No overt signs of abnormalities on exam. No murmurs. No midline back pain. No focal deficit lower extremities. Patient was observed in the ED without evidence of opiate overdose. She was intoxicated however should be in the custody of police so she was discharged in stable condition to group home. The patient and/or family, caregivers express understanding. The patient and/or family, caregivers agrees with the plan. Shared decision making: I will have a discussion with the patient and or visitors regarding risk/benefits of further testing or admission. They will be made aware of of the risk/benefits inherent in this decision they will be given the opportunity to voice understanding. Total critical care time today provided was at least 0 [] minutes. This excludes separately billable procedures. Critical care time (if documented) is secondary to the patient having high probability of clinically significant/life threatening deterioration in the patient's condition which required my urgent intervention. Impression: 1. History of polysubstance abuse 2. Opiate use disorder Dispo: Discharge This note was generated with [employer] dictation software. It may contain incorrect words, spelling, and punctuation that were not noted in review of the chart prior to signing. Discharge Plan Triage Chief Complaint: Overdose ED Provider: Rachid Larsen Dx/Rx/DC Orders Prescriptions: No Action montelukast [Singulair] 10 mg tablet 10 mg PO QHS Qty: 90 1RF hydrocortisone 2.5 % cream 1 applic TOPICAL BID PRN (Reason: rash) Qty: 30 0RF fluticasone propion-salmeterol [Advair Diskus] 100-50 mcg/dose blister with device 1 inh inhalation BID Qty: 60 1RF gabapentin 300 MG capsule 300 mg PO BIDCM ibuprofen 600 mg tablet 600 mg PO Q8H PRN (Reason: pain) Qty: 30 0RF quetiapine 200 mg tablet 200 mg PO DAILY citalopram 20 mg tablet 20 mg PO DAILY Patient Comments: TAKE 1 TABLET BY MOUTH EVERY DAY Vraylar 1.5 mg capsule 1.5 mg PO DAILY naloxone 4 mg/actuation spray,non-aerosol INTRANASAL prednisone 50 mg tablet 50 mg PO DAILY Qty: 5 0RF albuterol sulfate [Ventolin HFA] 90 mcg/actuation HFA aerosol inhaler 1 - 2 puff inhalation Q4H PRN PRN (Reason: Wheezing) Qty: 6.7 0RF ondansetron 4 mg tablet,disintegrating 4 mg PO Q8H PRN (Reason: nausea and vomiting) Qty: 14 0RF levofloxacin 750 mg tablet 750 mg PO DAILY Qty: 4 0RF cetirizine [Zyrtec] 10 mg tablet 10 mg PO DAILY PRN (Reason: allergy symptoms) Qty: 90 1RF albuterol sulfate 90 mcg/actuation HFA aerosol inhaler 2 puff INHALATION Q6H PRN (Reason: Asthma) Qty: 8.5 0RF Primary Care Provider: Jacklyn Polk Referrals: Jacklyn Polk MD [Primary Care Provider] -
--- OUTSIDE RECORDS SUMMARY | 2023-07-14 21:07 | XMS RPT_ITS | CCD ---
Author Name Unknown Address [address] [place] [address] Organization [facility] Care Team Providers Care Butting Saw Operator Name Role Phone PHYSICIAN, NONE Unavailable Unavailable MAGAN PARRA Unavailable Unavailable [facility] Unavailable Unavai lable Unavailable Primary Care Provider Unavailabl e Unavailable Primary Care Provider Unavailabl e Allergies Allergy Classification Reported Allergen(s) Allergy Type Date of Onset Reaction(s) Facility (2 sources) Latex Propensity to adverse reactions to drug 0 Rash [place], [place] (2 sources) Fish-Derived Products Propensity to adverse reactions to drug 0 Shortness Of Breath, Swelling [place] Medications Current Medications Medication Drug Class(es) Dates Sig (Normalized) Sig (Original) acetaminophen 325 mg oral tablet (3 sources) Start: 02-24-2020 650 mg, Oral, EVERY 4 HOURS PRN, Pain Mild (1-3), Pain Mild (1-3) or Fever greater than 100.5 F (38 C), Starting [facility] 02/24/20 at 0211 Maximum dose of acetaminophen is 4000 mg from all sources in 24 hours. Completed/Discontinued Medications Medication Drug Class(es) Dates Sig (Normalized) Sig (Original) nitrofurantoin, macrocrystals 25 mg / nitrofurantoin, monohydrate 75 mg oral capsule (4 sources) Nitrofuran Antibacterial Start: 10-22-2019 End: 10-27-2019 take 1 capsule by mouth twice daily nitrofurantoin, macrocrystal-monoh ydrate, (MACROBID) 100 MG capsule Take 1 capsule by mouth 2 times daily for 3 doses 3 capsule 0 10/25/2019 10/25/2019 Discontinued Problems Active Problems Problem Classification Problem Date Documented Da te Episodic/Chronic Alcohol-related disorders (3 sources) Alcohol withdrawal syndrome; Translations: [Alcohol withdrawal syndrome without complication] Onset: 09-12-2018 09-14-2018 Chronic Substance-related disorders (14 sources) Opioid abuse; Translations: [Substance misuse behavior] Onset: 09-11-2018 09-14-2018 Chronic Past or Other Problems Problem Classification Problem Date Documented Da te Episodic/Chronic Substance-related disorders (3 sources) Maternal drug use; Translations: [Drug use affecting in first trimester] Onset: 10-23-2019 10-23-2019 Episodic Unclassified (1 source) BLISTERS IN MY MOUTH/CAR Onset: 12-28-2017 Results Test Name Value Interpretation Reference Range Facil it Vital Signs Date Time Vital Sign Value Performing Clinician Faci litcassie 02-24-2020 07:40-0400 Body Temperature 98.1 [degF] [facility], [place] 02-24-2020 07:40-0400 BP Diastolic 60 mm[Hg] [place] 02-24-2020 07:40-0400 BP Systolic 104 mm[Hg] [place] 02-24-2020 07:40-0400 Pulse (Heart Rate) 71 /min [facility], [place] 02-24-2020 07:40-0400 Pulse Oximetry 95 % [place] 02-24-2020 07:40-0400 Respiratory Rate 16 /min [facility], [place] 02-23-2020 21:01-0400 BMI (Body Mass Index) 25.61 kg/m2 [place] 02-23-2020 21:01-0400 Body weight 63.5 kg [place] 02-23-2020 21:01-0400 Height 157.5 cm [facility] , [place] 10-25-2019 08:45-0400 Body Temperature 98.49 [degF] [facility], [place] 10-25-2019 08:45-0400 BP Diastolic 69 mm[Hg] [facility] [place]), [place] 10-25-2019 08:45-0400 BP Systolic 96 mm[Hg] [facility], [place] 10-25-2019 08:45-0400 Pulse (Heart Rate) 86 /min Huber Frank [facility], [place] 10-25-2019 08:45-0400 Pulse Oximetry 95 % [facility], [place] 10-25-2019 08:45-0400 Respiratory Rate 16 /min Huber Frank [facility], [place] 10-22-2019 12:39-0400 BMI (Body Mass Index) 23.99 kg/m2 Huber Barber [facility], [place] 10-22-2019 12:39-0400 Body weight 59.5 kg [facility], [place] 10-22-2019 12:39-0400 Height 157.5 cm Huber [facility], [place] 10-21-2019 18:22-0400 BMI (Body Mass Index) 24.33 kg/m2 [facility] [place] 10-21-2019 18:22-0400 Body weight 60.33 kg Huber Frank [facility], [place] 10-21-2019 18:22-0400 Height 157.5 cm [facility], [place] Encounters Encounter Date Encounter Type Care Provider Facility Start: 02-23-2020 End: 02-24-2020 Evaluation and management of inpatient Meng Davila Work Phone: [facility] Start: 10-21-2019 End: 10-25-2019 Evaluation and management of inpatient Huber Toro Work Phone: [facility] Procedures Date Procedure Procedure Detail Performing Clinician Start: 02-24-2020 Us preg uterus w/det ail radha 1st gestation Meng Erich Giovanni Work Phone: Start: 02-24-2020 Blood typing serologic abo Baudilio Pina Work Phone: Start: 02-23-2020 ADD ON LAB TEST Tierra Cuellar Work Phone: Start: 02-23-2020 CANNABINOID, URINE, SCREENING, CRITICAL CARE Estelle Aquino Work Phone: Start: 02-23-2020 Drug screen class list a Estelle Barber Kenia Work Phone: Start: 02-23-2020 Drug screen quantita tive alcohols Estelle Barber Kenia Work Phone: Start: 02-23-2020 Drug screening buprenorphine Estelle Barber Kenia Work Phone: Start: 02-23-2020 Drug tst prsmv instr mnt chem analyzers pr date Estelle Aquino Work Phone: Start: 10-22-2019 Antibody hiv-1&hiv-2 single result Marge Chu Work Phone: Start: 10-22-2019 Blood count complete auto&auto difrntl wbc Marge Chu Work Phone: Start: 10-22-2019 Blood typing serologic abo Marge Chu Work Phone: Start: 10-22-2019 Hepatitis c antibody Ka ghazal Chu Work Phone: Start: 10-22-2019 Iaad ia hepatitis b surface antigen Marge Chu Work Phone: Start: 10-22-2019 RUBELLA IMMUNE Elvie Chu Work Phone: Start: 10-22-2019 Syphilis test non-treponemal antibody qual Marge Chu Work Phone: Start: 10-21-2019 Iadna multiple organ isms direct probe tq Marge Chu Work Phone: Start: 10-21-2019 MEDICATION ASSISTED TREATMENT PANEL Marge Chu Work Phone: Start: 10-21-2019 MEDICATION ASSISTED TREATMENT PANEL Marge Chu Work Phone: Plan of Treatment Date Care Activity Detail Author Start: 01-11-2020 Influenza vaccination [place] End: 02-24-2020 ALCOHOL-URINE SCREEN ALCOHOL-URINE SCREEN Lab Add-On One Time for 1 Occurrences starting 02/24/2020 until 02/24/2020 [place] Payers Date Payer Category Payer Unknown [facility] [id number] 2019-Present [phone] [address] [place] [address] [id number] 2018 Unknown [employer] xxxxxxxxxxx 2018-Present [phone] [address] [place] [address] xxxxxxxxxxx [id number] 2017 Medicaid [id number] Self-pay [id number] Unknown [id number] Unknown [id number] Unknown [id number] Social History Date Type Detail Facility Start: 10-21-2019 End: 02-23-2020 Tobacco smoking status NHIS Current every day smoker [place] Start: 10-21-2019 End: 02-23-2020 Cigarettes smoked current (pack per day) - Reported [place] Start: 10-21-2019 Alcohol intake Current drinke r of alcohol (finding) [place] Start: 09-16-2019 [place] Sex Assigned At Not on file [place] Exposure to SARS-CoV -2 (event) Unable to assess [place] Start: 02-23-2020 Tobacco use and exposure Never used [place] Start: 02-23-2020 Alcohol intake Ex-drinker (finding) [place] Progress note 01-26-2021 Note Date & Type Note Facility 01-26-2021 Note HNO ID: [id number] Author: Mayela Rodriguez APRN.[employer] Service: ? Author Type: Nurse Practitioner Type: Progress Notes Filed: 01/26/2021 1:12 PM Note Text: Subjective The history is provided by the patient. No manager operations and procurement was used. ALICE Briones is a 30 year old female who presents today for CC of wheezing off and on for a week. She started with cold like symptoms, was tested for covid with Dr. Polk, and was negative. She started the cold symptoms are getting better, just continuing to wheeze. She has prescribed inhalers that she is using. She has had covid x 2, not vaccinated. BP 116/78 Pulse 97 Temp 37 ?C (98.6 ?F) Resp 18 Wt 81.9 kg (180 lb 9.6 oz) LMP (LMP Unknown) SpO2 96% BMI 33.03 kg/m? Social History Tobacco Use - Smoking status: Current Every Day Smoker Packs/day: 0.50 Types: Cigarettes - Smokeless tobacco: Never Used Vaping Use - Vaping Use: Former Substance Use Topics - Alcohol use: Not Currently Comment: sober since 09/11/2018 - Drug use: Not Currently Types: Marijuana, Cocaine, Heroin, IV PAST MEDICAL HISTORY Diagnosis Date - Anemia - Asthma - Chlamydia 12/2019 - Drug use affecting 09/21/2018 03/17/20-Denies any use since 02/21 and in Outpatient treatment through [facility]. States she wants to remain sober. Corina Conteh APRN.CNM Pt with history of polysubstance abuse, does not have custody of her other children Most recently tested positive for subutex, cocaine 02/22 and did admit then to use on 02/21 Now in [facility] Aware she will have CSB case with this baby State - History of hemorrhage, currently 09/21/2018 01/04/20-No hemabate at delivery, history of asthma. Corina Conteh APRN.CNM - History of pre-eclampsia in prior , currently - Polysubstance abuse (HCC) - hemorrhage - Rh negative state in antepartum period - Smoker I have confirmed and edited as necessary, the [facility] Review of Systems Constitutional: Negative for chills and fever. Respiratory: Positive for cough and wheezing. Musculoskeletal: Negative for joint pain and myalgias. Skin: Negative for itching and rash. All other systems reviewed and are negative. Objective Physical Exam Vitals and nursing note reviewed. HENT: Head: Normocephalic and atraumatic. Right Ear: Tympanic membrane, ear canal and external ear normal. Left Ear: Tympanic membrane and ear canal normal. Mouth/Throat: Pharynx: Uvula midline. Pulmonary: Effort: No respiratory distress. Breath sounds: Examination of the right-middle field reveals wheezing. Examination of the right-lower field reveals wheezing. Wheezing present. No rhonchi or rales. Lymphadenopathy: Head: Right side of head: No submental, submandibular or tonsillar adenopathy. Left side of head: No submental, submandibular or tonsillar adenopathy. Cervical: No cervical adenopathy. Skin: General: Skin is warm and dry. Neurological: Mental Status: She is alert. Psychiatric: Mood and Affect: Affect normal. ASSESSMENT/PLAN: 1. Moderate persistent asthma with (acute) exacerbation - ICD9: 493.92, ICD10: J45.41 (primary diagnosis) Prednisone burst Continue inhalers Red flags given 2. Upper respiratory symptom - ICD9: 786.9, ICD10: R09.89 mucinex as suggested Follow up with pcp prn Diagnosis and treatment plan were discussed and questions were answered to the patient's satisfaction. Pt acknowledged understanding of concepts and follow up plan. Specific signs and symptoms that would indicate the need for higher level of care were discussed in detail warranting prompt ER evaluation. Mayela Rodriguez APRN.[employer] [facility] Progress note 01-01-2021 Note Date & Type Note Facility 01-01-2021 Note HNO ID: [id number] Author: Mayela Rodriguez APRN.[employer] Service: ? Author Type: Nurse Practitioner Type: Progress Notes Filed: 01/01/2021 10:16 AM Note Text: Subjective HPI HPI Josi Briones is a 30 year old female who presents today for CC of right eye redness and discharge. This started about 3 days ago and is worsening. She denies any loss of vision or pain in eye. No known foreign body. No known exposure BP 108/80 Pulse 83 Temp 36.6 ?C (97.9 ?F) (Left Tympanic) Resp 16 Wt 89.7 kg (197 lb 12.8 oz) LMP (LMP Unknown) BMI 36.18 kg/m? Social History Tobacco Use - Smoking status: Current Every Day Smoker Packs/day: 0.50 Types: Cigarettes - Smokeless tobacco: Never Used Vaping Use - Vaping Use: Former Substance Use Topics - Alcohol use: Not Currently Comment: sober since 09/11/2018 - Drug use: Not Currently Types: Marijuana, Cocaine, Heroin, IV PAST MEDICAL HISTORY Diagnosis Date - Anemia - Asthma - Chlamydia 12/2019 - Drug use affecting 09/21/2018 03/17/20-Denies any use since 02/21 and in Outpatient treatment through [facility]. States she wants to remain sober. Corina Conteh APRN.CNM Pt with history of polysubstance abuse, does not have custody of her other children Most recently tested positive for subutex, cocaine 02/22 and did admit then to use on 02/21 Now in [facility] Aware she will have CSB case with this baby State - History of hemorrhage, currently 09/21/2018 01/04/20-No hemabate at delivery, history of asthma. Corina Conteh APRN.CNM - History of pre-eclampsia in prior , currently - Polysubstance abuse (HCC) - hemorrhage - Rh negative state in antepartum period - Smoker I have confirmed and edited as necessary, the [facility] Review of Systems Constitutional: Negative for chills and fever. HENT: Negative for congestion, ear pain, sinus pain and sore throat. Eyes: Positive for discharge and redness. Respiratory: Negative for cough, sputum production, shortness of breath and wheezing. Cardiovascular: Negative for chest pain. Musculoskeletal: Negative for myalgias. Neurological: Negative for headaches. Objective Physical Exam Vitals and nursing note reviewed. Eyes: General: Lids are normal. Lids are everted, no foreign bodies appreciated. Conjunctiva/sclera: Right eye: Right conjunctiva is injected. Exudate (green) present. Left eye: Left conjunctiva is not injected. No exudate. Comments: Globes are firm but not hard. Upper and lower lids were everted. There is no evidence of injury or foreign material. No hyphema is present. There is no evidence of periorbital cellulitis. There are no temporal, pulsatile masses. Cardiovascular: Rate and Rhythm: Normal rate and regular rhythm. Heart sounds: Normal heart sounds. Pulmonary: Effort: Pulmonary effort is normal. Breath sounds: Normal breath sounds. Skin: General: Skin is warm and dry. Neurological: Mental Status: She is alert and oriented to person, place, and time. Psychiatric: Mood and Affect: Affect normal. ASSESSMENT/PLAN: 1. Eye irritation - ICD9: 379.99, ICD10: H57.89 Appears to be acute conjunctivitis right eye Drops as ordered Follow up with public health aide prn Red flags given Diagnosis and treatment plan were discussed and questions were answered to the patient's satisfaction. Pt acknowledged understanding of concepts and follow up plan. Specific signs and symptoms that would indicate the need for higher level of care were discussed in detail warranting prompt ER evaluation. Mayela Rodriguez APRN.[employer] [facility] Progress note 12-04-2020 Note Date & Type Note Facility 12-04-2020 Note HNO ID: [id number] Author: Baudilio Fernandez MD Service: ? Author Type: Physician Type: Progress Notes Filed: 12/04/2020 12:14 PM Note Text: Patient presents with: Exposure: covid test, exposure HPI: Her son's daycare provider tested positive for COVID-19 3 days ago. She spent time in the daycare last week interacting with the children. She and her 6-month-old son had diarrhea since last week. Positive symptoms: Diarrhea, baseline wheezing, Negative symptoms: Denies fever, chills, malaise, headache, nasal congestion, rhinorrhea, sore throat, cough, shortness of breath, nausea, vomiting, loss of taste or smell. She had Covid disease in October 2019. She has not had Covid vaccination. PAST MEDICAL HISTORY Diagnosis Date - Anemia - Asthma - Chlamydia 12/2019 - Drug use affecting 09/21/2018 03/17/20-Denies any use since 02/21 and in Outpatient treatment through [facility]. States she wants to remain sober. Corina Conteh APRN.CNM Pt with history of polysubstance abuse, does not have custody of her other children Most recently tested positive for subutex, cocaine 02/22 and did admit then to use on 02/21 Now in [facility] Aware she will have CSB case with this baby State - History of hemorrhage, currently 09/21/2018 01/04/20-No hemabate at delivery, history of asthma. Corina Conteh APRN.CNM - History of pre-eclampsia in prior , currently - Polysubstance abuse (HCC) - hemorrhage - Rh negative state in antepartum period - Smoker MEDICATIONS: Current Outpatient Medications Medication Sig - L-Norgest and E Estradiol-E Estrad (SEASONIQUE) 0.15 mg-30 mcg (84)/10 mcg (7) Take 1 tablet by mouth once daily. - gabapentin (NEURONTIN) 300 mg capsule Take by mouth twice daily. Patient unsure of dosing - Lactobacillus acidophilus (FLORAJEN) 460 mg (20 billion cell) cap Take 1 capsule by mouth once daily. - fluticasone (FLONASE) 50 mcg/actuation nasal spray use 2 (TWO) sprays IN EACH NOSTRIL DAILY - hydrocortisone 2.5 % cream Apply to affected area twice daily. - Food Supplement, Lactose-Free (ENSURE CLEAR) liqd Take 237 mL by mouth three times daily with meals. - lamotrigine (LAMICTAL ORAL) Take by mouth. - citalopram hydrobromide (CELEXA) 10 mg tablet Take 10 mg by mouth once daily. - MEDICATION, NON-DATABASE HAIR GLOW (hair vitamin) - estrogens conjugated (PREMARIN) 1.25 mg tablet Take 1 tablet by mouth once daily for 7 days. Current Facility-Administered Medications Medication Dose Route Frequency - albuterol HFA 90 mcg/actuation 2 Puff (PROVENTIL HFA, VENTOLIN HFA) 2 Puff INHALATION q 6 H PRN ALLERGIES: ALLERGIES Allergen Reactions - Shellfish Derived Swelling, Shortness of Breath - Latex Other: See Comments Mother has told patient she gets red and puffy when she is exposed to Latex - Seasonal Allergies Other: See Comments - Tylenol [Acetaminop* Rash, Shortness of Breath VITALS: BP 122/78 Pulse 96 Temp 36.9 ?C (98.4 ?F) Resp 18 Wt 88.5 kg (195 lb) LMP (LMP Unknown) SpO2 95% BMI 35.67 kg/m? PHYSICAL EXAM: GEN: Pleasant, in no acute distress. HEENT: PERRL, EOMI, conjunctiva clear Neck: supple, no thyromegaly, no lymphadenopathy HEART: regular rate and rhythm, no murmurs LUNGS: clear to auscultation, no wheezes or crackles, no increased WOB ASSESSMENT/PLAN: 1. Exposure to confirmed case of COVID-19 - ICD9: , ICD10: Z20.822 (primary diagnosis) 2. Diarrhea, unspecified type - ICD9: 787.91, ICD10: R19.7 Reduced risk for re-infection, but high-risk contact with COVID should still quarantine. - ASYMPTOMATIC ELECTIVE COVID-19 requested today. Baudilio Fernandez MD [facility] Progress note 09-07-2020 Note Date & Type Note Facility 09-07-2020 Note HNO ID: [id number] Author: Lucinda Garcia APRN.CNM Service: ? Author Type: Platinum Smith Type: Progress Notes Filed: 09/07/2020 4:38 PM Note Text: 29 year old who presents with complaints of heavy and irregular bleeding. Stated has not stopped bleeding vaginally since delivery on 05/31/20. Currently noticing dark brown, black fluid coming out. Denies any vaginal itching, odor or discharge. Patient has tried douching to clean herself out . Tired of wearing pads and tampons. LMP: Has not had a period since delivery on 05/31/20. She received Depo injection on 06/28/20 and bilateral tubal ligation in 07/2120. She reports never has stopped bleeding since delivery. Heavy bleeding? Not currently Intermenstrual bleeding/spotting? Has not had period since before Sexually active: No History of STDS: chlamydia Patient concerns for STD exposure: No. Pain with intercourse: No Postcoital bleeding: No Last Pap: 2019 normal HPV: negative History of abnormal pap: No PAST MEDICAL HISTORY Diagnosis Date - Anemia - Asthma - Chlamydia 12/2019 - Drug use affecting 09/21/2018 03/17/20-Denies any use since 02/21 and in Outpatient treatment through [facility]. States she wants to remain sober. Corina Conteh APRN.CNM Pt with history of polysubstance abuse, does not have custody of her other children Most recently tested positive for subutex, cocaine 02/22 and did admit then to use on 02/21 Now in [facility] Aware she will have CSB case with this baby State - History of hemorrhage, currently 09/21/2018 01/04/20-No hemabate at delivery, history of asthma. Corina Conteh APRN.ANTONIAM - History of pre-eclampsia in prior , currently - Polysubstance abuse (HCC) - hemorrhage - Rh negative state in antepartum period - Smoker PAST SURGICAL HISTORY Procedure Laterality Date - SALPINGECTOMY Bilateral 08/03/2020 Laparoscopic B/L Salpingectomy at [facility]-Dr. Jacobsen FAMILY HISTORY Problem Relation Age of Onset - No Known Problems Mother - No Known Problems Father - No Known Problems Brother - No Known Problems Paternal Grandmother - No Known Problems Paternal Grandfather - No Known Problems Brother - No Known Problems Brother - No Known Problems Brother - No Known Problems Brother - No Known Problems Brother - No Known Problems Brother - No Known Problems Brother - Allergies Son - No Known Problems Son - No Known Problems Daughter SOCIAL HISTORY Social History Tobacco Use - Smoking status: Current Every Day Smoker Packs/day: 0.50 Types: Cigarettes - Smokeless tobacco: Never Used Vaping Use - Vaping Use: Former Substance Use Topics - Alcohol use: Not Currently Comment: sober since 09/11/2018 - Drug use: Not Currently Types: Marijuana, Cocaine, Heroin, IV REVIEW OF SYSTEMS Weight gain Reports gaining 12 lbs since receiving DEPO injection. Abdomen: No abdominal pain, nausea, vomiting, diarrhea, or constipation. No bloating, early satiety, indigestion, or increased flatulence. Bladder: No dysuria, gross hematuria, urinary frequency, urinary urgency, or incontinence. EXAM: BP 98/60 Wt 187 lb (84.8kg) GENERAL: pleasant and upset, female in mild distress HEENT: Normocephalic, atraumatic, mucus membranes moist and no lesions NECK: Supple and full range of motion DERMATOLOGY: Normal CHEST: Clear to auscultation and Normal inspiratory effort ABDOMEN: soft and non-tender PELVIC: external genitalia normal, normal Bartholin's glands, urethra, [place]'s glands, no vulvar lesions, no cervical lesions, good vaginal support, normal appearing perineal body and perianal region, Moderate amount of dark brown old blood present in vaginal vault. No active bleeding from cervix. BIMANUAL: uterus normal size, shape and consistency, no adnexal masses, non-tender and no cervical motion tenderness RECTOVAGINAL: deferred. NEURO: alert and oriented x3,exam grossly non-focal EXTREMITIES: normal ASSESSMENT/PLAN: 1. Complaint of vaginal bleeding - ICD9: 623.8, ICD10: N93.9 (primary diagnosis) - Discussed spotting common with Depo injection. - Patient thought she had uterus removed when had tubal ligation. Educated on tubal ligation and continuation of menstrual cycles. - Patient not to douche- allow body to get rid of old blood in vagina. 2. control counseling - ICD9: V25.09, ICD10: Z30.09 - Requesting OCP to help control bleeding and periods R/B/A discussed. Patient notified to report any s/s ACHES . Patient voices understanding and requests OCP. - RX sent for Seasonique RTO- 3 months for follow up or sooner if continues to bleed Lucinda Garcia APRN.ALANNA Medical Decision Making: Problems: Moderate: New problem with uncertain prognosis Data: Unique source(s) for external note(s) reviewed: 2 Unique test result(s) reviewed: 2 Unique test(s) ordered: (more content not included)... [facility] Progress note 07-24-2020 Note Date & Type Note Facility 07-24-2020 Note HNO ID: [id number] Author: Corina Conteh Service: ? Author Type: Platinum Smith Type: Progress Notes Filed: 07/25/2020 9:16 AM Note Text: VISIT Josi Briones is a 29 year old year old here for visit. Delivery Summary: on 05/31/20 by Corina Conteh APRN, CNM. Male [place] 7lb 7oz. ROS/ Recovery: Feeding: Bottle feeding problems: N/A Menses since delivery: None Menstrual pattern prior to : Regular periods Pony since delivery: Resumed Having some vaginal discharge and odor. Unsure if partner has other partners, would like STD testing. Depo give on 06/27/20 Depression: admits to symptoms of depression. (Lines 3 AND 4 applicable if either Lines 1 or 2 are positive) 1. Over the past 2 weeks have you felt down, depressed, or hopeless? Positive - Further Testing Indicated 2. Over the past two weeks, have you felt little interest or pleasure in doing things? Positive - Further Testing Indicated 3. Have you had thoughts of harming yourself or others? Never 4. [place] Depression Scale (EPDS) Total Score: 10 History of PTSD-Taking Celexa Bipolar-Lamictal Rust for management of medication and recent dose adjustments. Children services and 180 for drug testing twice a week. Working well with case fitter. Emotional support: Yes Bowel symptoms: Negative for abdominal discomfort, blood in stools or black stools and change in bowel habits Abdomen: N/A Bladder symptoms: Burning sometimes when she urinates. Other issues: Depression Last Pap: 2019 normal HPV: N/A PAST MEDICAL HISTORY Diagnosis Date - Anemia - Asthma - Chlamydia 12/2019 - History of pre-eclampsia in prior , currently - Polysubstance abuse (HCC) - hemorrhage - Rh negative state in antepartum period - Smoker No past surgical history on file. FAMILY HISTORY Problem Relation Age of Onset - No Known Problems Mother - No Known Problems Father - No Known Problems Brother - No Known Problems Paternal Grandmother - No Known Problems Paternal Grandfather - No Known Problems Brother - No Known Problems Brother - No Known Problems Brother - No Known Problems Brother - No Known Problems Brother - No Known Problems Brother - No Known Problems Brother - Allergies Son - No Known Problems Son - No Known Problems Daughter Social History Tobacco Use - Smoking status: Current Every Day Smoker Packs/day: 0.50 Types: Cigarettes - Smokeless tobacco: Never Used Substance Use Topics - Alcohol use: Not Currently Comment: sober since 09/11/2018 - Drug use: Not Currently Types: Marijuana, Cocaine, Heroin, IV PHYSICAL EXAMINATION: BP 120/74 Wt 178 lb (80.7kg) GENERAL: pleasant, female in no apparent distress HEENT: Normocephalic, atraumatic, mucus membranes moist and no lesions NECK: Supple, full range of motion, no adenopathy and thyroid normal DERMATOLOGY: Normal, without lesions, non-icteric and non-hirsute BREAST: soft, non-tender, symmetric, no dominant mass, normal nipple-areolar complex, no lymphadenopathy and no nipple discharge CHEST: Clear to auscultation, Normal inspiratory effort, Regular rate and rhythm and No murmurs, clicks, rubs or gallops ABDOMEN: soft, non-tender and no masses. PELVIC: external genitalia normal, normal Bartholin's glands, urethra, [place]ather Sound's glands, no vulvar lesions, no cervical lesions, good vaginal support, physiologic discharge present, normal appearing perineal body and perianal region BIMANUAL: uterus normal size, shape and consistency, no adnexal masses and non-tender NEURO: alert and oriented x3,exam grossly non-focal EXTREMITIES: normal ASSESSMENT AND PLAN: 29 year old status post with normal course. Contraception plan: tubal ligation Reviewed risks vs benefits of tubal ligation. Patient thought possibly Mirena as she might want to be a surrogate. Reviewed with patient her history and if this was the best decision for herself, family, and children. Offered Mirena IUD or other control options. She declines Mirena and other options. She would like to proceed with Tubal ligation. Follow up: Preop appointment with on 07/26/20 at 7am. Tubal ligation scheduled on 08/03/20. Corina Conteh APRN.CNM [facility] Progress note 06-28-2020 Note Date & Type Note Facility 06-28-2020 Note HNO ID: [id number] Author: Lynne Sauceda RN Service: ? Author Type: ? Type: Progress Notes Filed: 06/28/2020 3:28 PM Note Text: Patient identified by name and date of . Josi Briones is here for a Depo Provera injection. Patient brought medication. Date last injected: first injection - negative test. Depo-Provera, 150 mg, administered IM right upper quadrant gluteus, Lot # [id number], expiration date 10/2021. Depo-Provera was given without incident. Date of last menses: No LMP recorded (lmp unknown). Patient is . Irregular bleeding - No Menses ceased - No STD prevention discussed: Yes Patient instructed to return to clinic on 12 weeks if tubal ligation not done by then. [email or web address] Provider Corina Conteh APRN.CNM was present in office at time of injection. Lynne Sauceda RN [facility] Progress note 06-27-2020 Note Date & Type Note Facility 06-27-2020 Note HNO ID: [id number] Author: Corina Conteh Service: ? Author Type: Platinum Smith Type: Progress Notes Filed: 06/27/2020 4:59 PM Note Text: Josi Briones is a 29 year old female who presents for problem visit for vaginal odor. HPI: Here today with complaint of odor that started one week ago. No pain. Delivered on 05/31/20. Bleeding stopped around three weeks and then returned. Had intercourse once, withdrawal and used plan B. Patient denies any excessive vaginal bleeding, or pelvic pain. No new partners. States she is doing well, weaning from breast-feeding but continues at this time. She is not currently taking anything for maintenance therapy for history of drug use but she is doing well. CPS involved and patient states it has gone well and they are just there to help make sure baby is safe. She denies any depression. She has enjoyed caring for her baby. PAST MEDICAL HISTORY Diagnosis Date - Anemia - Asthma - Chlamydia 12/2019 - History of pre-eclampsia in prior , currently - Polysubstance abuse (HCC) - hemorrhage - Rh negative state in antepartum period - Smoker No past surgical history on file. FAMILY HISTORY Problem Relation Age of Onset - No Known Problems Mother - No Known Problems Father - No Known Problems Brother - No Known Problems Paternal Grandmother - No Known Problems Paternal Grandfather - No Known Problems Brother - No Known Problems Brother - No Known Problems Brother - No Known Problems Brother - No Known Problems Brother - No Known Problems Brother - No Known Problems Brother - Allergies Son - No Known Problems Son - No Known Problems Daughter Social History Tobacco Use - Smoking status: Current Every Day Smoker Packs/day: 0.50 Types: Cigarettes - Smokeless tobacco: Never Used Substance Use Topics - Alcohol use: Not Currently Comment: sober since 09/11/2018 - Drug use: Not Currently Types: Marijuana, Cocaine, Heroin, IV Current Outpatient Medications Medication Sig - lamotrigine (LAMICTAL ORAL) Take by mouth. - citalopram hydrobromide (CELEXA) 10 mg tablet Take 10 mg by mouth once daily. - Cvuiiofh-Mv-Tqd-Fe-FA ( VITAMIN) tab Take 1 tablet by mouth once daily. - fluticasone (FLONASE) 50 mcg/actuation nasal spray use 2 (TWO) sprays IN EACH NOSTRIL DAILY - famotidine (PEPCID) 20 mg tablet Take 1 tablet by mouth twice daily as needed (heartburn). - cetirizine (ZYRTEC) 10 mg tablet Take 1 tablet by mouth once daily. - hydrocortisone 2.5 % cream Apply to affected area twice daily. - guaiFENesin-dextromethorphan (TUSSIN DM COUGH AND CHEST) 100-10 mg/5 mL syrup Take 5 mL by mouth three times daily as needed for Cough. - docusate sodium (COLACE) 100 mg capsule Take 1 capsule by mouth twice daily. - Food Supplement, Lactose-Free (ENSURE CLEAR) liqd Take 237 mL by mouth three times daily with meals. - melatonin 10 mg cap Take 1 capsule by mouth once daily. - polyethylene glycol 3350 (MIRALAX, GLYCOLAX) 17 gram packet Take 1 Packet by mouth once daily. - MEDICATION, NON-DATABASE HAIR GLOW (hair vitamin) - polyethylene glycol 3350 (MIRALAX, GLYCOLAX) 17 gram packet Take 1 Packet by mouth once daily. Current Facility-Administered Medications Medication Dose Route Frequency - albuterol HFA 90 mcg/actuation 2 Puff (PROVENTIL HFA, VENTOLIN HFA) 2 Puff INHALATION q 6 H PRN Allergies As of Date: 06/27/2020 Allergen Noted Reaction SHELLFISH DERIVED 09/21/2018 Swelling and Shortness of Breath LATEX 09/21/2018 Other: See Comments SEASONAL ALLERGIES 09/21/2018 Other: See Comments TYLENOL [ACETAMINOPHEN] 09/21/2018 Rash and Shortness of Breath Fully Assessed 06/27/2020 REVIEW OF SYSTEMS Abdomen: No bloating, early satiety, indigestion, or increased flatulence. No abdominal pain, nausea, vomiting, diarrhea, or constipation. Bladder: No dysuria, gross hematuria, urinary frequency, urinary urgency, or incontinence. Breast: No breast lumps, nipple d/c, overlying skin changes, redness or skin retraction. Expanded ROS: N/A Allergies and current medication updated:Yes EXAM: BP 108/70 Wt 176 lb (79.8kg) GENERAL: pleasant, female in no apparent distress HEENT: Normocephalic and atraumatic NECK: Supple and full range of motion DERMATOLOGY: Normal and without lesions CHEST: Normal inspiratory effort ABDOMEN: soft, non-tender and no masses PELVIC: external genitalia normal, normal Bartholin's glands, urethra, [place]'s glands, no vulvar lesions, no cervical lesions, good vaginal support, small amount of lochia alba discharge present, normal appearing perineal body and perianal region. Slight odor. BIMANUAL: uterus normal size, shape and consistency, no adnexal masses and non-tender. No CMT NEURO: alert and oriented x3,exam grossly non-focal EXTREMITIES: normal ASSESSMENT AND PLAN: 1. Vaginal odor - ICD9: 625.8, ICD10: N89.8 (prima (more content not included)... [facility] Summary Purpose Family History No Family History Records FoundNo Family History Records FoundNo Family History Records FoundNo Family History Records FoundNo Family History Records Found Advance Directives No Advanced Directives Records FoundLatest Code Status on File Code Status Date Activated Date Inactivated Comments Full Code 10/21/2019 11:33 PM Full Code 09/11/2018 9:23 PM 09/14/2018 4:26 PM Latest Code Status on File Code Status Date Activated Date Inactivated Comments Full Code 02/24/2020 2:38 AM Full Code 10/21/2019 11:33 PM 10/25/2019 8:57 PM Assessments Diagnosis Opiate abuse, continuous (HCC) Opioid abuse, continuous Diagnosis Severe opioid use disorder, in sustained remission (HCC) Opioid withdrawal (HCC) Drug withdrawal Drug use affecting in first trimester Diagnosis Intravenous drug use during in second trimester Substance abuse affecting , antepartum Hospital Course Note Attestation signed by Carla Leslie MD at 02/24/2020 2:14 PM M Patient seen today and agree with plan by the resident. Reviewed her ultrasound also today. cares is recommended Carla Leslie Department of Obstetrics and Gynecology Antepartum Discharge Summary Admission on 02/23/2020 8:29 PM Reason for admission: Substance abuse Antepartum Course: This is a 29 y.o. female at 25w0d who was admitted for substance abuse. Patient was using $20 of crack cocaine daily, THC and suboxone one time prior to arrival to triage. UDS was positive for cocaine and buprenorphine. Urine alcohol was negative. ADM evaluated patient who did not recommend any additional treatment. TVUS was obtained and results showed stafford live intrautine at 25w 0d, normal anatomy, biometry consistent with clinically establi (more content not included)... Discharge Instructions * Instructions* Alistair Toussaint DO - 10/25/2019 Follow up appointment with your doctor/singing teacher - Call primary FOOD AND BEVERAGE ASSISTANT MANAGER office to be seen for prenatalcare soon as possible Activity - Normal Activity Call your doctor/singing teacher if you have: - leaking fluid - vaginal bleeding - regular contractions: More than 6 contractions in one hour - decreased movement - worsening abdominal (belly) pain - headache, blurry vision, increased swelling, upper abdominal pain If you are going home with contractions that are uncomfortable/painful- we recommend these coping strategies: rhythmic breathing, hydrotherapy, imagery or visualization, gentle massage, walking and changing your position. Treatment Verification: Josi Briones was assessed on Labor and Delivery for a relatedvisit on 10/25/19. Alistair Toussaint DO [facility] If you are Covid-19 positive or a Person Under Investigation (PUI): If you are in labor and you have, or think you may have COVID-19, call your OB care provider and the hospital birthing unit before you go, so the staff can properly prepare and protect you, your babyand others from being infected. Wear a mask when you leave your home, as you will be asked to continue to wear a mask during your time in the hospital. Prevention steps for People with confirmed or suspected COVID-19 (including persons under investigation) who do not need to be hospitalized and People with confirmed COVID-19 who were hospitalized and determined to be medically stable to go home Your healthcare provider and public health staff will evaluate whe ther you can be cared for at home. If it is determined that you do not need to be hospitalized and can be isolated at home, you willbe monitored by staff from your local or state health department. You should follow the prevention steps below until a healthcare provider or local or state health department says you can return to your normal activities. Stay home except to get medical care People who are mildly ill with COVID-19 are able to isolate at home during their illness. You should restrict activities outside your home, except for getting medical care. Do not go to work, school,or public areas. Avoid using public transportation, ride-sharing, or taxis. Separate yourself from other people and animals in your home People: As much as possible, you should stay in a specific room and away from other people in your home. Also, you should use a separate bathroom, if available. Animals: You should restrict contact with pets and other animals while you are sick with COVID-19, just like you would around other people. Although there have not been reports of pets or other animals becoming sick with COVID-19, it is still recommended that people sick with COVID-19 limit contactwith animals until more information is known about the virus. When possible, have another member ofyour household care for your animals while you are sick. If you are sick with COVID-19, avoid contact with your pet, including petting, snuggling, being kissed or licked, and sharing food. If you must care for your pet or be around animals while you are sick, wash your hands before and after you interact with pets and wear a facemask. Call ahead before visiting your doctor If you have a medical appointment, call the healthcare provider and tell them that you have or may have COVID-19. This will help the healthcare provider's office take steps to keep other people from getting infected or exposed. Wear a facemask You should wear a facemask when you are around other people (e.g., sharing a room or vehicle) or pets and before you enter a healthcare provider's office. If you are not able to wear a facemask (for example, because it causes trouble breathing), then people who live with you should not stay in the same room with you, or they should wear a facemask if they enter your room. Cover your coughs and sneezes Cover your mouth and nose with a tissue when you cough or sneeze. Throw used tissues in a lined trash can. Immediately wash your hands with soap and water for at least 20 seconds or, if soap and water are not available, clean your hands with an alcohol-based hand marketing engineer that contains at least 60% alcohol. Clean your hands often Wash your hands often with soap and water for at least 20 seconds, especially after blowing your nose, coughing, or sneezing; going to the bathroom; and before eating or preparing food. If soap and water are not readily available, use an alcohol-based hand marketing engineer with at least 60% alcohol, covering all surfaces of your hands and rubbing them together until they feel dry. Soap and water are the best option if hands are visibly dirty. Avoid touching your eyes, nose, and mouth with unwashed hands. Avoid sharing personal household items You should not share dishes, drinking glasses, cups, eating utensils, towels, or bedding with otherpeople or pets in your home. After using these items, they should be washed thoroughly with soap and water. Clean all high-touch surfaces everyday High touch surfaces include counters, tabletops, doorknobs, bathroom fixtures, toilets, phones, keyboards, tablets, and bedside tables. Also, clean any surfaces that may have blood, stool, or body fluids on them. Use a household cleaning spray or wipe, according to the label instructions. Labels contain instructions for safe and effective use of the cleaning product including precautions you should take when applying the product, such as wearing gloves and making sure you have good ventilation during use of the product. Monitor your symptoms Seek prompt medical attention if your illness is worsening (e.g., difficulty breathing). Before seeking care, call your healthcare provider and tell them that you have, or are being evaluated for, COVID-19. Put on a facemask before you enter the facility. These steps will help the healthcare provider's office to keep other people in the office or waiting room from getting infected or exposed. Askyour healthcare provider to call the local or [facility] health department. Persons who are placed underactive monitoring or facilitated self- monitoring should follow instructions provided by their localhealth department or occupational health professionals, as appropriate. When working with your local health department check their available hours. If you have a medical emergency and need to call 911, notify the dispatch personnel that you have, or are being evaluated for COVID-19. If possible, put on a facemask before emergency medical services arrive. Discontinuing home isolation Patients with confirmed COVID-19 should remain under home isolation precautions until the risk of secondary transmission to others is thought to be low. The decision to discontinue home isolation precautions should be made on a [id number] basis, in consultation with healthcare providers and [facility] health [facility]. Information on Covid-19 for all patients Call your provider before your next appointment if you develop any of the following symptoms: fever, cough, fatigue, anorexia, shortness of breath, sputum production, and muscle pains. Headache, confusion, rhinorrhea, sore throat, hemoptysis, vomiting, and diarrhea have been reported but are less common. Some persons with COVID-19 have experienced gastrointestinal symptoms such as diarrhea and nausea prior to developing fever and lower respiratory tract signs and symptoms. Ways to [place] with Anxiety & Stress It is normal to feel anxious or worried about COVID-19. You might feel sad about canceling celebrations and staying away from family and friends. Keep in mind that most people do not get severely ill from COVID-19. It is important to have a planin case you get sick to prevent spreading the disease to others including an Advanced Care Plan (communicating and documenting your desired health care plan with family and healthcare team). You can take care of yourself by: ? Taking a break from watching the news ? Take deep breaths, stretch or meditate ? Getting exercise, eating healthy foods, and drinking plenty of water ? Finding activities you can enjoy inside your home ? Staying in touch with your family and friends. Tell your partner, family, and friends how you arefeeling. Advance Care Planning People with COVID-19 may have no symptoms, mild symptoms, such as fever, cough, and shortness of breath or they may have more severe illness, developing severe and fatal pneumonia. As a result, Advance Care Planning with attention to naming a health care decision maker (someone you trust to make healthcare decisions for you if you could not speak for yourself) and sharing other health care preferences is important BEFORE a possible health crisis. Please contact your Primary Care Provider to discuss Advance Care Planning. Learning About Coronavirus (COVID-19) Coronavirus (COVID-19): Overview What is coronavirus (COVID-19)? The coronavirus disease (COVID-19) is caused by a virus. It is an illness that was first found in [facility], in April 2019. It has since spread worldwide. The virus can cause fever, cough, and trouble breathing. In severe cases, it can cause pneumonia and make it hard to breathe without help. It can cause . Coronaviruses are a large group of viruses. They cause the common cold. They also cause more serious illnesses like [place] respiratory syndrome (MERS) and severe acute respiratory syndrome (SARS). COVID-19 is caused by a novel coronavirus. That means it's a new type that has not been seen in people before. This virus spreads [id number] through droplets from coughing and sneezing. It can also spreadwhen you are close to someone who is infected. And it can spread when you touch something that has the virus on it, such as a doorknob or a tabletop. What can you do to protect yourself from coronavirus (COVID-19)? The best way to protect yourself from getting sick is to: Avoid areas where there is an outbreak. Avoid contact with people who may be infected. Wash your hands often with soap or alcohol-based hand sanitizers. Avoid crowds and try to stay at least 6 feet away from other people. Wash your hands often, especially after you cough or sneeze. Use soap and water, and scrub for at least 20 seconds. If soap and water aren't available, use an alcohol-based hand marketing engineer. Call 911 anytime you think you may need emergency care. For example, call if: You have severe trouble breathing. (You can't talk at all.) You have constant chest pain or pressure. You are severely dizzy or lightheaded. You are confused or can't think clearly. Your face and lips have a blue color. You pass out (lose consciousness) or are very hard to wake up. Call your doctor now if you develop symptoms such as: Shortness of breath. Fever. Cough. If you need to get care, call ahead to the doctor's office for instructions before you go. Make sure you wear a face mask, if you have one, to prevent exposing other people to the virus. Where can you get the latest information? The following health organizations are tracking and studying this virus. Their websites contain themost up-to-date information. You'll also learn what to do if you think you may have been exposed tothe virus. U.S. Centers for Disease Control and Prevention (CDC): The CDC provides updated news about the disease and travel advice. The website also tells you how to prevent the spread of infection. www.cdc.gov World Health Organization (WHO): WHO offers information about the virus outbreaks. WHO also has travel advice. www.who.int Current as of: August 11, 2019 Content Version: 12.4 [employer]. Care instructions adapted under license by your healthcare professional. If you have questions about a medical condition or this instruction, always ask your healthcare professional. [employer] disclaims any warranty or liability for your use of this information. General Recommendations for Routine Cleaning and Disinfection of Households Community members can practice routine cleaning of frequently touched surfaces (for example: tables, doorknobs, light switches, handles, desks, toilets, faucets, sinks) with household supervisor webbing and EPA-registered disinfectants that are appropriate for the surface, following label instructions. Labels contain instructions for safe and effective use of the cleaning product including precautions you should take when applying the product, such as wearing gloves and making sure you have good ventilation during use of the product. These guidelines are focused on household settings and are meant for the general public. ? Cleaning refers to the removal of germs, dirt, and impurities from surfaces. Cleaning does not kill germs, but by removing them, it lowers their numbers and the risk of spreading infection. ? Disinfecting refers to using chemicals to kill germs on surfaces. This process does not necessarily clean dirty surfaces or remove germs, but by killing germs on a surface after cleaning, it can further lower the risk of spreading infection. General Recommendations for Cleaning and Disinfection of Households with People Isolated in Home Care - Confirmed or suspected COVID 19 ? Household members should educate themselves about COVID-19 symptoms and preventing the spread of COVID-19 in homes. ? Clean and disinfect high-touch surfaces daily in household common areas (e.g. tables, hard-backedchairs, doorknobs, light switches, remotes, handles, desks, toilets, sinks) o In the bedroom/bathroom dedicated for an ill person: consider reducing cleaning frequency to as-needed (e.g., soiled items and surfaces) to avoid unnecessary contact with the ill person. ? As much as possible, an ill person should stay in a specific room and away from other people in their home. ? The caregiver can provide personal cleaning supplies for an ill person's room and bathroom, unless the room is occupied by child or another person for whom such supplies would not be appropriate. These supplies include tissues, paper towels, supervisor webbing and EPA-registered disinfectants (see list link at [facility] website). ? If a separate bathroom is not available, the bathroom should be cleaned and disinfected after each use by an ill person. If this is not possible, the caregiver should wait as long as practical after use by an ill person to clean and disinfect the high-touch surfaces. How to clean and disinfect: Hard Surfaces ? Wear disposable gloves when cleaning and disinfecting surfaces. Gloves should be discarded after each cleaning. If reusable gloves are used, those gloves should be dedicated for cleaning and disinfection of surfaces for COVID-19 and should not be used for other purposes. Consult the devulcanizer tender's instructions for cleaning and disinfection products used. Clean hands immediately after gloves areremoved. ? If surfaces are dirty, they should be cleaned using a detergent or soap and water prior to disinfection. ? For disinfection, diluted household bleach solutions, alcohol solutions with at least 70% alcohol, and most common EPA-registered household disinfectants should be effective. o Diluted household bleach solutions can be used if appropriate for the surface. Follow devulcanizer tender's instructions for application and proper ventilation. Check to ensure the product is not past itsexpiration date. Never mix household bleach with ammonia or any other cleanser. Unexpired householdbleach will be effective against coronaviruses when properly diluted. ? Prepare a bleach solution by mixing: ? 5 tablespoons (1/3rd cup) bleach per gallon of water or ? 4 teaspoons bleach per quart of water o Products with EPA-approved emerging viral pathogens claimsf iconexternal icon are expected to be effective against COVID-19 based on data for harder to kill viruses. Follow the devulcanizer tender's instructions for all cleaning and disinfection products (e.g., concentration, application method and contact time, etc.). Soft (porous) surfaces such as carpeted floor, rugs, and drapes Remove visible contamination if present and clean with appropriate supervisor webbing indicated for use on these surfaces. After cleaning: Launder items as appropriate in accordance with the devulcanizer tender's instructions. If possible, launder items using the warmest appropriate water setting for the items and dry items completely, or Clothing, towels, linens and other items that go in the laundry ? Wear disposable gloves when handling dirty laundry from an ill person and then discard after eachuse. If using reusable gloves, those gloves should be dedicated for cleaning and disinfection of surfaces for COVID-19 and should not be used for other household purposes. Clean hands immediately after gloves are removed. o If no gloves are used when handling dirty laundry, be sure to wash hands afterwards. o If possible, do not shake dirty laundry. This will minimize the possibility of dispersing virus through the air. o Launder items as appropriate in accordance with the devulcanizer tender's instructions. If possible, launder items using the warmest appropriate water setting for the items and dry items completely. Dirtylaundry from an ill person can be washed with other people's items. o Clean and disinfect clothes hampers according to guidance above for surfaces. If possible, consider placing a station baggage agent that is either disposable (can be thrown away) or can be laundered. CDC has a list of EPA approved cleaning products on their website - https://www.cdc.gov/coronavirus/ 2019-ncov/community/home/cleaning-disinfection.html https://www.[employer].Vibby/Zsbra-Rnonldjmyna-Hpmzeuug-Products-List.pdf [employer] with delivery and sweet pickle maker services: [employer]: Free sweet pickle maker at locations Delivery is $12.95 a month Website - [employer] [place]: Agency Service Representative $2.95 (1st order is free) Delivery is $14.95 Website [employer] [place]: business support specialist is free Delivery is $5.95 Website - [employer]: business support specialist is $4.95 Delivery is $9.95 Website [employer]: business support specialist is $4.95 Delivery is $9.95 Website [employer]: Can be ordered for delivery and sweet pickle maker with [employer] Website - [employer]: Free deliver for first 3 orders of $35 or more Website [employer]iki Will deliver from [facility], [facility], [employer], and [employer]. Annual membership is $99 Monthly membership is $14 hilliard documented in this encounter* Instructions* Tierra Cuellar MD - 02/24/2020 Follow up appointment with your doctor/singing teacher - Keep next scheduled appointment Activity - Normal Activity Call your doctor/singing teacher if you have: - leaking fluid - vaginal bleeding - regular contractions: More than 6 contractions in one hour - decreased movement - worsening abdominal (belly) pain - headache, blurry vision, increased swelling, upper abdominal pain If you are going home with contractions that are uncomfortable/painful- we recommend these coping strategies: rhythmic breathing, hydrotherapy, imagery or visualization, gentle massage, walking and changing your position. Treatment Verification: Josi Briones was assessed on Labor and Delivery for a relatedvisit on 02/24/20. Tierar Cuellar MD [facility] If you are Covid-19 positive or a Person Under Investigation (PUI): If you are in labor and you have, or think you may have COVID-19, call your OB care provider and the hospital birthing unit before you go, so the staff can properly prepare and protect you, your babyand others from being infected. Wear a mask when you leave your home, as you will be asked to continue to wear a mask during your time in the hospital. Prevention steps for People with confirmed or suspected COVID-19 (including persons under investigation) who do not need to be hospitalized and People with confirmed COVID-19 who were hospitalized and determined to be medically stable to go home Your healthcare provider and public health staff will evaluate whe ther you can be cared for at home. If it is determined that you do not need to be hospitalized and can be isolated at home, you willbe monitored by staff from your local or state health department. You should follow the prevention steps below until a healthcare provider or local or state health department says you can return to your normal activities. Stay home except to get medical care People who are mildly ill with COVID-19 are able to isolate at home during their illness. You should restrict activities outside your home, except for getting medical care. Do not go to work, school,or public areas. Avoid using public transportation, ride-sharing, or taxis. Separate yourself from other people and animals in your home People: As much as possible, you should stay in a specific room and away from other people in your home. Also, you should use a separate bathroom, if available. Animals: You should restrict contact with pets and other animals while you are sick with COVID-19, just like you would around other people. Although there have not been reports of pets or other animals becoming sick with COVID-19, it is still recommended that people sick with COVID-19 limit contactwith animals until more information is known about the virus. When possible, have another member ofyour household care for your animals while you are sick. If you are sick with COVID-19, avoid contact with your pet, including petting, snuggling, being kissed or licked, and sharing food. If you must care for your pet or be around animals while you are sick, wash your hands before and after you interact with pets and wear a facemask. Call ahead before visiting your doctor If you have a medical appointment, call the healthcare provider and tell them that you have or may have COVID-19. This will help the healthcare provider's office take steps to keep other people from getting infected or exposed. Wear a facemask You should wear a facemask when you are around other people (e.g., sharing a room or vehicle) or pets and before you enter a healthcare provider's office. If you are not able to wear a facemask (for example, because it causes trouble breathing), then people who live with you should not stay in the same room with you, or they should wear a facemask if they enter your room. Cover your coughs and sneezes Cover your mouth and nose with a tissue when you cough or sneeze. Throw used tissues in a lined trash can. Immediately wash your hands with soap and water for at least 20 seconds or, if soap and water are not available, clean your hands with an alcohol-based hand marketing engineer that contains at least 60% alcohol. Clean your hands often Wash your hands often with soap and water for at least 20 seconds, especially after blowing your nose, coughing, or sneezing; going to the bathroom; and before eating or preparing food. If soap and water are not readily available, use an alcohol-based hand marketing engineer with at least 60% alcohol, covering all surfaces of your hands and rubbing them together until they feel dry. Soap and water are the best option if hands are visibly dirty. Avoid touching your eyes, nose, and mouth with unwashed hands. Avoid sharing personal household items You should not share dishes, drinking glasses, cups, eating utensils, towels, or bedding with otherpeople or pets in your home. After using these items, they should be washed thoroughly with soap and water. Clean all high-touch surfaces everyday High touch surfaces include counters, tabletops, doorknobs, bathroom fixtures, toilets, phones, keyboards, tablets, and bedside tables. Also, clean any surfaces that may have blood, stool, or body fluids on them. Use a household cleaning spray or wipe, according to the label instructions. Labels contain instructions for safe and effective use of the cleaning product including precautions you should take when applying the product, such as wearing gloves and making sure you have good ventilation during use of the product. Monitor your symptoms Seek prompt medical attention if your illness is worsening (e.g., difficulty breathing). Before seeking care, call your healthcare provider and tell them that you have, or are being evaluated for, COVID-19. Put on a facemask before you enter the facility. These steps will help the healthcare provider's office to keep other people in the office or waiting room from getting infected or exposed. Askyour healthcare provider to call the local or [facility] health department. Persons who are placed underactive monitoring or facilitated self- monitoring should follow instructions provided by their localhealth department or occupational health professionals, as appropriate. When working with your local health department check their available hours. If you have a medical emergency and need to call 911, notify the dispatch personnel that you have, or are being evaluated for COVID-19. If possible, put on a facemask before emergency medical services arrive. Discontinuing home isolation Patients with confirmed COVID-19 should remain under home isolation precautions until the risk of secondary transmission to others is thought to be low. The decision to discontinue home isolation precautions should be made on a pmdp-vk-jikk basis, in consultation with healthcare providers and stateand local health departments. Information on Covid-19 for all patients Call your provider before your next appointment if you develop any of the following symptoms: fever, cough, fatigue, anorexia, shortness of breath, sputum production, and muscle pains. Headache, confusion, rhinorrhea, sore throat, hemoptysis, vomiting, and diarrhea have been reported but are less common. Some persons with COVID-19 have experienced gastrointestinal symptoms such as diarrhea and nausea prior to developing fever and lower respiratory tract signs and symptoms. Ways to [place] with Anxiety & Stress It is normal to feel anxious or worried about COVID-19. You might feel sad about canceling celebrations and staying away from family and friends. Keep in mind that most people do not get severely ill from COVID-19. It is important to have a planin case you get sick to prevent spreading the disease to others including an Advanced Care Plan (communicating and documenting your desired health care plan with family and healthcare team). You can take care of yourself by: ? Taking a break from watching the news ? Take deep breaths, stretch or meditate ? Getting exercise, eating healthy foods, and drinking plenty of water ? Finding activities you can enjoy inside your home ? Staying in touch with your family and friends. Tell your partner, family, and friends how you arefeeling. Advance Care Planning People with COVID-19 may have no symptoms, mild symptoms, such as fever, cough, and shortness of breath or they may have more severe illness, developing severe and fatal pneumonia. As a result, Advance Care Planning with attention to naming a health care decision maker (someone you trust to make healthcare decisions for you if you could not speak for yourself) and sharing other health care preferences is important BEFORE a possible health crisis. Please contact your Primary Care Provider to discuss Advance Care Planning. Learning About Coronavirus (COVID-19) Coronavirus (COVID-19): Overview What is coronavirus (COVID-19)? The coronavirus disease (COVID-19) is caused by a virus. It is an illness that was first found in [facility], in April 2019. It has since spread worldwide. The virus can cause fever, cough, and trouble breathing. In severe cases, it can cause pneumonia and make it hard to breathe without help. It can cause . Coronaviruses are a large group of viruses. They cause the common cold. They also cause more serious illnesses like [place] respiratory syndrome (MERS) and severe acute respiratory syndrome (SARS). COVID-19 is caused by a novel coronavirus. That means it's a new type that has not been seen in people before. This virus spreads [id number] through droplets from coughing and sneezing. It can also spreadwhen you are close to someone who is infected. And it can spread when you touch something that has the virus on it, such as a doorknob or a tabletop. What can you do to protect yourself from coronavirus (COVID-19)? The best way to protect yourself from getting sick is to: Avoid areas where there is an outbreak. Avoid contact with people who may be infected. Wash your hands often with soap or alcohol-based hand sanitizers. Avoid crowds and try to stay at least 6 feet away from other people. Wash your hands often, especially after you cough or sneeze. Use soap and water, and scrub for at least 20 seconds. If soap and water aren't available, use an alcohol-based hand marketing engineer. Call 911 anytime you think you may need emergency care. For example, call if: You have severe trouble breathing. (You can't talk at all.) You have constant chest pain or pressure. You are severely dizzy or lightheaded. You are confused or can't think clearly. Your face and lips have a blue color. You pass out (lose consciousness) or are very hard to wake up. Call your doctor now if you develop symptoms such as: Shortness of breath. Fever. Cough. If you need to get care, call ahead to the doctor's office for instructions before you go. Make sure you wear a face mask, if you have one, to prevent exposing other people to the virus. Where can you get the latest information? The following health organizations are tracking and studying this virus. Their websites contain themost up-to-date information. You'll also learn what to do if you think you may have been exposed tothe virus. U.S. Centers for Disease Control and Prevention (CDC): The CDC provides updated news about the disease and travel advice. The website also tells you how to prevent the spread of infection. www.cdc.gov World Health Organization (WHO): WHO offers information about the virus outbreaks. WHO also has travel advice. www.who.int Current as of: August 11, 2019 Content Version: . [employer]. Care instructions adapted under license by your healthcare professional. If you have questions about a medical condition or this instruction, always ask your healthcare professional. [employer] disclaims any warranty or liability for your use of this information. General Recommendations for Routine Cleaning and Disinfection of Households Community members can practice routine cleaning of frequently touched surfaces (for example: tables, doorknobs, light switches, handles, desks, toilets, faucets, sinks) with household supervisor webbing and EPA-registered disinfectants that are appropriate for the surface, following label instructions. Labels contain instructions for safe and effective use of the cleaning product including precautions you should take when applying the product, such as wearing gloves and making sure you have good ventilation during use of the product. These guidelines are focused on household settings and are meant for the general public. ? Cleaning refers to the removal of germs, dirt, and impurities from surfaces. Cleaning does not kill germs, but by removing them, it lowers their numbers and the risk of spreading infection. ? Disinfecting refers to using chemicals to kill germs on surfaces. This process does not necessarily clean dirty surfaces or remove germs, but by killing germs on a surface after cleaning, it can further lower the risk of spreading infection. General Recommendations for Cleaning and Disinfection of Households with People Isolated in Home Care - Confirmed or suspected COVID 19 ? Household members should educate themselves about COVID-19 symptoms and preventing the spread of COVID-19 in homes. ? Clean and disinfect high-touch surfaces daily in household common areas (e.g. tables, hard-backedchairs, doorknobs, light switches, remotes, handles, desks, toilets, sinks) o In the bedroom/bathroom dedicated for an ill person: consider reducing cleaning frequency to as-needed (e.g., soiled items and surfaces) to avoid unnecessary contact with the ill person. ? As much as possible, an ill person should stay in a specific room and away from other people in their home. ? The caregiver can provide personal cleaning supplies for an ill person's room and bathroom, unless the room is occupied by child or another person for whom such supplies would not be appropriate. These supplies include tissues, paper towels, supervisor webbing and EPA-registered disinfectants (see list link at CDC website). ? If a separate bathroom is not available, the bathroom should be cleaned and disinfected after each use by an ill person. If this is not possible, the caregiver should wait as long as practical after use by an ill person to clean and disinfect the high-touch surfaces. How to clean and disinfect: Hard Surfaces ? Wear disposable gloves when cleaning and disinfecting surfaces. Gloves should be discarded after each cleaning. If reusable gloves are used, those gloves should be dedicated for cleaning and disinfection of surfaces for COVID-19 and should not be used for other purposes. Consult the devulcanizer tender's instructions for cleaning and disinfection products used. Clean hands immediately after gloves areremoved. ? If surfaces are dirty, they should be cleaned using a detergent or soap and water prior to disinfection. ? For disinfection, diluted household bleach solutions, alcohol solutions with at least 70% alcohol, and most common EPA-registered household disinfectants should be effective. o Diluted household bleach solutions can be used if appropriate for the surface. Follow devulcanizer tender's instructions for application and proper ventilation. Check to ensure the product is not past itsexpiration date. Never mix household bleach with ammonia or any other cleanser. Unexpired householdbleach will be effective against coronaviruses when properly diluted. ? Prepare a bleach solution by mixing: ? 5 tablespoons (1/3rd cup) bleach per gallon of water or ? 4 teaspoons bleach per quart of water o Products with EPA-approved emerging viral pathogens [facility] hospital[facility] iconexternal icon are expected to be effective against COVID-19 based on data for harder to kill viruses. Follow the devulcanizer tender's instructions for all cleaning and disinfection products (e.g., concentration, application method and contact time, etc.). Soft (porous) surfaces such as carpeted floor, rugs, and drapes Remove visible contamination if present and clean with appropriate supervisor webbing indicated for use on these surfaces. After cleaning: Launder items as appropriate in accordance with the devulcanizer tender's instructions. If possible, launder items using the warmest appropriate water setting for the items and dry items completely, or Clothing, towels, linens and other items that go in the laundry ? Wear disposable gloves when handling dirty laundry from an ill person and then discard after eachuse. If using reusable gloves, those gloves should be dedicated for cleaning and disinfection of surfaces for COVID-19 and should not be used for other household purposes. Clean hands immediately after gloves are removed. o If no gloves are used when handling dirty laundry, be sure to wash hands afterwards. o If possible, do not shake dirty laundry. This will minimize the possibility of dispersing virus through the air. o Launder items as appropriate in accordance with the devulcanizer tender's instructions. If possible, launder items using the warmest appropriate water setting for the items and dry items completely. Dirtylaundry from an ill person can be washed with other people's items. o Clean and disinfect clothes hampers according to guidance above for surfaces. If possible, consider placing a station baggage agent that is either disposable (can be thrown away) or can be laundered. CDC has a list of EPA approved cleaning products on their website - https://www.cdc.gov/coronavirus/ 2019-ncov/community/home/cleaning-disinfection.html https://www.[employer].Vibby/Xchfg-Gqhvxtpzack-Gllqmhgz-Products-List.pdf [employer] with delivery and sweet pickle maker services: [employer]: Free sweet pickle maker at locations Delivery is $12.95 a month Website - [employer] [place]: Agency Service Representative $2.95 (1st order is free) Delivery is $14.95 Website - [employer]: business support specialist is free Delivery is $5.95 [employer]: business support specialist is $4.95 Delivery is $9.95 Website [employer]: business support specialist is $4.95 Delivery is $9.95 Website [employer]: Can be ordered for delivery and sweet pickle maker with [employer] Website - [employer]: Free deliver for first 3 orders of $35 or more Website [employer]iki Will deliver from [employer], [employer], [employer], and [employer]. Annual membership is $99 Monthly membership is $14 hilliard documented in this encounter History of Present Illness * Lei Leonardo MD - 10/25/2019 12:13 PM EDT CHEMICAL DEPENDENCY PROGRESS NOTE PATIENT: Josi Briones [facility] complaint Chief Complaint Patient presents with Other detox Seen for follow up of substance dependence and use and to monitor withdrawals S: Patient seen and examined. Overall symptoms improving. REVIEW OF SYMPTOMS: Patient denies CP or SOB.Denies audio-, visual or tactile hallucinations. Denies dizziness or visual changes. Denies acute pain. Denies rhinorrhea, lacrimation, cough or sore throat. No difficulty ambulating, urinating, swallowing. Denies rash O: Vitals: 10/25/19 0845 BP: 96/69 Pulse: 86 Resp: 16 Temp: 98.5 F (36.9 C) SpO2: 95% Patient seen and examined. Alert and oriented x 3. NAD. Head: NCAT. Skin: warm, dry Insight and judgement are fair. Denies suicidal or homocidal ideation. Cognition intact. Denies audio, visual or tactile hallucinations. Not responding to internal stimuli, good eye contact. No results found for this or any previous visit (from the past 24 hour(s)). Assessment/Plan: opioid use disorder severe with withdrawals Only need 2 mg in the past 30 hours Evaluated the patient cina score and is low to zero, Ok to d/c home will give a script for one pill 2 mg in case she need 1 mg q [address] rubio lizama with the detox Will continue to monitor continue medications, adjust per symptoms/signs - recommend follow up after discharge per SW Remaining medical management per primary team. Addiction medicine signing off. Please Recall if further assistance needed. I spent over 51% of total time 35 minutes counseling and coordinating care and provided discussion regarding this patient's condition ,chemical dependency, psychiatric and medical history, symptoms and signs , reviewing past detoxification hospitalizations, assessing withdrawal status, evaluating de toxification medications, and discussing lab work and treatment plan, with providing options. LEI LEONARDO MD Addiction Medicine 10/25/2019 at 12:13 PM * Lawanda Piedra, - 10/25/2019 5:47 AM EDT Maternal Medicine Service Resident Progress Note 10/25/2019 5:48 AM 10/21/2019 Hospital Day: 5 Josi Briones, 29 y.o. 7w4d Patient has been seen and examined. No complaints. Denies cramping or vaginal bleeding. Vitals: 10/24/19 0540 10/24/19 1103 10/24/19 1707 10/24/19 2154 BP: 90/61 (!) 119/59 118/72 Pulse: 62 84 67 89 Resp: 16 18 16 16 Temp: 97.6 F (36.4 C) 98.5 F (36.9 C) 98.4 F (36.9 C) 98.2 F (36.8 C) TempSrc: Temporal Oral Oral Temporal SpO2: 99% 98% Weight: Height: FHR: 146 bpm by BSUS on admission Accels: N/A Decels: N/A Contractions: N/A Physical Exam: Gen: NAD HEENT: Normocephalic, Atraumatic, EOMI, MMM Resp: CTABL, no WRR Card: RRR S1S2 Abd: soft, gravid, NTND, no rebound, no guarding. No fundal tenderness Ext: No LE edema, no calf tenderness or swelling Medications: Current Facility-Administered Medications Medication Dose Route Frequency Provider Last Rate Last Dose buprenorphine (SUBUTEX) SL tablet 2 mg 2 mg Sublingual Daily PRN Sacha Steele MD 2 mg at 10/25/19 0037 aluminum & magnesium hydroxide-simethicone (MAALOX) 200-200-20 MG/5ML suspension 30 mL 30 mL Oral Q6H PRN Sacha Steele MD magnesium hydroxide (MILK OF MAGNESIA) 400 MG/5ML suspension 30 mL 30 mL Oral Daily PRN Sacha Steele MD albuterol sulfate HFA 108 (90 Base) MCG/ACT inhaler 2 puff 2 puff Inhalation Q6H PRN Frida Gomez, DO 2 puff at 10/23/19 0617 nicotine (NICODERM CQ) 7 MG/24HR 1 patch 1 patch Transdermal Daily Marge Chu MD 1 patch at 10/24/19 1831 sertraline (ZOLOFT) tablet 50 mg 50 mg Oral Daily Alistair Toussaint, DO 50 mg at 10/24/19 1059 acetaminophen (TYLENOL) tablet 650 mg 650 mg Oral Q4H PRN Marge Chu MD 650 mg at 151 ondansetron (ZOFRAN-ODT) disintegrating tablet 4 mg 4 mg Oral Q4H PRN Marge Chu MD 4 mg at 10/25/19 0037 vitamin 27-1 MG tablet 1 tablet 1 tablet Oral Daily Marge Chu MD 1 tablet at 10/24/19 1058 nitrofurantoin (macrocrystal-monohydrate) (MACROBID) capsule 100 mg 100 mg Oral BID Marge Chu MD 100 mg at 10/24/19 2211 Assessment/Plan: Josi Briones is a 29 y.o. female 7w4d Substance Use - 5y history of cocaine and heroin abuse - Sober > 1 year on suboxone 8mg QD, stopped 10 days prior to discharge planning to wean - UDS +THC on admission - ADM reqs - Continue to ween Subutex - Subutex 2 mg ordered daily PRN, last dose ON at 0037 - COWS 6 ON Tobacco Use - 1/2 PPD - Nicotine patch prn Asthma - Reports daily albuterol use - Hospitalized as a child, no intubations - Asthma flares with - Albuterol inhaler ordered PRN UTI - Was diagnosed by OB provider - Reports having frequent UTIs but denies urinary symptoms - Continue Macrobid x 5 days, ending today IUP @ 7w4d - Gestational sac with pole and cardiac activity on BSUS - PNV - NOB labs WNL on admission - FHT daily - Gen Diet Further plan pending d/w attending. Lawanda Piedra DO 10/25/2019, 5:48 AM Associated attestation - Marge Abbott DO - 10/25/2019 5:05 PM EDT Attending Supervising Physician's Attestation Statement I performed a history and physical examination on the patient and discussed the management with theresident physician. I reviewed and agree with the findings and plan as documented in the note. I spent 15 minutes in the visit, with more than 50% of the total [id number] time of the visit in counseling/coordination of care. * Elvia Fan RN - 10/24/2019 9:58 PM EDT Pt COWS score = 4. Pt was sleeping and woke up for vitals, scoring and assessment. Pt states I do not want the subutex. I am off it now. I talked to the doctors and went through it all with them (referring to discussing subutes with them). I don't have to take it if I don't want. I verified with her that order now is PRN/as needed. * Sacha Steele MD - 10/24/2019 10:50 AM EDT Addiction Medicine Inpatient Progress Note PATIENT: Josi Briones Chief Complaint Patient presents with Other detox Problem List: Active Problems: Severe opioid use disorder, in sustained remission (HCC) Opioid withdrawal (HCC) Drug use affecting in first trimester Resolved Problems: * No resolved hospital problems. * Subjective Interim History: No major overnight events Some nausea Tolerating lower dose of subutex Review of Systems: Review of Systems Constitutional: Negative. HENT: Negative. Gastrointestinal: Positive for nausea. Musculoskeletal: Negative. Neurological: Negative. Psychiatric/Behavioral: Negative. All other systems reviewed and are negative. Objective Physical Exam: Vitals: 10/23/19 0922 10/23/19 1606 10/23/19 2040 10/24/19 0540 BP: 99/66 104/69 (!) 90/53 90/61 Pulse: 77 91 78 62 Resp: 16 18 17 16 Temp: 97.8 F (36.6 C) 97.8 F (36.6 C) 98.2 F (36.8 C) 97.6 F (36.4 C) TempSrc: Temporal Temporal Temporal Temporal SpO2: 98% 98% 96% 99% Weight: Height: Physical Exam Constitutional: She appears well-developed and well-nourished. No distress. HENT: Head: Normocephalic and atraumatic. Eyes: Pupils are equal, round, and reactive to light. Conjunctivae and EOM are normal. No scleral icterus. Neck: Normal range of motion. Neck supple. Cardiovascular: Normal rate and regular rhythm. Pulmonary/Chest: Effort normal and breath sounds normal. Abdominal: Soft. Bowel sounds are normal. Skin: She is not diaphoretic. Psychiatric: She has a normal mood and affect. Her speech is normal and behavior is normal. Judgment and thought content normal. Cognition and memory are normal. Nursing note and vitals reviewed. Medications: nicotine 1 patch Transdermal Daily sertraline 50 mg Oral Daily vitamin 1 tablet Oral Daily nitrofurantoin (macrocrystal-monohydrate) 100 mg Oral BID buprenorphine, aluminum & magnesium hydroxide-simethicone, magnesium hydroxide, albuterol sulfate HFA, acetaminophen, ondansetron Recent Imaging: No results found. Labs: No results found for this or any previous visit (from the past 24 hour(s)). CBC: Recent Labs 10/22/19 0026 WBC 10.5 HGB 14.1 PLT 290 MCV 91.4 RDW 13.2 Assessment Severe opioid use disorder that has been in remission on MAT. Has also abused cocaine in the past but not during this or recently. Now has a desire to stop subutex MAT Subutex withdrawal (she abruptly stopped subutex use about 10 days prior to arrival to our hospitaland then was restarted on it on 10/21 so that we can taper her off more slowly. UTI Plan Changing subutex to 2 mg qd prn starting tonight. PRN medications available for opioid withdrawal. Psych consult. Nicotine use. Recovery plan: She will return to the care of Dr. Hayward for addiction treatment after discharge. She no longer wants to be on subutex MAT. Remaining medical management per primary team. Likely needs at least 2-3 more days of admission for detoxification. Will follow. Sacha Steele MD Addiction Medicine 10/24/2019 at 10:52 AM I spent over 51% of total time 25 minutes counseling or coordinating care regarding patient's chemical dependency status. * Huber Weiss MD - 10/24/2019 5:55 AM EDT Maternal Medicine Service Resident Progress Note 10/24/2019 5:55 AM 10/21/2019 Hospital Day: 4 Josi Briones, 29 y.o. 7w3d Patient has been seen and examined. Pt reports mild nausea which is baseline for her in AM. Overallreports symptom improvement. Denies DFM, VB, LOF, CTX Vitals: 10/23/19 0922 10/23/19 1606 10/23/19 2040 10/24/19 0540 BP: 99/66 104/69 (!) 90/53 90/61 Pulse: 77 91 78 62 Resp: 16 18 17 16 Temp: 97.8 F (36.6 C) 97.8 F (36.6 C) 98.2 F (36.8 C) 97.6 F (36.4 C) TempSrc: Temporal Temporal Temporal Temporal SpO2: 98% 98% 96% 99% Weight: Height: Physical Exam: Gen: NAD HEENT: Normocephalic, Atraumatic, EOMI, MMM Resp: CTABL, no WRR Card: RRR S1S2 Abd: soft, gravid, NTND, no rebound, no guarding. Denies fundal tenderness Ext: No LE edema, no calf tenderness or swelling Medications: Current Facility-Administered Medications Medication Dose Route Frequency Provider Last Rate Last Dose buprenorphine (SUBUTEX) SL tablet 2 mg 2 mg Sublingual Q12H PRN Sacha Steele MD aluminum & magnesium hydroxide-simethicone (MAALOX) 200-200-20 MG/5ML suspension 30 mL 30 mL Oral Q6H PRN Sacha Steele MD magnesium hydroxide (MILK OF MAGNESIA) 400 MG/5ML suspension 30 mL 30 mL Oral Daily PRN Sacha Steele MD albuterol sulfate HFA 108 (90 Base) MCG/ACT inhaler 2 puff 2 puff Inhalation Q6H PRN Frida Gomez, DO 2 puff at 10/23/19 0617 nicotine (NICODERM CQ) 7 MG/24HR 1 patch 1 patch Transdermal Daily Marge Chu MD 1 patch at 10/23/19 0928 sertraline (ZOLOFT) tablet 50 mg 50 mg Oral Daily Alistair Toussaint, DO 50 mg at 10/23/19 1033 acetaminophen (TYLENOL) tablet 650 mg 650 mg Oral Q4H PRN Marge Chu MD 650 mg at 151 ondansetron (ZOFRAN-ODT) disintegrating tablet 4 mg 4 mg Oral Q4H PRN Marge Chu MD 4 mg at 10/23/19 2151 vitamin 27-1 MG tablet 1 tablet 1 tablet Oral Daily Marge Chu MD 1 tablet at 10/23/19 1033 nitrofurantoin (macrocrystal-monohydrate) (MACROBID) capsule 100 mg 100 mg Oral BID Marge Chu MD 100 mg at 10/23/19 2225 Assessment/Plan: Josi Briones is a 29 y.o. female 7w3d Substance Use - 5y history of cocaine and heroin abuse - Sober > 1 year on suboxone 8mg QD, stopped 10 days prior to discharge planning to wean - UDS +THC on admission - ADM reqs - Continue to ween Subutex - Currently on Subutex q8h however only received 2 doses yesterday. - Subutex 2 mg ordered q 12 h today - COWS 4 this AM Tobacco Use - 1/2 PPD - Nicotine patch prn Asthma - Reports daily albuterol use - Hospitalized as a child, no intubations - Asthma flares with - Albuterol inhaler ordered PRN UTI - Was diagnosed by OB provider - Reports having frequent UTIs but denies urinary symptoms - Continue Macrobid x 5 days ending on 10/24 IUP @ 7w3d - Gestational sac with pole and cardiac activity on BSUS - PNV - NOB labs WNL on admission - FHT daily - Gen Diet Further plan pending d/w attending. Huber Weiss MD 10/24/2019, 5:55 AM Associated attestation - Carla Leslie MD - 10/24/2019 12:41 PM EDT I performed a history and physical examination on the patient and discussed the management with theresident physician. I reviewed and agree with the findings and plan as documented in their note today. 29 at 7 3/7 GA with the following: Substance abuse admission Tobacco usage Appreciate ongoing addiction medication recommendations. I spent 15 minutes in the visit today on the floor reviewing the chart, discussing the case with the residency staff and nursing Carla Leslie MD * Eleni Muir DTR - 10/23/2019 2:19 PM EDT Nutrition rescreen completed. Chart reviewed. Patient to be monitored and followed by the diet safety relief valve technician. * Sacha Steele MD - 10/23/2019 11:46 AM EDT Addiction Medicine Inpatient Progress Note PATIENT: Josi Briones Chief Complaint Patient presents with Other detox Problem List: Active Problems: Severe opioid use disorder, in sustained remission (HCC) Opioid withdrawal (HCC) Drug use affecting in first trimester Resolved Problems: * No resolved hospital problems. * Subjective Interim History: Mild subutex withdrawal symptoms at worst, at this point Discussed her desire to stop subutex MAT use during this once again, and I recommended that she does instead continue it since she was able to maintain sobriety. Discussed risks of stoppinguse during including a higher likelihood of drug relapse, and unnecessarily going thru opioid withdrawal which may cause demise but she is steadfast in not wanting to continue subutexduring this Review of Systems: Review of Systems Constitutional: Negative. HENT: Negative. Respiratory: Negative. Gastrointestinal: Positive for nausea. Genitourinary: Negative. Musculoskeletal: Negative. Neurological: Negative. Psychiatric/Behavioral: Negative. Objective Physical Exam: Vitals: 10/22/19 1651 10/22/19 2054 10/23/19 0607 10/23/19 0922 BP: 107/70 95/63 104/63 99/66 Pulse: 94 73 65 77 Resp: 18 16 20 16 Temp: 97.5 F (36.4 C) 97.3 F (36.3 C) 98 F (36.7 C) 97.8 F (36.6 C) TempSrc: Temporal Temporal Temporal Temporal SpO2: 99% 98% 94% 98% Weight: Height: Physical Exam Constitutional: She appears well-developed and well-nourished. No distress. HENT: Head: Normocephalic and atraumatic. Eyes: Pupils are equal, round, and reactive to light. Conjunctivae and EOM are normal. No scleral icterus. Neck: Normal range of motion. Neck supple. Cardiovascular: Normal rate and regular rhythm. Pulmonary/Chest: Effort normal and breath sounds normal. Abdominal: Soft. Bowel sounds are normal. Skin: She is not diaphoretic. Psychiatric: She has a normal mood and affect. Her speech is normal and behavior is normal. Judgment and thought content normal. Cognition and memory are normal. Nursing note and vitals reviewed. Medications: buprenorphine 2 mg Sublingual 3 times per day nicotine 1 patch Transdermal Daily sertraline 50 mg Oral Daily vitamin 1 tablet Oral Daily nitrofurantoin (macrocrystal-monohydrate) 100 mg Oral BID [START ON 10/24/2019] buprenorphine, aluminum & magnesium hydroxide-simethicone, magnesium hydroxide, albuterol sulfate HFA, acetaminophen, ondansetron Recent Imaging: No results found. Labs: No results found for this or any previous visit (from the past 24 hour(s)). CBC: Recent Labs 10/22/19 0026 WBC 10.5 HGB 14.1 PLT 290 MCV 91.4 RDW 13.2 Assessment Severe opioid use disorder that has been in remission on MAT. Has also abused cocaine in the past. Now a desire to stop subutex MAT Subutex withdrawal (she abruptly stopped subutex use about 10 days prior to arrival to our hospitaland then was restarted on it yesterday so that we can taper her off more slowly. UTI Plan Will give her 2 mg tonight of subutex, then make this 2 mg BID prn starting tomorrow. PRN medications available for opioid withdrawal. Psych consult. Nicotine use. Recovery plan: She will return to the care of Dr. Hayward for addiction treatment after discharge. She no longer wants to be on subutex MAT. Remaining medical management per primary team. Likely needs at least 2-3 more days of admission for detoxification. Will follow. Sacha Steele MD Addiction Medicine 10/23/2019 at 11:52 AM I spent over 51% of total time 25 minutes counseling or coordinating care regarding patient's chemical dependency status. * Lakisha Aguilar, - 10/23/2019 7:30 AM EDT Maternal Medicine Service Resident Progress Note 10/23/2019 7:30 AM 10/21/2019 Hospital Day: 3 Josi Briones, 29 y.o. 7w2d Patient has been seen and examined. Patient reports her withdrawal symptoms are improving. Denies severe abdominal pain or vaginal bleeding. Vitals: 10/22/19 1239 10/22/19 1651 10/22/19 2054 10/23/19 0607 BP: 107/70 95/63 104/63 Pulse: 94 73 65 Resp: 18 16 20 Temp: 97.5 F (36.4 C) 97.3 F (36.3 C) 98 F (36.7 C) TempSrc: Temporal Temporal Temporal SpO2: 99% 98% 94% Weight: 131 lb 2.8 oz (59.5 kg) Height: 5' 2 (1.575 m) Physical Exam: Gen: NAD HEENT: Normocephalic, Atraumatic, EOMI, MMM Resp: CTABL, no WRR Card: RRR S1S2 Abd: soft, gravid, NTND, no rebound, no guarding. Ext: No LE edema, no calf tenderness or swelling Medications: Current Facility-Administered Medications Medication Dose Route Frequency Provider Last Rate Last Dose albuterol sulfate HFA 108 (90 Base) MCG/ACT inhaler 2 puff 2 puff Inhalation Q6H PRN Frida Gomez DO 2 puff at 10/23/19 0617 nicotine (NICODERM CQ) 7 MG/24HR 1 patch 1 patch Transdermal Daily Marge Chu MD buprenorphine (SUBUTEX) SL tablet 2 mg 2 mg Sublingual 3 times per day Steve Domínguez MD 2 mg at 10/23/19612 sertraline (ZOLOFT) tablet 50 mg 50 mg Oral Daily Alistair Toussaint DO 50 mg at 10/22/192055 acetaminophen (TYLENOL) tablet 650 mg 650 mg Oral Q4H PRN Marge Chu MD 650 mg at ondansetron (ZOFRAN-ODT) disintegrating tablet 4 mg 4 mg Oral Q4H PRN Marge Chu MD 4 mg at 10/22/192151 vitamin 27-1 MG tablet 1 tablet 1 tablet Oral Daily Marge Chu MD 1 tablet at 10/22/19 1243 nitrofurantoin (macrocrystal-monohydrate) (MACROBID) capsule 100 mg 100 mg Oral BID Marge Chu MD 100 mg at 10/22/192055 Assessment/Plan: Josi Briones is a 29 y.o. female 7w2d Substance Use - 5y history of cocaine and heroin abuse - Sober > 1 year on suboxone 8mg QD, stopped 10d ago as wishes to wean off this pregnacy - UDS +THC - Addiction Medicine consulted - subutex 2mg q8hr Tobacco Use - 1/2 PPD - Nicotine patch prn Hx PreEclampsia in Prior - In G1 and G2 - Reports normal BP in between pregnancies - Normotensive on admission Hx PPH - With G2 - Reports blacking out and states people were pressing all over her - Denies receiving blood products Hx 4th Degree Laceration - With G1 - Denies significant lacerations with G2-G4 Asthma - Reports daily albuterol use - Hospitalized as a child, no intubations - Asthma flares with - Albuterol inhaler ordered PRN Rh negative - No vaginal bleeding - Rhogam at 28w and UTI - Was diagnosed by OB provider - Reports having frequent UTIs but denies urinary symptoms - Has been taking Macrobid x3d - Continue Macrobid IUP @ 7w2d - Gestational sac with pole and cardiac activity on BSUS - PNV - NOB labs ordered - FHT daily - Gen Diet No problem-specific Assessment & Plan notes found for this encounter. Further plan pending d/w attending. Lakisha Aguilar DO 10/23/2019, 7:30 AM Associated attestation - Carla Leslie MD - 10/23/2019 12:53 PM EDT I performed a history and physical examination on the patient and discussed the management with theresident physician. I reviewed and agree with the findings and plan as documented in their note today. 29 at 7 2/7 GA with the following: Substance abuse admission Tobacco usage I spent 15 minutes in the visit today on the floor reviewing the chart, discussing the case with the residency staff and nursing Carla Leslie MD * Meenakshi Etienne MD - 10/22/2019 6:05 AM EDT Maternal Medicine Service Resident Progress Note 10/22/2019 6:05 AM 10/21/2019 Hospital Day: 2 Josi Briones, 29 y.o. 7w1d Patient has been seen and examined. Pt reports tremors, anxiety, sweating, anxiety. COWS 7. Negative vaginal bleeding Negative cramping Vitals: 10/21/19 1822 10/22/19 0017 BP: 107/78 Pulse: 61 Resp: 20 Temp: 98.4 F (36.9 C) TempSrc: Temporal SpO2: 100% Weight: 133 lb (60.3 kg) Height: 5' 2 (1.575 m) FHT: 146 Physical Exam: Gen: NAD HEENT: Normocephalic, Atraumatic, EOMI, MMM Resp: CTABL, no WRR Card: RRR S1S2 Abd: soft, gravid, NTND, no rebound, no guarding. Ext: No LE edema, no calf tenderness or swelling Medications: Current Facility-Administered Medications Medication Dose Route Frequency Provider Last Rate Last Dose albuterol sulfate HFA 108 (90 Base) MCG/ACT inhaler 2 puff 2 puff Inhalation Q6H PRN Frida Gomez, DO 2 puff at 10/22/19 0428 nicotine (NICODERM CQ) 7 MG/24HR 1 patch 1 patch Transdermal Daily Marge Chu MD acetaminophen (TYLENOL) tablet 650 mg 650 mg Oral Q4H PRN Marge Chu MD ondansetron (ZOFRAN-ODT) disintegrating tablet 4 mg 4 mg Oral Q4H PRN Marge Chu MD vitamin 27-1 MG tablet 1 tablet 1 tablet Oral Daily Marge Chu MD nitrofurantoin (macrocrystal-monohydrate) (MACROBID) capsule 100 mg 100 mg Oral BID Marge Chu MD 100 mg at 10/22/19 0036 Assessment/Plan: Josi Briones is a 29 y.o. female 7w1d Substance Use - 5y history of cocaine and heroin abuse - Sober > 1 year on suboxone 8mg QD, stopped 10d ago as wishes to wean off this pregnacy - UDS +THC - COWS 7 - Addiction Medicine consulted - subutex 2mg q2hrs x4 doses Tobacco Use - 1/2 PPD - Nicotine patch prn Hx PreEclampsia in Prior - In G1 and G2 - Reports normal BP in between pregnancies - Normotensive on admission Hx PPH - With G2 - Reports blacking out and states people were pressing all over her - Denies receiving blood products Hx 4th Degree Laceration - With G1 - Denies significant lacerations with G2-G4 Asthma - Reports daily albuterol use - Hospitalized as a child, no intubations - Asthma flares with - Albuterol inhaler ordered PRN Rh negative - No vaginal bleeding - Rhogam at 28w and UTI - Was diagnosed by OB provider - Reports having frequent UTIs but denies urinary symptoms - Has been taking Macrobid x2d - Continue Macrobid IUP @ 7w1d - Gestational sac with pole and cardiac activity on BSUS - PNV - NOB labs ordered - FHT daily - Gen Diet Further plan pending d/w attending. Meenakshi Etienne MD 10/22/2019, 6:05 AM Associated attestation - Fernie Kowalski MD - 10/22/2019 2:19 PM EDT Maternal Medicine Attending Attestation: I have performed a history and physical examination on the patient and discussed the management with the residents physician. I reviewed and agree with the findings and plan as documented in the note. 29 y.o. at 7w1d with Detox I spent 15 minutes at the visit, with more than 50% of the total face to face time of the visit in counseling and coordination of care. Fernie Kowalski * Marge Chu MD - 10/21/2019 7:15 PM EDT Department of Obstetrics and Gynecology Labor and Delivery Triage Note CHIEF COMPLAINT: detox HISTORY OF PRESENT ILLNESS: The patient is a 29 y.o. 7w0d. OB History 5 Para 3 Term 3 AB Living 3 SAB TAB Ectopic Molar Multiple Live Births 3 Patient presents with a chief complaint as above. Patient received care in [place] and is currently 7w by a 6w ultrasound. Has a 5y history of cocaine and heroin use but has been sober for over 1 year. Patient was on subutex 12mg last and states her child had abstinence syndrome and states she does not want that to happen with this child. She has been on suboxone 8mg QD for over [address] Hayward. However, the patient stopped taking it 10d ago after finding out she was because she does not want this child to have ABI. However, now sheis complaining of withdrawal symptoms including sweating, anxiety, and sleeplessness. She does admit to recent THC use. She denies all obstetrical complaints. She has been diagnosed with a UTI for which she was prescribed macrobid. She has taken it for 2 days. Currently denies urinary symptoms. Denies DFM/VB/LOF/CTX Estimated Due Date: Estimated Date of Delivery: 06/08/20 PAST MEDICAL HISTORY: Past Medical History: Diagnosis Date Alcohol withdrawal syndrome without complication (HCC) 09/12/2018 Asthma Substance abuse affecting in first trimester, antepartum pt has hx of cocaine and heroin use Trauma PAST SURGICAL HISTORY: History reviewed. No pertinent surgical history. SOCIAL HISTORY: reports that she has been smoking. She has been smoking about 1.00 pack per day. She has never usedsmokeless tobacco. She reports current alcohol use. She reports current drug use. Drugs: Marijuana and Cocaine. MEDICATIONS: Prior to Admission medications Medication Sig Start Date End Date Taking? Authorizing Provider Vit-Fe Fumarate-FA ( VITAMIN) 27-1 MG TABS tablet Take 1 tablet by mouth daily 09/15/18 Tierra Cuellar MD CARE: Complicated by: 1) Rh negative 2) Asthma - daily albuterol use, hospitalized as a child 3) substance use 4) hx PreE with G1 and G2 5) Hx PPH with G2, no blood products 6) Hx 4th degree - G1 REVIEW OF SYSTEMS: Pertinent items are noted in HPI. APPEARANCE: Pain: no PHYSICAL EXAM: Vital Signs: VS wnl-reviewed/Respirations normal effort Vitals: 10/21/19 1822 Weight: 133 lb (60.3 kg) Height: 5' 2 (1.575 m) Abdomen: soft, NT, ND, no rebound/guarding Uterus: gravid/non-tender LE Edema: trace Speculum Exam: defer heart rate: 146 by BSUS Cervix: defer Contraction frequency: none Membranes: Intact RESULTS: NST: N/A GENERAL LABS: No results found for this or any previous visit (from the past 24 hour(s)). TRIAGE COURSE: Confirmed with BSUS. Will obtain UDS then plan to speak with Addiction Medicine. Patient needing to leave to smoke. Is signing out AMA. Explained that we will need to repeat UDS ifshe returns. Returned from smoking. Repeat UDS positive for THC only. COWS 12. Will admit and consult ADM. IMPRESSION: Opiate use disorder DISCUSSED WITH PNC PROVIDER: OB chief DISPOSITION: Admit to PNU Associated attestation - Neel Lopez DO - 10/22/2019 5:36 AM EDT I reviewed and agree with the care provided by the resident/CNM during the visit including the patient's medical history, the resident's findings in the physical exam, patient's diagnosis and treatment plan. documented in this encounter* Estelle Aquino DO - 02/23/2020 10:11 PM EDT Department of Obstetrics and Gynecology Labor and Delivery Triage Note CHIEF COMPLAINT: detox HISTORY OF PRESENT ILLNESS: OB History 5 Para 4 Term 4 AB 0 Living 4 SAB 0 TAB Ectopic Molar Multiple Live Births 4 Patient presents with a chief complaint as above. The patient is a 29 y.o. 24w6d who presents to triage for detox treatment. She is feeling well today. She is currently using crack cocaine, suboxone and marijuana. She last used crack cocaine, $20 worth yesterday evening around 9:30-10pm and then used suboxone 1/2 strip at 10:30pm. She says that she uses crack cocaine daily and has not used suboxone in a long time, she only used it in preparation for coming in for detox. She also drinks 2 Twisted Teas per week. 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 She denies trading sex for drugs. She currently lives in her own apartment and pays for rent with help from [employer]. Denies DFM/VB/LOF/CTX Estimated Due Date: Estimated Date of Delivery: 06/08/20 PAST MEDICAL HISTORY: Past Medical History: Diagnosis Date Alcohol withdrawal syndrome without complication (HCC) 09/12/2018 Anxiety Asthma Depression H/O migraine H/O pre-eclampsia in prior , currently pre-eclampsia in 2 prior pregnancies H/O urinary tract infection Substance abuse affecting in first trimester, antepartum pt has hx of cocaine and heroin use Trauma Vaginal delivery term x 4 PAST SURGICAL HISTORY: History reviewed. No pertinent surgical history. SOCIAL HISTORY: reports that she has been smoking. She has been smoking about 1.00 pack per day. She has never usedsmokeless tobacco. She reports previous alcohol use. She reports current drug use. Drugs: Marijuanaand Cocaine. MEDICATIONS: Prior to Admission medications Medication Sig Start Date End Date Taking? Authorizing Provider citalopram (CELEXA) 10 MG tablet Take 10 mg by mouth daily Yes Historical Provider, Melatonin 10 MG TABS Take 10 mg by mouth daily Yes Historical Provider, albuterol sulfate HFA 108 (90 Base) MCG/ACT inhaler Inhale 2 puffs into the lungs every 6 hours as needed 10/07/18 Yes Historical Provider, aspirin (ECOTRIN LOW STRENGTH) 81 MG EC tablet Take 81 mg by mouth daily 01/25/20 Yes Historical Provider, Vit-Fe Fumarate-FA ( VITAMIN) 27-1 MG TABS tablet Take 1 tablet by mouth daily 09/15/18 Yes Tierra Cuellar MD sertraline (ZOLOFT) 50 MG tablet Take 1 tablet by mouth daily Patient not taking: Reported on 02/23/2020 10/26/19 Alistair Toussaint DO CARE: Complicated by: 1. Rh neg 2. Substance abuse 3. Alcohol use REVIEW OF SYSTEMS: Pertinent items are noted in HPI. APPEARANCE: Pain: no PHYSICAL EXAM: Vital Signs: VS wnl-reviewed/Respirations normal effort Vitals: 02/23/20 2101 BP: (!) 109/54 Pulse: 80 Resp: 16 Temp: 98.6 F (37 C) TempSrc: Oral Weight: 63.5 kg (140 lb) Height: 5' 2 (1.575 m) Abdomen: soft, NT, ND, no rebound/guarding Uterus: gravid/non-tender LE Edema: trace Speculum Exam: Defer heart rate: Category I Cervix: Defer Contraction frequency: defer GENERAL LABS: No results found for this or any previous visit (from the past 24 hour(s)). TRIAGE COURSE: Discussed with ADM. Although not withdrawing at this time, will admit for observation and if COWS >4 will start Subutex 2mg. ESSION: Substance abuse DISCUSSED WITH PNC PROVIDER: Ob chief DISPOSITION: Admit to PNU Associated attestation - Meng Davila MD - 02/24/2020 2:31 AM EDT I reviewed and agree with the care provided by the resident/CNM during the visit including the patient's medical history, the resident's findings in the physical exam, patient's diagnosis and treatment plan. documented in this encounter Additional Source Comments INFORMATION SOURCE (unrecogn ized section and content) DATE CREATED AUTHOR AUTHOR'S ORGANIZ ATION 07/01/2018 [facility] Dinora Michelle DATE CREATED AUTHOR AUTHOR'S ORGANIZ ATION 02/29/2020 [facility] DATE CREATED AUTHOR AUTHOR'S ORGANIZ ATION 02/29/2020 [facility] DATE CREATED AUTHOR AUTHOR'S ORGANIZ ATION 06/20/2021 [facility] Reason for Visit (unrecogniz ed section and content) Reason Comments Other detox, last used at 2300 on 02/21 FOR RECORDS PERTAINING TO PATIENTS WHO ARE OR HAVE BEEN ENROLLED IN A CHEMICAL DEPENDENCY/SUBSTANCEABUSE PROGRAM, SOME INFORMATION MAY BE OMITTED. This clinical summary was aggregated from multiple sources. Caution should be exercised in using it in the provision of clinical care. This summary normalizes information from multiple sources, and as a consequence, information in this document may materially change the coding, format and clinical context of patient data. In addition, data may be omitted in some cases. CLINICAL DECISIONS SHOULD BE BASED ON THE PRIMARY CLINICAL RECORDS. [employer] provides no warranty or guarantee of the accuracy or completeness of information in this document.
[2023-07-14 21:34] VITALS: BP 137/96; PULSE 94; RESP 18; O2SAT 98
[2023-07-14 21:38] VITALS: BP 137/96; PULSE 94; RESP 14; TEMP 36.6; O2SAT 98
== END 2023-07-14 22:02 | disposition home or self-care (01) ==
PROVIDERS: Emergency Provider Emergency Medicine; PCP Internal Medicine; Visit Provider Emergency Medicine
DX: T40.601A Poisoning by unspecified narcotics, accidental (unintentional), initial encounter (principal); J45.909 Unspecified asthma, uncomplicated; F17.210 Nicotine dependence, cigarettes, uncomplicated
CPT/HCPCS: 99282